=== PATIENT | male | born 2005 | race Caucasian/White ===

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

== ENCOUNTER 2025-04-24 15:28 | Outpatient (OUT) | payer BC, SELFPAY ==
--- OUTSIDE RECORDS SUMMARY | 2025-01-02 05:00 | XMS_ITS ---
Author Organization [facility] es Address [address] [place] [address] Care Team Providers Care Serger Name Role Phone Monica, Yamini Primary Care Provider YEFRI CRUZ Unavailable [phone] REASON FOR VISIT BH F/U Encounters Encounter Location Date Provider Diagnosis [facility] [address] [place] [address] 01/02/2025 Yamini Anderson Plan Of Treatment Next Appt Details Provider Name:Yamini A Rochelle n, 04/29/2025 01:15:00 PM, [address] [place], [address], Progress Notes * DEA GAGE RDOB: [birth year] (19 yo M)Acc No.[id number]:01/02/2025 Behavioral Health Patient: Adri DEA AMEZQUITA Provider: Dante Anderson CNP :2005 A ge:19 Y S ex:Male Date:01/02/2025 Address:[address] [place], [place] [id number] Subjective: * Chief Complaints: * 1 . BH F/U. * Medical History: Objective: * Vitals: Assessment: Plan: * Treatment: * Images: * Electronic signature of RYDER Medeiros on 04/24/2025 at 03:33 PM EDT Sign off status: Pending * Provider: Dante Anderson CNP Date: 0 01/02/2025 Generated for Ryan chung/Marcela/Dc on: 0 04/24/2025 03:33 PM EDT
--- OUTSIDE RECORDS SUMMARY | 2025-01-05 05:15 | XMS_ITS ---
Author Organization [facility] es Address [address] [place] [address] Care Team Providers Care Baker Operator Automatic Name Role Phone Monica, Yamini Primary Care Provider YEFRI CRUZ Unavailable [phone] REASON FOR VISIT R/S FROM 01/02; F/U Encounters Encounter Location Date Provider Diagnosis [facility] [address] [place] [address] 01/05/2025 Yamini Anderson Plan Of Treatment Next Appt Details Provider Name:Yamini Juan Rochelle n, 04/29/2025 01:15:00 PM, [address] [place], [address], Progress Notes * DEA GAGE RDOB: [birth year] (19 yo M)Acc No.[id number]:01/05/2025 Behavioral Health Patient: Adri DEA AMEZQUITA Provider: Dante Anderson CNP :2005 A ge:19 Y S ex:Male Date:01/05/2025 Address:[address] [place], [place] [address] Subjective: * Chief Complaints: * 1 . R/S FROM 01/02; F/U. * Medical History: Objective: * Vitals: Assessment: Plan: * Treatment: * Images: * Electronic signature of RYDER Medeiros on 04/24/2025 at 03:33 PM EDT Sign off status: Pending * Provider: Dante Anderson CNP Date: 0 01/05/2025 Generated for Ryan chung/Marcela/Brayanitting on: 0 04/24/2025 03:33 PM EDT
--- OUTSIDE RECORDS SUMMARY | 2025-03-27 12:30 | XMS_ITS ---
Author Organization [facility] es Address [address] [place] [address] Care Team Providers Care Registrar Assistant Name Role Phone Yamini Anderson Primary Care Provider YEFRI CRUZ REASON FOR VISIT BH F/U Medications Medication SIG (Take, Route, Frequency, Duration) Notes Start Date End Date Status busPIRone HCl 10 MG 1 tablet Orally Twic e a day; Duration: 90 days Active ARIPiprazole 10 MG TAKE 1 TABLET BY HAYDEE TH EVERY DAY FOR 90 DAYS; Duration: 30 Active Escitalopram Oxalate 10 MG 1 tablet Oral ly Once a day; Duration: 30 days 02/25/2025 Active Encounters Encounter Location Date [address] [place] [address] 03/27/2025 Yamini Anderson Plan Of Treatment Next Appt Details Provider Name:Yamini brennan, 04/29/2025 01:15:00 PM, [address] [place], [address], Progress Notes * DEA GAGE RDOB: [birth year] (19 yo M)Acc No.[id number]:03/27/2025 Behavioral Health Patient: DEA JOSE Provider: Dante Anderson CNP :2005 A ge:19 Y S ex:Male Date:03/27/2025 Address:[address] [place], [place] [id number] Subjective: * Chief Complaints: * 1 . BH F/U. * Medical History: * Medications: T aking busPIRone HCl 10 MG Tablet 1 tablet Orally Twice a day , Taking ARIPiprazole 10 MG Tablet TAKE 1 TABLET BY MOUTH EVERY DAY FOR 90 DAYS , Taking Escitalopram Oxalate 10 MG Tablet 1 tablet Orally Once a day Objective: * Vitals: Assessment: Plan: * Treatment: * Images: * Electronic signature of RYDER Medeiros on 04/24/2025 at 03:33 PM EDT Sign off status: Pending * Provider: Dante Anderson, KAYY Date: 03/27/2025 Generated for Ryan chung/Marcela/Dc on: 04/24/2025 03:33 PM EDT
--- OUTSIDE RECORDS SUMMARY | 2025-04-24 15:33 | XMS_ITS | Patient Health Record ---
Author Organization [facility] es Address [address] [place] [address] Care Team Providers Care Sweatband Cutting Machine Operator Name Role Phone Monica Yamini Primary Care Provider YEFRI CRUZ Unavailable Annie Moura Unavailable [phone] Christina Mayes Unavailable [phone] Allergies No Known Allergies Reason For Referral Reason 11/[address] [facility] er. pt. was already scheduled 11/18. referral from PCP for depression and anxiety Diagnosis 1 Encounter for screen ing examination for mental health and behavioral disorders (Z13.30) Referral Organization [facility] Referring Provider First Name YEFRI Referring Provider Last Name NANCY [facility] Referred Organization [facility] Referred Provider Annie Moura Referred Address [address], Referred Provider Specialty Medicatio ns Referral Priority Routine Medications Medication SIG (Take, Route, Frequency, Duration) Notes Start Date End Date Status ARIPiprazole 10 MG TAKE 1 TABLET BY HAYDEE TH EVERY DAY FOR 90 DAYS; Duration: 30 Active Escitalopram Oxalate 10 MG 1 tablet Oral ly Once a day; Duration: 30 days 02/25/2025 Active busPIRone HCl 10 MG TAKE 1 TABLET BY HAYDEE TH TWICE A DAY FOR 90 DAYS; Duration: 90 Active Social History Tobacco Use: Social History Observation Description Date Details (start date - stop date) Never Smoker NA - NA Depression Screening (PHQ-9): Question Answer Notes Little interest or pleasure in doing things Nearly every day Feeling down, depressed, or hopeless Nearly ever y day Trouble falling or staying a sleep, or sleeping too much Nearly every day Feeling tired or having little energy Nearly sunny ry day Poor appetite or overeating Several days Feeling bad about yourself-o r that you are a failure or have let yourself or your family down Nearly every day Trouble concentrating on thi ngs, such as reading the newspaper or watching television Nearly every day Moving or speaking so slowly that other people could have noticed. Or the opposite being so fidgety or restless that you have been moving around a lot more than usual Not at all Thoughts that you would be b urbano off , or of hurting yourself in some way Several days(Consider Suicide Assessment Risk) Total Score 20 Intepretation Severe Depression AUDIT-C (Standard) Question Answer Notes Did you have a drink containing alcohol in the p ast year? No Points 0 Interpretation Negative Tobacco Control (Standard) Question Answer Notes Tobacco use: Nonsmoker Problems Problem Type SNOMED Code ICD Code Onset Dates Problem Status W/U Status Risk Notes Problem Mixed bipolar affective disorder, severe, with psychosis (353085106) Bipolar disorder, current episode mixed, severe, with psychotic features (F31.64) Active confirmed Problem Generalized anxiety disorder (45290274) Anxiety, generalized (F41.1) Active confirmed Vital Signs Heart Rate 76 /min 02/25/2025 Temperature 97.9 degrees Fahrenheit 12/05/2024 Oximetry 99 % 02/25/2025 Blood pressure diastolic 63 mm Hg 02/25/2025 BMI Percentile 86.28 02/25/2025 Height 76 in 02/25/2025 Blood pressure systolic 133 mm Hg 02/25/2025 Weight 222.0 lbs 02/25/2025 BMI 27.02 kg/m2 02/25/2025 Encounters Encounter Location Date Provider Diagnosis [facility] [address] [place] [address] 10/29/2024 Annie Moura [facility] [address] [facility] [place] [address] 11/18/2024 Yamini Anderson Bipolar disorder, current episode mixed, severe, with psychotic features F31.64 [facility] [address] [place] [address] 12/05/2024 Yamini Anderson Bipolar disorder, current episode mixed, severe, with psychotic features F31.64 and Anxiety, generalized F41.1 [facility] [address] [place] [address] 02/25/2025 Yamini Anderson Anxiety, generalized F41.1 Assessments Encounter Date Diagnosis (ICD Code) Assessment Notes Treatment Notes Treatment Clinical Notes Section Notes 11/18/2024 Bipolar disorder, current episode mixed, severe, with psychotic features (ICD-10 - F31.64) Will start Abilify 5mg daily Continue Buspar as previously prescribed Based on DSM V, this patient meets the criteria for the diagnosis of: _ . Bipolar 1 Disorder . Recommended treatment is: _ Recommended treatment for Bipolar disorder includes FDA approved and OFF label medications: second generation antipsychotics and mood stabilizers. Second generation antipsychotic medications can cause headache, drowsiness, agitation, dizziness, nausea, or extrapyramidal symptoms such as tremors, muscle spasms, slowness of movement or jerking of muscles. . The patient verbalizes understanding with all questions answered thoroughly and is in agreement with treatment plan. . Continue current treatment Tolerating meds well, compliant Call for problems GOALS: Maintain medication regimen _Improve mood stability _Improve anxiety control _Improve social and interpersonal functioning Informed consent obtained: YES, we discussed the diagnosis/diagnoses , the treatment options, treatment(s) recommended vs. no treatment. We discussed risks and benefits of treatment options, treatment recommendations vs. no treatment. . Currently at low risk for self harm. Denies ongoing feelings of hopelessness. Denies ongoing suicidal ideation, intent or plan in session. . 12/05/2024 Bipolar disorder, current episode mixed, severe, with psychotic features (ICD-10 - F31.64) will increase Abilify to 10mg daily Patient will continue current treatment plan with changes noted above. Patient verbally acknowledges understanding instructions including medication education and has no further questions comments or concerns at this time. . Follow in 1 Month . Recommended treatment for Bipolar disorder includes FDA approved and OFF label medications: second generation antipsychotics and mood stabilizers. Second generation antipsychotic medications can cause headache, drowsiness, agitation, dizziness, nausea, or extrapyramidal symptoms such as tremors, muscle spasms, slowness of movement or jerking of muscles. . Stable . The patient verbalizes understanding with all questions answered thoroughly and is in agreement with treatment plan. . Continue current treatment. Call for problems . GOALS: . Maintain medication regimen . _Improve mood stability . _Improve anxiety control . _Improve social and interpersonal functioning . Patient/Guardian will call sooner if symptoms worsen. Patient understands to go to ER if needed if symptoms become severe. . Crisis Intervention plan was discussed and agreed upon. Patient/Guardian will call 911 in case of emergency. Emergency contact information was provided to the patient/guardian. . Pharmacological management: . Alternative medication plans were discussed with the patient/guardian. All relevant side effects and potential adverse effects were discussed with the patient/guardian. Standard cautions and potential benefits were discussed. Patient/Guardian consented to the start/continuation of the treatment. 12/05/2024 Anxiety, generalized (ICD-10 - F41.1) Mood has room for improvement, will increase *Buspar to 10mg BID. Discussed risks and side effects of medication. Patient denies SI/HI today. Follow up if mood does not improve. Patient verbalized understanding. 02/25/2025 Anxiety, generalized (ICD-10 - F41.1) Will start patient on * Escitalopram today. Discussed risks and side effects of medication including possible nausea, headache, upset stomach, diarrhea, constipation, anxiety, irritability, and sexual dysfunction. Most mild side effects improve over 4-6 weeks of use. Please monitor for worsening of symptoms, especially suicidal ideations or morbid thoughts, and call office and or go to the emergency department immediately if this occurs. Patient verbalized understanding, in agreement with plan. f/u in 1 month and PRN 12/05/2024 Other Body Mass Index : Care Instructions material was published, Body Mass Index: Care Instructions material was printed Plan Of Treatment Next Appt Details Provider Name:Yamini brennan, 04/29/2025 01:15:00 PM, [address] [place], [address], Insurance Providers Payer Name Payer Address Payer Phone Subscriber Number Group Number Insured Name Patient Relationship to Insured Coverage Start Date Coverage End Date [employer]THE[employer] Primary [address] [place] [address] [id number] DEA GAGE Self - patient is the insured Medical (General) History Medical History History ICD Code DEPRESSION ANXIETY
--- OUTSIDE RECORDS SUMMARY | 2025-04-24 15:34 | XMS_ITS | Clinical Summary ---
Author Organization [facility] Address [address] [place] [address] Care Team Providers Care Offline Cutter Name Role Phone Unavailable Primary Care Provider Unavailabl e Social History Tobacco Use Types Packs/Day Years Used Date Smoking Tobacco: Never Assessed Sex and Gender Information Value Date Recorded Sex Assigned at Not on file Legal Sex Male 6:43 PM EDT Gender Identity Not on file Sexual Orientation Not on file Last Filed Vital Signs Vital Sign Reading Time Taken Comments Blood Pressure 106/60 02/22/2018 12:00 PM EDT Pulse - - Temperature - - Respiratory Rate - - Oxygen Saturation - - Inhaled Oxygen Concentration - - Weight 73.2 kg (161 lb 6.4 oz) 02/23/20 18 12:00 PM EDT Height 175.3 cm (5' 9 ) 02/22/2018 12:0 0 PM EDT Body Mass Index 23.83 02/22/2018 12:00 PM EDT Body Mass Index Percentile 93.21% 02/22 12:00 PM EDT Growth Chart: CDC (Boys, 2-2 0 Years) Plan of Treatment Not on file
--- OUTSIDE RECORDS SUMMARY | 2025-04-24 15:34 | XMS_ITS | Clinical Summary ---
Author Organization [facility] Address [address] [place] [address] Care Team Providers Care Hospice Community Liaison Name Role Phone Robyn Sebastian MD Unavailable [phone] Allergies No known active allergies Medications No known medications Social History Tobacco Use Types Packs/Day Years Used Date Smoking Tobacco: Never Assessed Sex and Gender Information Value Date Recorded Sex Assigned at Not on file Legal Sex Male 2:08 PM EST Gender Identity Not on file Sexual Orientation Not on file Plan of Treatment Health Maintenance Due Date Last Done Comments Peds To Adult Transition Ini tial Discussion 2017 Peds To Adult Transition Aaliyah ual Assessment 2019 HPV Vaccine (1 - Male 3-dose series) 2020 Meningococcal B Vaccine (1 o f 2 - Standard) 2021 Anxiety Screening 2023 Depression Screening 2023 HIV Screening 2023 Hepatitis C Screening 2023 DTaP,Tdap,Td Vaccine (1 - Tdap) 2024 Hepatitis B Vaccine (1 of 3 - 19+ 3-dose series) 2024 Influenza Vaccine (#1) 2025 Meningococcal Conjugate Vaccine Aged Out No longer eligible based on patient's age to complete this topic Insurance [employer] Care Teams Hospice Community Liaison Relationship Specialty Start Date End Date Robyn Sebastian MD [address] [place] [address] Referring Family Medicine 10/24/21
--- OUTSIDE RECORDS SUMMARY | 2025-04-24 15:34 | XMS_ITS | Clinical Summary ---
Author Organization [facility] Address [address] [place] [address] Phone Care Team Providers Care Casing Wringer Operator Name Role Phone Robyn Sebastian MD Primary Care Provider Social History Tobacco Use Types Packs/Day Years Used Date Smoking Tobacco: Never Assessed Sex and Gender Information Value Date Recorded Sex Assigned at Not on file Legal Sex Male 9:30 PM EST Gender Identity Not on file Sexual Orientation Not on file Plan of Treatment Not on file Care Teams Casing Wringer Operator Relationship Specialty Start Date End Date Robyn Sebastian MD [address] [place], [place] [id number] PCP - General 05/25/17
--- OUTSIDE RECORDS SUMMARY | 2025-04-24 15:34 | XMS_ITS | Encounter Summary ---
Author Organization [facility] Address [address] [place] [address] Care Team Providers Care Slab Conditioner Supervisor Name Role Phone Unavailable Primary Care Provider Unavailabl e Encounter Details Date Type Department Care Team (Late st Contact Info) Description 02/07/2024 External Result Encounter [facility] External Department Unsolicited Karen Kelly NP [address] [facility] [address] [place] [address] Social History Tobacco Use Types Packs/Day Years Used Date Smoking Tobacco: Never Assessed Sex and Gender Information Value Date Recorded Sex Assigned at Not on file Legal Sex Male 6:43 PM EDT Gender Identity Not on file Sexual Orientation Not on file documented as of this encounter Plan of Treatment Not on file documented as of this encounter Procedures Procedure Name Priority Date/Time Associated Diagnosis Comments US SCROTUM 02/07/2024 2:59 PM EDT documented in this encounter Results * US scrotum (02/07/2024 2:59 PM EDT) Anatomical Region Laterality Modality Body Ultrasound 02/07/2024 2:59 PM EDT Impressions 02/07/2024 3:04 PM EDT 1. The testicles are normal in size and echogenicity. No intratesticular lesions. 2. No sonographic evidence of testicular ischemia. 3. A small amount of fluid is noted surrounding the testicles bilaterally. Impression dictated by: Corwin Damico M.D.02/07/2024 3:02 PM Dictation Location: [place] [address] Tech: Carolann Larson Transcribed By: ESSENCE 02/07/24 1502 Dictated By: Corwin Damico II, MD 02/07/24 1459 Signed By: <Electronically signed by Corwin Damico II, MD in [place]> 02/07/24 1502 Narrative 02/07/2024 3:04 PM EDT [facility] Main [address] [address] Ultrasound Report Signed Patient: Edgar Nuñez MR#: [id number] : 2005 Acct:[id number] Age/Sex: 18 / M ADM Date: 02/07/24 Loc: ER Room: Type: [facility] ER Attending Dr: Ordering Provider: Karen Kelly APRN Date of Service: 02/07/24 US/US scrotum: scrotum Copies to: Karen Kelly APRN EXAMINATION TYPE: US scrotum grayscale, color Doppler, waveform duplex analysis was performed. DATE OF EXAM ORDERED: 02/07/2024 1:26 PM HISTORY: Crushing injury to right testicle COMPARISON: NONE TECHNIQUE: Realtime imaging of the scrotum was performed. Zhou scale, color Doppler and spectral Doppler imaging of the testicles was performed. FINDINGS: Testicles: Both testicles demonstrate homogeneous echotexture without intratesticular filling defect. Right measurements: 5.2 x 2.6 x 3.1 cm Left measurements: 5.2 x 2.4 x 3.1 cm Epididymis: The bilateral epididymides demonstrate normal echogenicity without focal lesion. Right measurements: 12 x 9 x 9 mm Left measurements: 12 x 10 x 7 mm Hydrocele: A small amount of fluid is noted surrounding the testicles bilaterally. Doppler ultrasound of the testicles: Arterial and venous waveforms are seen within both testicles. No sonographic evidence of testicular ischemia. US/US scrotum Procedure Note Radiology, Radiologist, MD - 02/07/2024 [facility] Main [place] [address] [place] [id number] Ultrasound Report Signed Patient: Edgar Nuñez RMR#: [id number] : 2005Acct:[id number] Age/Sex: 18 / MADM Date: 02/07/24 Loc: ER Room:Type: REG ER Attending Dr: Ordering Provider: Karen Kelly APRN Date of Service: 02/07/24 US/US scrotum: scrotum Copies to: Karen Kelly APRN EXAMINATION TYPE: US scrotum grayscale, color Doppler, waveform duplexanalysis was performed. DATE OF EXAM ORDERED: 02/07/2024 1:26 PM HISTORY: Crushing injury to right testicle COMPARISON: NONE TECHNIQUE: Realtime imaging of the scrotum was performed. Zhou scale,color Doppler and spectral Doppler imaging of the testicles was performed. FINDINGS: Testicles: Both testicles demonstrate homogeneous echotexture withoutintratesticular filling defect. Right measurements: 5.2 x 2.6 x 3.1 cm Left measurements: 5.2 x 2.4 x 3.1 cm Epididymis: The bilateral epididymides demonstrate normal echogenicitywithout focal lesion. Right measurements: 12 x 9 x 9 mm Left measurements: 12 x 10 x 7 mm Hydrocele: A small amount of fluid is noted surrounding the testiclesbilaterally. Doppler ultrasound of the testicles: Arterial and venous waveforms are seen within both testicles. Nosonographic evidence of testicular ischemia. US/US scrotum IMPRESSION: 1. The testicles are normal in size and echogenicity. No intratesticularlesions. 2. No sonographic evidence of testicular ischemia. 3. A small amount of fluid is noted surrounding the testicles bilaterally. Impression dictated by: Corwin Damico M.D.02/07/2024 3:02 PM Dictation Location: [place] [address] Tech: Carolann Larson Transcribed By: [facility] 02/07/24 1502 Dictated By: Corwin Damico II, MD 02/07/24 3289 Signed By: <Electronically signed by Corwin Damico II, MD inOV> 02/07/24 1502 us Karen Kelly FAIRGROUND OPERATOR IMG US PROCEDURES Final R esult documented in this encounter Visit Diagnoses Not on filedocumented in this encounter
--- OUTSIDE RECORDS SUMMARY | 2025-04-24 15:34 | XMS_ITS | Clinical Summary ---
Author Organization [facility] Address [address], [address] [place] [address] Care Team Providers Care Chemical Preparer Name Role Phone Robyn Sebastian MD Primary Care Provider Unavailab le Allergies No known active allergies Medications No known medications Active Problems Problem Noted Date Diagnosed Date Constipation 06/17/2014 Nocturnal enuresis 06/16/2014 Abdominal pain, other specified site 06/16/2014 Social History Tobacco Use Types Packs/Day Years Used Date Smoking Tobacco: Never Alcohol Use Standard Drinks/Week Comments Not Asked 0 (1 standard drink = 0.6 oz pur e alcohol) Sex and Gender Information Value Date Recorded Sex Assigned at Not on file Legal Sex Male 9:00 AM EDT Gender Identity Not on file Sexual Orientation Not on file Last Filed Vital Signs Vital Sign Reading Time Taken Comments Blood Pressure - - Pulse - - Temperature - - Respiratory Rate - - Oxygen Saturation - - Inhaled Oxygen Concentration - - Weight 45.4 kg (100 lb) 06/15/2014 2:14 PM EDT Height 146 cm (4' 9.48 ) 06/15/2014 2:14 PM EDT Body Mass Index 21.28 06/15/2014 2:14 PM EDT Body Mass Index Percentile 95.26% 06/15/2014 2:1 4 PM EDT Growth Chart: CDC (Boys, 2-2 0 Years) Plan of Treatment Not on file Insurance [employer] Care Teams Chemical Preparer Relationship Specialty Start Date End Date Robyn Sebastian MD [address] [place] [address] PCP - General 05/19/14
--- OUTSIDE RECORDS SUMMARY | 2025-04-24 15:42 | XMS_ITS | CCD ---
Author Organization [facility] CliniSymd Care Team Providers Care Content Architect Name Role Phone JAYDA SEBASTIAN Primary Care Physician CHIOMA ., DR JAYDA Rueda Primary Care Unavailable MONET ., JEFFREY Admitting Unavailable MONET ., JEFFREY Attending Unavailable MONET ., JEFFREY Consulting Unavailable AYO DEISI B Admitting Unavailable ZIEBER, DR KM Obrien Consulting Unavailable APLING, DEISI B Attending Unavailable SEBASTIAN ., DR JYADA Rueda Primary Care Unavailable APLING, DEISI B Consulting Unavailable SEBASTIAN ., DR JAYDA Rueda Attending Unavailable SEBASTIAN ., DR JAYDA Rueda Consulting Unavailable SEBASTIAN ., DR JAYDA Rueda Primary Care Unavailable SEBASTIAN ., DR JAYDA Rueda Admitting Unavailable SEBASTIAN ., DR JAYDA Rueda Primary Care Unavailable MONET ., JEFFREY Admitting Unavailable MONET ., JEFFREY Attending Unavailable MONET ., JEFFREY Consulting Unavailable GRIFFIN MONTELONGO Consulting Unavailable JAYDA SEBASTIAN Primary Care Physician [phone] Natasha North Attending Unavailable Natasha North Attending Unavailable Orzech, Silvia X Attending Unavailable Orzech, Silvia X Admitting Unavailable Orzech, Silvia X Attending Unavailable Karina Carrera Unavailable REYES Carrera Primary Care Provider REYES Carrera Attending Provider [phone] REYES Kelly Emergency Provider [phone] REYES Carrera Primary Care Provider MAC Deleon Emergency Provider [phone] REYES Carrera Primary Care Provider REYES Carrera Attending Provider [phone] Karina Carrera APRN Primary Care Provider Jorge Parker MD Emergency Provider [phone] Karina Carrera Attending Unavailable Jessrbacher, Karina Admitting Unavailable Rohrbacher, Karina Primary Care Unavailable Karina Carrera Attending Unavailable Jessrbacher, Karina Admitting Unavailable Rohrbacher, Karina Primary Care Unavailable Bullimore, Rmaila E Admitting Unavailable Bullimore, Ramila E Attending Unavailable Debi, Karina Primary Care Unavailable Jorge Parker Jr Attending Unavailable Jorge Parker Jr Admitting Unavailable Jessrbacher, Karina Primary Care Unavailable Karen Kelly Admitting Unavailable Karen Kelly Attending Unavailable Harrisr, Karina Primary Care Unavailable Karina Carrera APRN Primary Care Provider Jorge Parker MD Emergency Provider Karina Carrera APRN Primary Care Provider Karina Carrera APRN Attending Provider Medications Current Medications Medication Drug Class(es) Dates Sig (Normalized) Sig (Original) diphenhydrAMINE hydrochloride 25 mg oral capsule (2 sources) Histamine-1 Receptor Antagonist Start: 02-10-2016 take 1 capsule by mouth three times daily as needed Benadryl 25 mg Cap 1 -2 caps, Oral, TID, PRN for itching, # 30 cap(s), Refills(s) 0 Start Date: 02/10/16 Status: Ordered lidocaine 0.05 mg/mg medicated patch (2 sources) Antiarrhythmic, Amide Local Anesthetic Start: 09-27-2022 Lidoderm 5% Patch 1 patch(es), Topical, Daily, 7 EA, Refill(s) 0, apply 12 hours on and 12 hours off daily, [facility]/pharmacy #[id number], 193, cm, 09/27/22 16:43:00 EST, Height/Length Dosing, 93.4, kg, 09/27/22 16:43:00 EST, Weight Dosing Start Date: 09/27/22 Status: Ordered naproxen 500 mg oral tablet (2 sources) Nonsteroidal Anti-inflammatory Drug Start: 09-27-2022 take 1 tablet by mouth twice daily Naprosyn 500 mg Tab 500 mg = 1 tab(s), Oral, BID, # 20 tab(s), Refills(s) 0, Pharmacy: [facility]/pharmacy #[id number], 193, cm, 09/27/22 16:43:00 EST, Height/Length Dosing, 93.4, kg, 09/27/22 16:43:00 EST, Weight Dosing Start Date: 09/27/22 Status: Ordered [place] (No Known Home Meds) (3 sources) Start: 04-25-2024 [place] (No Known Home Meds) Active April 25, 2024 12:00am polymyxin b 67649 unt/ml / trimethoprim 1 mg/ml ophthalmic solution (1 source) Dihydrofolate Reductase Inhibitor Antibacterial, Polymyxin-class Antibacterial Start: 10-25-2022 End: 11-04-2022 Polytrim 10 mL Soln-Opth 1 drop(s), OPTH, q3hr for 10 day(s), 10 mL, Refill(s) 0, [facility]/pharmacy #[id number], 193, cm, 10/25/22 17:24:00 EST, Height/Length Dosing, 93.4, kg, 10/25/22 17:24:00 EST, Weight Dosing Start Date: 10/25/22 Stop Date: 11/04/22 Status: Ordered QUEtiapine 25 mg oral tablet (1 source) Atypical Antipsychotic Start: 04-23-2025 take 1 tablet by mouth once daily at bedtime Quetiapine (Seroquel) 25 mg tablet Active 25 MG PO Daily at bedtime April 23, 2025 12:00am Complies with drug therapy Completed/Discontinued Medications Medication Drug Class(es) Dates Sig (Normalized) Sig (Original) acetaminophen 325 mg / HYDROcodone bitartrate 5 mg oral tablet (5 sources) Opioid Agonist Start: 08-15-2024 End: 08-25-2024 take 1 tablet by mouth every six hours as needed for pain Hydrocodone-Acetam inophen 5-325 mg tablet Discontinued 1 TAB PO Q6H as needed for pain 03 21August 15, 2024 August 25, 2024 2:54pm azithromycin 250 mg oral tablet (2 sources) Macrolide Antimicrobial Start: 12-31-2024 End: 04-23-2025 Azithromycin 250 mg tablet Discontinued 0 PO daily 6 December 31, 2024 12:00am April 23, 2025 1:01pm Take 2 on day 1 and then take 1 for the next 4 days (days 2-5) busPIRone hydrochloride 5 mg oral tablet (7 sources) Start: 10-27-2024 End: 04-23-2025 take 1 tablet by mouth twice daily Buspirone 5 mg tablet Discontinued 5 MG PO Twice daily 60 November 24, 2024 9:16am April 23, 2025 1:01pm diclofenac sodium 0.01 mg/mg topical gel (10 sources) Nonsteroidal Anti-inflammatory Drug Start: 04-17-2024 End: 04-25-2024 apply 4 g topically four times daily Diclofenac Sodium 1 % gel Discontinued 4 GM TOPICAL Four times daily April 17, 2024 12:00am April 25, 2024 9:38am apply to single knee, ankle, foot; for foot includes sole/toes/top of foot Start: 04-17-2024 End: 04-25-2024 apply 4 g topically four times daily Diclofenac Sodium Discontinued 4 GM TOPICAL Four times daily April 17, 2024 12:00am April 25, 2024 9:38am apply to single knee, ankle, foot; for foot includes sole/toes/top of foot famotidine 20 mg oral tablet (10 sources) Histamine-2 Receptor Antagonist Start: 08-15-2024 End: 10-27-2024 take 1 tablet by mouth twice daily Famotidine (Pepcid) 20 mg tablet Discontinued 20 MG PO Twice daily 60 August 25, 2024 1:00am October 27, 2024 2:38pm methylPREDNISolone 4 mg oral tablet (3 sources) Corticosteroid Start: 12-08-2024 End: 12-31-2024 take 1 tablet by mouth once Methylprednisolone (Medrol ([place])) 4 mg tablets,dose pack Discontinued 0 PO per package directions December 08, 2024 12:00am December 31, 2024 2:42pm PO PER PKG DIR ondansetron 4 mg disintegrating oral tablet (5 sources) Serotonin-3 Receptor Antagonist Start: 08-15-2024 End: 08-25-2024 take 1 tablet by mouth every eight hours as needed for nausea and vomiting Ondansetron 4 mg tablet,disintegrating Discontinued 4 MG PO Q8H as needed for nausea and vomiting August 15, 2024 1:00am August 25, 2024 2:54pm predniSONE 20 mg oral tablet (10 sources) Start: 04-17-2024 End: 04-25-2024 take 2 tablets by mouth once daily Prednisone 20 mg tablet Discontinued 40 MG PO Daily 8 April 17, 2024 12:00am April 25, 2024 9:38am Start: 04-17-2024 End: 04-25-2024 take 40 mg by mouth once daily Prednisone Discontinued 40 MG PO Daily 8 April 17, 2024 12:00am April 25, 2024 9:38am Problems Active Problems Problem Classification Problem Date Documented Da te Episodic/Chronic Abdominal pain (7 sources) Right upper quadrant pain; Translations: [Abdominal pain] Onset: 4 Episodic Anxiety disorders (14 sources) Anxiety; Translations: [Anxiety disorder, unspecified] Onset: 4 05-22-2024 Chronic E Codes: Fall (1 source) Unspecified fall, initial encounter; Translations: [UNSPECIFIED FALL INITIAL ENCOUNTER] Onset: 3 Episodic E Codes: Struck by; against (1 source) Striking against or struck by other objects, initial encounter; Translations: [STRIKING AGNST/STRUCK OTH OBJ INIT] Onset: 3 Episodic Esophageal disorders (7 sources) Gastroesophageal reflux disease; Translations: [Gastro-esophageal reflux disease without esophagitis] 08-25-2024 Chronic Esophageal disorders (5 sources) Jacqui-Castillo syndrome; 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] 08-23-2024 Episodic Inflammation; infection of eye (except that caused by tuberculosis or sexually transmitteddisease) (1 source) Conjunctivitis; Translations: [Unspecified conjunctivitis] Onset: 3 Episodic Intracranial injury (1 source) Concussion without loss of consciousness, initial encounter; Translations: [CONCUSSION WITHOUT LOC INITIAL ENC] Onset: 3 Episodic Malaise and fatigue (13 sources) Other fatigue; Translations: [Fatigue] Onset: 4 Episodic Mood disorders (12 sources) Depressive disorder; Translations: [Depression] 10-27-2024 Chronic Nausea and vomiting (11 sources) Nausea; Translations: [Vomiting, unspecified] Onset: 3 Episodic Other connective tissue disease (10 sources) Pain in right arm; Translations: [Pain in right arm] 04-17-2024 Episodic Other gastrointestinal disorders (2 sources) Diarrhea, unspecified; Translations: [Diarrhea, unspecified] Onset: 4 Episodic Other injuries and conditions due to external causes (9 sources) Injury of ulnar nerve; Translations: [Injury of ulnar nerve at forearm level, unspecified arm, initial encounter] 04-22-2024 Episodic Other injuries and conditions due to external causes (7 sources) Injury of ulnar nerve at forearm level, unspecified arm, initial encounter; Translations: [Injury to ulnar nerve] 04-22-2024 Episodic Other male genital disorders (11 sources) Lesion of genitalia; Translations: [Hydrocele, unspecified] 02-07-2024 Episodic Other male genital disorders (11 sources) Pain of right testicle; Translations: [Right testicular pain] 02-07-2024 Episodic Other nervous system disorders (1 source) Chronic pain; Translations: [Other chronic pain] Onset: 3 Chronic Other nervous system disorders (1 source) Other chronic pain; Translations: [Other chronic pain] Onset: 4 Chronic Other non-traumatic joint disorders (4 sources) Other specific joint derangements of left shoulder, not elsewhere classified; Translations: [OTH SPEC JOINT DERANG LT SHLDR NEC] Onset: 3 Chronic Other non-traumatic joint disorders (3 sources) Pain in left shoulder; Translations: [PAIN IN LEFT SHOULDER] Onset: 3 Episodic Other nutritional; endocrine; and metabolic disorders (1 source) Child weight centiles - finding; Translations: [Body mass index (BMI) pediatric, 85th percentile to less than 95th percentile for age] Onset: 3 Episodic Other upper respiratory disease (2 sources) Allergic rhinitis; Translations: [Allergic rhinitis, unspecified] 12-08-2024 Chronic Other upper respiratory disease (1 source) Allergic rhinitis, unspecified; Translations: [Allergic rhinitis, cause unspecified] 12-08-2024 Chronic Other upper respiratory infections (3 sources) Acute upper respiratory infection; Translations: [Acute upper respiratory infection, unspecified] Onset: 3 Episodic Otitis media and related conditions (4 sources) Infection of ear 02-05-2014 Episodic Comment on above: mother reported rece nt ear infection, child finished medication 02/06/2010 Residual codes; unclassified (2 sources) Disturbance in sleep behavior; Translations: [Sleep disorder, unspecified] 04-23-2025 Episodic Spondylosis; intervertebral disc disorders; other back problems (17 sources) Prolapsed lumbar intervertebral disc; Translations: [Other intervertebral disc displacement, lumbar region] Onset: 4 11-23-2023 Chronic Spondylosis; intervertebral disc disorders; other back problems (17 sources) Backache; Translations: [Dorsalgia, unspecified] Onset: 3 Episodic Sprains and strains (1 source) Strain of unspecified muscle, fascia and tendon at shoulder and upper arm level, left arm, initial encounter; Translations: [STRN UNS MSC F TND SHLDR UA LA INIT] Onset: 3 Episodic Superficial injury; contusion (16 sources) Contusion of right elbow; Translations: [Contusion of right elbow, initial encounter] 04-22-2024 Episodic Unclassified (3 sources) CONTACT W/AND (SUSP) EXPOS COVID-19; Translations: [CONTACT W/AND (SUSP) EXPOS COVID-19] Onset: 2 Unclassified (1 source) Low back pain, unspecified; Translations: [Low back pain, unspecified] Onset: 4 Past or Other Problems Problem Classification Problem Date Documented Da te Episodic/Chronic Other connective tissue disease (1 source) Pain in right arm; Translations: [Pain in right arm] Onset: 04-17-2024 Episodic Other male genital disorders (1 source) Right testicular pain; Translations: [Right testicular pain] Onset: 02-07-2024 Episodic Unclassified (1 source) CONTACT W/AND (SUSP) EXPOS COVID-19; Translations: [CONTACT W/AND (SUSP) EXPOS COVID-19] Onset: 05-10-2022 Results Test Name Value Interpretation Reference Range Facility Alanine aminotransferase [En zymatic activity/volume] in Serum or PlasmaOrdered By: Andrei Leyva on 08-15-2024 ALT [Catalytic activity/Vol] Alanine aminotransferase [Enzymatic activity/volume] in Serum or Plasma [facility] Albumin [Mass/volume] in Ser um or Plasma by Bromocresol green (BCG) dye binding methoOrdered By: Andrei Leyva on 08-15-2024 Albumin BCG dye [Mass/Vol] Albumin [Mass/volume] in Serum or Plasma by Bromocresol green (BCG) dye binding metho 3.5-5.7 [facility] Alkaline phosphatase [Enzyma tic activity/volume] in Serum or PlasmaOrdered By: Andrei Leyva on 08-15-2024 ALP [Catalytic activity/Vol] Alkaline phosphatase [Enzymatic activity/volume] in Serum or Plasma 34-104 [facility] Appearance of UrineOrdered B y: Andrei Leyva on 08-15-2024 Appearance (U) Urine appearance Clear [facility] Aspartate aminotransferase [ Enzymatic activity/volume] in Serum or PlasmaOrdered By: Andrei Leyva on 08-15-2024 AST [Catalytic activity/Vol] Aspartate aminotransferase [Enzymatic activity/volume] in Serum or Plasma 13-39 [facility] Bacteria [Presence] in Urine by AutomatedOrdered By: Andrei Leyva on 08-15-2024 Bacteria Auto Ql (U) Bacteria [Presence] in Urine by Automated None Seen [facility] Basic Metabolic Panelon 07-21 Anion gap [Moles/Vol] 9.7 mmol/L Normal 6.0-15.0 [facility] Comment on above: Performed By: #### H EPATIC, BMP, LIPASE, CBC #### [facility] [address] [place] [address] [place] Calcium [Mass/Vol] 8.9 mg/dL Normal 8.6-10.3 [facility] Comment on above: Performed By: #### H EPATIC, BMP, LIPASE, CBC #### [facility] [address] [place] [id number] [place] Chloride [Moles/Vol] 104 mmol/L Normal 98-107 [facility] Comment on above: Performed By: #### H EPATIC, BMP, LIPASE, CBC #### [facility] [address] [place] [phone] [place] CO2 [Moles/Vol] 29.9 mmol/L Normal 21.0-31.0 [facility] Comment on above: Performed By: #### H EPATIC, BMP, LIPASE, CBC #### [facility] [address] Creatinine [Mass/Vol] 1.06 mg/dL Normal 0.70-1.30 [facility] Comment on above: Performed By: #### H EPATIC, BMP, LIPASE, CBC #### [facility] [address] [place] [address] [place] Creatinine Clr Calc Pharmacy 137.62 Normal [facility] Comment on above: Performed By: #### H EPATIC, BMP, LIPASE, CBC #### [facility] [address] [place] [address] [place] GFR/1.73 sq M.predicted MDRD (S/P/Bld) [Vol rate/Area] mL/min/{1.73_m2} Normal [facility] Comment on above: Performed By: #### H EPATIC, BMP, LIPASE, CBC #### [address] Glucose [Mass/Vol] 89 mg/dL Normal 70-100 [facility] Comment on above: Result Comment: [facility] Glucose Reference Range is dependent on time and content of last meal. Glucose of more than 200 mg/dL in a nonstressed, ambulatory subject supports the diagnosis of Diabetes Mellitus. ADA recommended reference range Performed By: #### H EPATIC, BMP, LIPASE, CBC #### [place] [address] [place] Potassium [Moles/Vol] 3.6 mmol/L Normal 3.5-5.1 [facility] Comment on above: Performed By: #### H EPATIC, BMP, LIPASE, CBC #### [facility] [address] [place] [address] [place] Sodium [Moles/Vol] 140 mmol/L Normal 136-145 [facility] Comment on above: Performed By: #### H EPATIC, BMP, LIPASE, CBC #### [address] Urea nitrogen [Mass/Vol] 13 mg/dL Normal 7-25 [facility] Comment on above: Performed By: #### H EPATIC, BMP, LIPASE, CBC #### [address] Basophils Auto (Bld) [#/Vol] Ordered By: Andrei Leyva on 08-15-2024 Basophils (Bld) [#/Vol] Automated basoph il count 0.0-0.2 [facility] Basophils/100 WBC Auto (Bld) Ordered By: Andrei Leyva on 08-15-2024 Basophils/100 WBC (Bld) Automated basophil % . [facility] Bilirubin Test strip Ql (U)O rdered By: Andrei Leyva on 08-15-2024 Bilirubin Ql (U) Bilirubin.total [Presence] in Urine by Test strip Negative [facility] Bilirubin.direct [Mass/volum e] in Serum or PlasmaOrdered By: Andrei Leyva on 08-15-2024 Bilirubin.direct [Mass/Vol] Bilirubin.direct [Mass/volume] in Serum or Plasma 0.03-0.18 [facility] Bilirubin.total [Mass/volume ] in Serum or PlasmaOrdered By: Andrei Leyva on 08-15-2024 Bilirubin [Mass/Vol] Bilirubin.total [Mass/volume] in Serum or Plasma 0.3-1.[address] [facility] [address] abdomen pelvis w conon CT abdomen pelvis w con [facility] [address] CT Scan Report Signed Patient: Edgar Nuñez MR#: [id number] : 2005 Acct:[id number] Age/Sex: 19 / M ADM Date: 08/14/24 Loc: ER Room: Type: [facility] ER Attending Dr: Copies to: Jorge Parker Jr, MD Ordering Provider: Jorge Parker Jr, MD Date of Service: 08/15/24 CT/CT abdomen pelvis w con: abdom pain, vomiting, blood in stool, can't eat CT ABDOMEN AND PELVIS WITH CONTRAST COMPARISON: None CLINICAL DATA: Nausea, vomiting, diarrhea and generalized abdominal pain. Oral images were obtained through the abdomen and pelvis following 90 mL Isovue-300. This CT exam was performed using one or more following dose reduction techniques: Automated exposure control, adjustment of the mA and/or kV according to patient size, or use of iterative reconstruction technique. Limited cuts through the lung bases show no contributory findings. No calcified gallstones are identified. The liver, spleen, pancreas and adrenal glands show no acute findings. There are symmetric renal nephrograms, without hydronephrosis. There are tiny right renal cysts. The abdominal aorta is normal caliber. Small retroperitoneal and mesenteric lymph nodes are present. No ascites is seen. There are no dilated small bowel loops. There is fluid and food debris within the stomach. There is air and mild stool along the colon. Subtle levoscoliotic curvature is visualized at the spine. Images through the pelvis show nondistended small bowel loops, some containing fluid. No appendiceal inflammation is identified. There is air at the rectum. The sigmoid colon is underdistended. The urinary bladder shows no CT abnormalities for the degree of distention. No ascites is seen. CT/CT abdomen pelvis w con IMPRESSION: NO ACUTE INTRA-ABDOMINAL OR PELVIC FINDINGS. Impression dictated by: Melanie Ann M.D.08/15/2024 7:11 AM Dictation Location: [place] [address] Transcribed By: ESSENCE 08/15/24710 Dictated By: Melanie Ann MD 08/15/2407 Signed By: 08/15/24 07 Normal [facility] Calcium [Mass/volume] in Ser um or PlasmaOrdered By: Andrei Leyva on 08-15-2024 Calcium [Mass/Vol] Calcium [Mass/volume ] in Serum or Plasma 8.6-10.3 [facility] Carbon dioxide, total [Moles /volume] in Serum or PlasmaOrdered By: Andrei Leyva on 08-15-2024 CO2 [Moles/Vol] Carbon dioxide, tota l [Moles/volume] in Serum or Plasma 21.0-31.0 [facility] Chloride [Moles/volume] in S antonia or PlasmaOrdered By: Andrei Leyva on 08-15-2024 Chloride [Moles/Vol] Chloride [Moles/volume] in Serum or Plasma 98-107 [facility] Color Auto (U)Ordered By: Ferdinand Leyva on 08-15-2024 Color (U) Color of Urine by Auto Yellow Fi [facility] Complete Blood Count Auto Di ffon 08-15-2024 Basophils (Bld) [#/Vol] 0.0 10*3/uL Normal 0.0-0.2 [facility] Comment on above: Result Comment: PERF ORMED BY: [place] [id number] PATHOLOGIST [employer]ARD[employer]ERSON KIMMY CARROLL M.D. Performed By: #### H EPATIC, BMP, LIPASE, CBC #### [address] Basophils/100 WBC (Bld) 0.6 % Normal . T stacie [facility] Comment on above: Performed By: #### H EPATIC, BMP, LIPASE, CBC #### [address] Eosinophils (Bld) [#/Vol] 0.2 10*3/uL Normal 0.0-0.45 [facility] Comment on above: Performed By: #### H EPATIC, BMP, LIPASE, CBC #### [address] Eosinophils/100 WBC (Bld) 4.4 % Normal . [facility] Comment on above: Performed By: #### H EPATIC, BMP, LIPASE, CBC #### [address] Erythrocyte distribution width (RBC) [Ratio] 12.6 % Normal 12.0-14.8 [facility] Comment on above: Performed By: #### H EPATIC, BMP, LIPASE, CBC #### [address] Hematocrit (Bld) [Volume fraction] 37.5 % Low 38.8-50.0 [facility] Comment on above: Performed By: #### H EPATIC, BMP, LIPASE, CBC #### [address] Hemoglobin (Bld) [Mass/Vol] 13.1 g/dL Normal 13.0-17.0 [facility] Comment on above: Performed By: #### H EPATIC, BMP, LIPASE, CBC #### [address] Lymphocytes (Bld) [#/Vol] 1.7 10*3/uL Normal 1.00-4.8 [facility] Comment on above: Performed By: #### H EPATIC, BMP, LIPASE, CBC #### [address] Lymphocytes/100 WBC (Bld) 43.7 % Normal . [facility] Comment on above: Performed By: #### H EPATIC, BMP, LIPASE, CBC #### [address] MCH (RBC) [Entitic mass] 30.0 pg Normal 27.5-35.2 [facility] Comment on above: Performed By: #### H EPATIC, BMP, LIPASE, CBC #### [address] MCV (RBC) [Entitic vol] 86.2 fL Normal 83.5-101 [facility] Comment on above: Performed By: #### H EPATIC, BMP, LIPASE, CBC #### [address] Mean Corpuscular HGB Conc 34.8 g/dL Normal 32.5-35.6 [facility] Comment on above: Performed By: #### H EPATIC, BMP, LIPASE, CBC #### [address] Monocytes (Bld) [#/Vol] 0.7 10*3/uL Normal 0.0-0.8 [facility] Comment on above: Performed By: #### H EPATIC, BMP, LIPASE, CBC #### [address] Monocytes/100 WBC (Bld) 22.06 % High 0.00-20.00 [facility] Comment on above: Result Comment: For adults in ED, MDW > 20.0 may be associated with a higher risk of sepsis during the first 12 hrs of hospital admission Performed By: #### H EPATIC, BMP, LIPASE, CBC #### [address] Monocytes/100 WBC (Bld) 16.8 % Normal . [facility] Comment on above: Performed By: #### H EPATIC, BMP, LIPASE, CBC #### [address] Neutrophils (Bld) [#/Vol] 1.3 10*3/uL Low 1.8-7.7 [facility] Comment on above: Performed By: #### H EPATIC, BMP, LIPASE, CBC #### [address] Neutrophils/100 WBC (Bld) 34.5 % Normal . [facility] Comment on above: Performed By: #### H EPATIC, BMP, LIPASE, CBC #### [address] NRBC% 0.1 /100{WBC} Normal 0-0.5 [facility] Comment on above: Performed By: #### H EPATIC, BMP, LIPASE, CBC #### [address] Platelet mean volume (Bld) [Entitic vol] 7.3 fL Normal 6.6-10.1 [facility] Comment on above: Performed By: #### H EPATIC, BMP, LIPASE, CBC #### [address] Platelets (Bld) [#/Vol] 262 10*3/uL Normal 150-450 [facility] Comment on above: Performed By: #### H EPATIC, BMP, LIPASE, CBC #### [address] RBC (Bld) [#/Vol] 4.35 10*6/uL Normal 3.90-5.60 [facility] Comment on above: Performed By: #### H EPATIC, BMP, LIPASE, CBC #### [facility] [address] [place] [address] [place] WBC (Bld) [#/Vol] 3.9 10*3/uL Low 4.1-10.5 [facility] Comment on above: Performed By: #### H EPATIC, BMP, LIPASE, CBC #### [facility] [address] [place] [address] [place] Creatinine [Mass/volume] in Serum or PlasmaOrdered By: Andrei Leyva on 08-15-2024 Creatinine [Mass/Vol] Creatinine [Mass/volume] in Serum or Plasma 0.70-1.30 [facility] Dipstick and Microscopicon 1 10-16-2023 Appearance (U) Clear Normal Clear [facility] Comment on above: Order Comment: Name Collection Type:: Clean-Voided Midstream Performed By: #### A DDONUAPLUS #### [place] [address] [place] Bacteria,Urine None Seen Normal None Seen [facility] Comment on above: Order Comment: Name Collection Type:: Clean-Voided Midstream Performed By: #### A DDONUAPLUS #### [place] [address] [place] Bilirubin,Urine Negative Normal Negative [facility] Comment on above: Order Comment: Name Collection Type:: Clean-Voided Midstream Performed By: #### A DDONUAPLUS #### [place] [address] [place] Color (U) Yellow Normal Yellow [facility] Comment on above: Order Comment: Name Collection Type:: Clean-Voided Midstream Performed By: #### A DDONUAPLUS #### [place] [id number] [place] Glucose Ql (U) Normal Normal Normal [facility] Comment on above: Order Comment: Name Collection Type:: Clean-Voided Midstream Performed By: #### A DDONUAPLUS #### [place] [id number] [place] Hyaline Casts,Urine None Normal 0-8 [facility] Comment on above: Order Comment: Name Collection Type:: Clean-Voided Midstream Performed By: #### A DDONUAPLUS #### [address] Ketones Ql (U) Negative Normal Negative [facility] Comment on above: Order Comment: Name Collection Type:: Clean-Voided Midstream Performed By: #### A DDONUAPLUS #### [address] Leukocyte esterase Test strip Ql (U) Negative Normal Negative [facility] Comment on above: Order Comment: Name Collection Type:: Clean-Voided Midstream Performed By: #### A DDONUAPLUS #### [place] [address] [place] Mucus,Urine Rare Normal [facility] Comment on above: Order Comment: Name Collection Type:: Clean-Voided Midstream Result Comment: PERF ORMED BY: [place] [id number] PATHOLOGIST [employer] KIMMY CARROLL M.D. Performed By: #### A DDONUAPLUS #### [place] [address] [place] Nitrite,Urine Negative Normal Negative [facility] Comment on above: Order Comment: Name Collection Type:: Clean-Voided Midstream Performed By: #### A DDONUAPLUS #### [place] [address] [place] Occult Blood,Urine Negative Normal Negative [facility] Comment on above: Order Comment: Name Collection Type:: Clean-Voided Midstream Result Comment: PERF ORMED BY: [place] [id number] PATHOLOGIST [employer] KIMMY CARROLL M.D. Performed By: #### A DDONUAPLUS #### [place] [address] [place] pH (U) 6.0 [pH] Normal 5.0-9.0 [facility] Comment on above: Order Comment: Name Collection Type:: Clean-Voided Midstream Performed By: #### A DDONUAPLUS #### [address] Protein,Urine Trace High Negative [facility] Comment on above: Order Comment: Name Collection Type:: Clean-Voided Midstream Performed By: #### A DDONUAPLUS #### [address] RBC,Urine 3 [HPF] Normal 0-4 [facility] Comment on above: Order Comment: Name Collection Type:: Clean-Voided Midstream Performed By: #### A DDONUAPLUS #### [address] Specificy [place],Urine 1.028 Normal 1.001-1.030 [facility] Comment on above: Order Comment: Name Collection Type:: Clean-Voided Midstream Performed By: #### A DDONUAPLUS #### [address] Urobilinogen,Urine 2 mg/dL High Normal [facility] Comment on above: Order Comment: Name Collection Type:: Clean-Voided Midstream Performed By: #### A DDONUAPLUS #### [place] [address] [place] WBC,Urine 1 [HPF] Normal 0-4 [facility] Comment on above: Order Comment: Name Collection Type:: Clean-Voided Midstream Performed By: #### A DDONUAPLUS #### [place] [address] [place] Eosinophils Auto (Bld) [#/Vo l]Ordered By: Andrei Leyva on 08-15-2024 Eosinophils (Bld) [#/Vol] Automated eosinophil count 0.0-0.45 [facility] Eosinophils/100 WBC Auto (Bl d)Ordered By: Andrei Leyva on 08-15-2024 Eosinophils/100 WBC (Bld) Automated eosinophil % . [facility] Epithelial cells.squamous [# /area] in Urine sediment by Automated countOrdered By: Andrei Leyva on 08-15-2024 Epithelial cells.squamous Auto (Urine sed) [#/Area] Epithelial cells.squamous [#/area] in Urine sediment by Automated count [facility] Erythrocyte distribution wid th Auto (RBC) [Ratio]Ordered By: Andrei Leyva on 08-15-2024 Erythrocyte distribution width (RBC) [Ratio] Erythrocyte distribution width [Ratio] by Automated count 12.0-14.8 [facility] Erythrocytes [#/area] in Uri ne sediment by Automated countOrdered By: Andrei Leyva on 08-15-2024 RBC Auto (Urine sed) [#/Area] Erythrocytes [#/area] in Urine sediment by Automated count 0-4 [facility] Globulin Calc (S) [Mass/Vol] Ordered By: Andrei Leyva on 08-15-2024 Globulin (S) [Mass/Vol] Serum globulin measurement by calculation (mass/volume) [facility] Glucose [Mass/volume] in Ser um or PlasmaOrdered By: Andrei Leyva on 08-15-2024 Glucose [Mass/Vol] Glucose [Mass/volume ] in Serum or Plasma 70-100 [facility] Comment on above: ADA recommended refe rence rangeRandom Glucose Reference Range is dependent on time and content of last meal. Glucose of more than 200 mg/dL in a nonstressed, ambulatory subject supports the diagnosis of Diabetes Mellitus. Glucose [Mass/volume] in Uri ne by Test stripOrdered By: Andrei Leyva on 08-15-2024 Glucose Test strip (U) [Mass/Vol] Glucose [Mass/volume] in Urine by Test strip Normal [facility] Hematocrit Auto (Bld) [Volum e fraction]Ordered By: Andrei Leyva on 08-15-2024 Hematocrit (Bld) [Volume fraction] Hematocrit [Volume Fraction] of Blood by Automated count Low 38.8-50.0 [facility] Hemoglobin Test strip Ql (U) Ordered By: Andrei Leyva on 08-15-2024 Hemoglobin Ql (U) Hemoglobin [Presence ] in Urine by Test strip Negative [facility] Hemoglobin [Mass/volume] in BloodOrdered By: Andrei Leyva on 08-15-2024 Hemoglobin (Bld) [Mass/Vol] Hemoglobin [Mass/volume] in Blood 13.0-17.0 [facility] Hepatic Panelon 08-15-2024 Albumin [Mass/Vol] 4.4 g/dL Normal 3.5-5.7 [facility] Comment on above: Performed By: #### H EPATIC, BMP, LIPASE, CBC #### [address] Albumin/Globulin [Mass ratio] 1.8 {ratio} Normal [facility] Comment on above: Performed By: #### H EPATIC, BMP, LIPASE, CBC #### [address] ALP [Catalytic activity/Vol] 81 U/L Normal 34-104 [facility] Comment on above: Performed By: #### H EPATIC, BMP, LIPASE, CBC #### [address] ALT [Catalytic activity/Vol] 15 U/L Normal 7-52 [facility] Comment on above: Performed By: #### H EPATIC, BMP, LIPASE, CBC #### [address] AST [Catalytic activity/Vol] 17 U/L Normal 13-39 [facility] Comment on above: Performed By: #### H EPATIC, BMP, LIPASE, CBC #### [address] Bilirubin [Mass/Vol] 0.6 mg/dL Normal 0.3-1.0 [facility] Comment on above: Performed By: #### H EPATIC, BMP, LIPASE, CBC #### [address] Bilirubin,Indirect 0.5 mg/dL Normal [facility] Comment on above: Performed By: #### H EPATIC, BMP, LIPASE, CBC #### [address] Bilirubin.indirect [Mass/Vol] 0.10 mg/dL Normal 0.03-0.18 [facility] Comment on above: Performed By: #### H EPATIC, BMP, LIPASE, CBC #### [address] Globulin (S) [Mass/Vol] 2.4 g/dL Normal [facility] Comment on above: Performed By: #### H EPATIC, BMP, LIPASE, CBC #### [facility] [address] Protein [Mass/Vol] 6.8 g/dL Normal 6.4-8.9 [facility] Comment on above: Performed By: #### H EPATIC, BMP, LIPASE, CBC #### [facility] [address] Hyaline casts [#/area] in Ur ine sediment by Automated countOrdered By: Andrei Leyva on 08-15-2024 Hyaline casts Auto (Urine sed) [#/Area] Hyaline casts [#/area] in Urine sediment by Automated count 0-8 [facility] Ketones Test strip Ql (U)Ord ered By: Andrei Leyva on 08-15-2024 Ketones Ql (U) Ketones [Presence] i n Urine by Test strip Negative [facility] Leukocyte esterase [Presence ] in Urine by Test stripOrdered By: Andrei Leyva on 08-15-2024 Leukocyte esterase Test strip Ql (U) Leukocyte esterase [Presence] in Urine by Test strip Negative [facility] Leukocytes [#/area] in Urine sediment by Automated countOrdered By: Andrei Leyva on 08-15-2024 WBC Auto (Urine sed) [#/Area] Leukocytes [#/area] in Urine sediment by Automated count 0-4 [facility] Leukocytes [#/volume] correc harriet for nucleated erythrocytes in Blood by Automated counOrdered By: Andrei Leyva on 08-15-2024 WBC corrected for nucl RBC Auto (Bld) [#/Vol] Leukocytes [#/volume] corrected for nucleated erythrocytes in Blood by Automated coun Low 4.1-10.5 [facility] Lipaseon 08-15-2024 Lipase [Catalytic activity/Vol] 16.0 U/L Normal 11.0-82.0 [facility] Comment on above: Result Comment: PERF ORMED BY: [place] [id number] PATHOLOGIST [employer] KIMMY CARROLL M.D. Performed By: #### H EPATIC, BMP, LIPASE, CBC #### [facility] [address] Lipase [Enzymatic activity/v olume] in Serum or PlasmaOrdered By: Andrei Leyva on 08-15-2024 Lipase [Catalytic activity/Vol] Lipase [Enzymatic activity/volume] in Serum or Plasma 11.0-82.0 [facility] Lymphocytes Auto (Bld) [#/Vo l]Ordered By: Andrei Leyva on 08-15-2024 Lymphocytes (Bld) [#/Vol] Lymphocytes [#/volume] in Blood by Automated count 1.00-4.8 [facility] Lymphocytes/100 WBC Auto (Bl d)Ordered By: Andrei Leyva on 08-15-2024 Lymphocytes/100 WBC (Bld) Lymphocytes/100 leukocytes in Blood by Automated count . [facility] MCH Auto (RBC) [Entitic mass ]Ordered By: Andrei Leyva on 08-15-2024 MCH (RBC) [Entitic mass] MCH [Entitic ma ss] by Automated count 27.5-35.2 [facility] MCHC Auto (RBC) [Mass/Vol]Or dered By: Andrei Leyva on 08-15-2024 MCHC (RBC) [Mass/Vol] MCHC [Mass/volume] by Automated count 32.5-35.6 [facility] MCV Auto (RBC) [Entitic vol] Ordered By: Andrei Leyva on 08-15-2024 MCV (RBC) [Entitic vol] MCV [Entitic vol ume] by Automated count 83.5-101 [facility] Monocyte distribution width [Entitic volume] in Blood by AutomatedOrdered By: Andrei Leyva on 08-15-2024 Monocyte distribution width Auto (Bld) [Entitic vol] Monocyte distribution width [Entitic volume] in Blood by Automated High 0.00-20.00 [facility] Comment on above: For adults in ED, MD W > 20.0 may be associated with a higher risk of sepsis during the first 12 hrs of hospital admission Monocytes Auto (Bld) [#/Vol] Ordered By: Andrei Leyva on 08-15-2024 Monocytes (Bld) [#/Vol] Automated blood monocyte count 0.0-0.8 [facility] Monocytes/100 WBC Auto (Bld) Ordered By: Andrei Leyva on 08-15-2024 Monocytes/100 WBC (Bld) Automated monocyte % . [facility] Mucus [Presence] in Urine by AutomatedOrdered By: Andrei Leyva on 08-15-2024 Mucus Auto Ql (U) Mucus [Presence] in Urine by Automated [facility] Neutrophils Auto (Bld) [#/Vo l]Ordered By: Andrei Leyva on 08-15-2024 Neutrophils (Bld) [#/Vol] Neutrophils [#/volume] in Blood by Automated count Low 1.8-7.7 [facility] Neutrophils/100 WBC Auto (Bl d)Ordered By: Andrei Leyva on 08-15-2024 Neutrophils/100 WBC (Bld) Automated neutrophil % . [facility] Nitrite Test strip Ql (U)Ord ered By: Andrei Leyva on 08-15-2024 Nitrite Ql (U) Nitrite [Presence] i n Urine by Test strip Negative [facility] No Panel InformationOrdered By: Andrei Leyva on 08-15-2024 Estimated GFR (CKD-EPI) > 60.0 mL/Min [facility] Creatinine Clearance (Chem 137.62 [facility] Nucleated erythrocytes [Pres ence] in Blood by Automated countOrdered By: Andrei Leyva on 08-15-2024 Nucleated RBC Auto Ql (Bld) Nucleated erythrocytes [Presence] in Blood by Automated count 0-0.5 [facility] Platelet mean volume Auto (B ld) [Entitic vol]Ordered By: Andrei Leyva on 08-15-2024 Platelet mean volume (Bld) [Entitic vol] Platelet mean volume [Entitic volume] in Blood by Automated count 6.6-10.1 [facility] Platelets Auto (Bld) [#/Vol] Ordered By: Andrei Leyva on 08-15-2024 Platelets (Bld) [#/Vol] Platelets [#/vol ume] in Blood by Automated count 150-450 [facility] Potassium [Moles/volume] in Serum or PlasmaOrdered By: Andrei Leyva on 08-15-2024 Potassium [Moles/Vol] Potassium [Moles/volume] in Serum or Plasma 3.5-5.1 [facility] Protein Test strip (U) [Mass /Vol]Ordered By: Andrei Leyva on 08-15-2024 Protein (U) [Mass/Vol] Protein [Mass/vol ume] in Urine by Test strip High Negative [facility] Protein [Mass/volume] in Ser um or PlasmaOrdered By: Andrei Leyva on 08-15-2024 Protein [Mass/Vol] Protein [Mass/volume ] in Serum or Plasma 6.4-8.9 [facility] RBC Auto (Bld) [#/Vol]Ordere d By: Andrei Leyva on 08-15-2024 RBC (Bld) [#/Vol] Erythrocytes [#/volume] in Blood by Automated count 3.90-5.60 [facility] Serum or plasma albumin/glob ulin mass ratioOrdered By: Andrei Leyva 08-15-2024 Albumin/Globulin [Mass ratio] Serum or plasma albumin/globulin mass ratio [facility] Serum or plasma anion gap de terminationOrdered By: Andrei Leyva 08-15-2024 Anion gap [Moles/Vol] Serum or plasma an ion gap determination 6.0-15.0 [facility] Serum or plasma non-glucuron idated bilirubin measurement (mass/volume)Ordered By: Andrei Leyva 08-15-2024 Bilirubin.indirect [Mass/Vol] Serum or plasma non-glucuronidated bilirubin measurement (mass/volume) [facility] Sodium [Moles/volume] in Ser um or PlasmaOrdered By: Andrei Leyva 08-15-2024 Sodium [Moles/Vol] Sodium [Moles/volume ] in Serum or Plasma 136-145 [facility] Specific gravity Test strip (U) [Rel density]Ordered By: Andrei Leyva 08-15-2024 Specific gravity (U) [Rel density] Specific gravity of Urine by Test strip 1.001-1.030 [facility] Urea nitrogen [Mass/volume] in Serum or PlasmaOrdered By: Andrei Leyva 08-15-2024 Urea nitrogen [Mass/Vol] Urea nitrogen [Mass/volume] in Serum or Plasma 7- [facility] Urobilinogen Test strip (U) [Mass/Vol]Ordered By: Andrei Leyva on 08-15-2024 Urobilinogen (U) [Mass/Vol] Urobilinogen [Mass/volume] in Urine by Test strip High Normal [facility] WBC Auto (Bld) [#/Vol]Ordere d By: Andrei Leyva on 08-15-2024 WBC (Bld) [#/Vol] Leukocytes [#/volume ] in Blood by Automated count Low 4.1-10.5 [facility] pH Test strip (U)Ordered By: Andrei Leyva on 08-15-2024 pH (U) pH of Urine by Test strip 5.0-9.0 [facility] Alanine aminotransferase [En zymatic activity/volume] in Serum or PlasmaOrdered By: Karina Carrera on 05-26-2024 ALT [Catalytic activity/Vol] 25 U/L Normal 7-52 [facility] Comment on above: Order Comment: Reaso n for Exam Other fatigue Performed By: #### V [id number], ADRIA, FE and TIBC, CMP, B12, TSH3 wRFLX #### [facility] [address] [place] [address] [place] Albumin [Mass/volume] in Ser um or Plasma by Bromocresol green (BCG) dye binding methoOrdered By: Karina Carrera on 05-26-2024 Albumin BCG dye [Mass/Vol] 4.7 g/dL 3.5-5.7 [facility] Alkaline phosphatase [Enzyma tic activity/volume] in Serum or PlasmaOrdered By: Karina Carrera on 05-26-2024 ALP [Catalytic activity/Vol] 118 U/L High 34-104 [facility] Comment on above: Order Comment: Reaso n for Exam Other fatigue Performed By: #### V [id number], ADRIA, FE and TIBC, CMP, B12, TSH3 wRFLX #### [facility] [address] [place] [id number] [place] Aspartate aminotransferase [ Enzymatic activity/volume] in Serum or PlasmaOrdered By: Karina Carrera on 05-26-2024 AST [Catalytic activity/Vol] 26 U/L Normal 13-39 [facility] Comment on above: Order Comment: Reaso n for Exam Other fatigue Performed By: #### V [id number], ADRIA, FE and TIBC, CMP, B12, TSH3 wRFLX #### [address] Automated basophil %Ordered By: Karina Carrera on 05-26-2024 Basophils/100 WBC (Bld) 1.1 % Normal . [facility] Comment on above: Performed By: #### C BC #### [address] Automated basophil countOrde red By: Karina Carrera on 05-26-2024 Basophils (Bld) [#/Vol] 0.1 10*3/uL Normal 0.0-0.1 [facility] Comment on above: Result Comment: PERF ORMED BY: [place] [id number] PATHOLOGIST [employer] SHAYLEE MURILLO M.D. Performed By: #### C BC #### [address] Automated blood monocyte cou ntOrdered By: Karina Carrera on 05-26-2024 Monocytes (Bld) [#/Vol] 0.6 10*3/uL Normal 0.1-1.00 [facility] Comment on above: Performed By: #### C BC #### [address] Automated eosinophil %Ordere d By: Karina Carrera on 05-26-2024 Eosinophils/100 WBC (Bld) 4.9 % Normal . [facility] Comment on above: Performed By: #### C BC #### [address] Automated eosinophil countOr dered By: Karina Carrera on 05-26-2024 Eosinophils (Bld) [#/Vol] 0.3 10*3/uL Normal 0.0-0.7 [facility] Comment on above: Performed By: #### C BC #### [facility] [address] Automated monocyte %Ordered By: Karina Carrera on 05-26-2024 Monocytes/100 WBC (Bld) 11.3 % Normal . [facility] Comment on above: Performed By: #### C BC #### [facility] [address] Automated neutrophil %Ordere d By: Karina Carrera on 05-26-2024 Neutrophils/100 WBC (Bld) 51.9 % Normal . [facility] Comment on above: Performed By: #### C BC #### [address] Bilirubin.total [Mass/volume ] in Serum or PlasmaOrdered By: Karina Carrera on 05-26-2024 Bilirubin [Mass/Vol] 0.6 mg/dL Normal 0.3-1.0 [facility] Comment on above: Order Comment: Reaso n for Exam Other fatigue Performed By: #### V [id number], ADRIA, FE and TIBC, CMP, B12, TSH3 wRFLX #### [address] Calcium [Mass/volume] in Ser um or PlasmaOrdered By: Karina Carrera on 05-26-2024 Calcium [Mass/Vol] 9.6 mg/dL Normal 8.6-10.3 [facility] Comment on above: Order Comment: Reaso n for Exam Other fatigue Performed By: #### V [id number], ADRIA, FE and TIBC, CMP, B12, TSH3 wRFLX #### [place] [address] [place] Carbon dioxide, total [Moles /volume] in Serum or PlasmaOrdered By: Karina Carrera on 05-26-2024 CO2 [Moles/Vol] 30.4 mmol/L Normal 21.0-31.0 [facility] Comment on above: Order Comment: Reaso n for Exam Other fatigue Performed By: #### V [id number], ADRIA, FE and TIBC, CMP, B12, TSH3 wRFLX #### [facility] [address] Chloride [Moles/volume] in S antonia or PlasmaOrdered By: Karina Carrera on 05-26-2024 Chloride [Moles/Vol] 105 mmol/L Normal 98-107 [facility] Comment on above: Order Comment: Reaso n for Exam Other fatigue Performed By: #### V [id number], ADRIA, FE and TIBC, CMP, B12, TSH3 wRFLX #### [facility] [address] Complete Blood Count Auto Di ffon 05-26-2024 Mean Corpuscular HGB Conc 34.4 g/dL Normal 31.0-37.0 [facility] Comment on above: Performed By: #### C BC #### [address] NRBC% 0.2 /100{WBC} Normal 0-0.5 [facility] Comment on above: Performed By: #### C BC #### [address] Comprehensive Metabolic Pane ernie 05-26-2024 Albumin [Mass/Vol] 4.7 g/dL Normal 3.5-5.7 [facility] Comment on above: Order Comment: Reaso n for Exam Other fatigue Performed By: #### V [id number], ADRIA, FE and TIBC, CMP, B12, TSH3 wRFLX #### [place] [address] [place] GFR/1.73 sq M.predicted MDRD (S/P/Bld) [Vol rate/Area] mL/min/{1.73_m2} Normal [facility] Comment on above: Order Comment: Reaso n for Exam Other fatigue Performed By: #### V [id number], ADRIA, FE and TIBC, CMP, B12, TSH3 wRFLX #### [place] [address] [place] Creatinine [Mass/volume] in Serum or PlasmaOrdered By: Karina Carrera on 05-26-2024 Creatinine [Mass/Vol] 1.00 mg/dL Normal 0.70-1.30 [facility] Comment on above: Order Comment: Reaso n for Exam Other fatigue Performed By: #### V [id number], ADRIA, FE and TIBC, CMP, B12, TSH3 wRFLX #### [facility] [address] [place] [address] [place] Erythrocyte distribution wid th [Ratio] by Automated countOrdered By: Karina Carrera on 05-26-2024 Erythrocyte distribution width (RBC) [Ratio] 12.7 % Normal 12.0-14.8 [facility] Comment on above: Performed By: #### C BC #### [facility] [address] [place] [address] [place] Erythrocytes [#/volume] in B lood by Automated countOrdered By: Karina Carrera on 05-26-2024 RBC (Bld) [#/Vol] 4.55 10*6/uL Normal 4.50-5.30 [facility] Comment on above: Performed By: #### C BC #### [facility] [address] [place] [address] [place] Ferritin [Mass/volume] in Se rum or PlasmaOrdered By: Karina Carrera on 05-26-2024 Ferritin [Mass/Vol] 107.6 ng/mL Normal 23.9-336.2 [facility] Comment on above: Order Comment: Reaso n for Exam Other fatigue Performed By: #### V [id number], ADRIA, FE and TIBC, CMP, B12, TSH3 wRFLX ####[facility] [id number] [place] [id number] [place] Glucose [Mass/volume] in Ser um or PlasmaOrdered By: Karina Carrera on 05-26-2024 Glucose [Mass/Vol] 76 mg/dL Normal 70-100 [facility] Comment on above: ADA recommended refe rence rangeRandom Glucose Reference Range is dependent on time and content of last meal. Glucose of more than 200 mg/dL in a nonstressed, ambulatory subject supports the diagnosis of Diabetes Mellitus. Order Comment: Reaso n for Exam Other fatigue Result Comment: [place] Glucose Reference Range is dependent on time and content of last meal. Glucose of more than 200 mg/dL in a nonstressed, ambulatory subject supports the diagnosis of Diabetes Mellitus. ADA recommended reference range Performed By: #### V [id number], ADRIA, FE and TIBC, CMP, B12, TSH3 wRFLX #### [address] Hematocrit [Volume Fraction] of Blood by Automated countOrdered By: Karina Carrera on 05-26-2024 Hematocrit (Bld) [Volume fraction] 40.3 % Normal 37.0-49.0 [facility] Comment on above: Performed By: #### C BC #### [address] Hemoglobin [Mass/volume] in BloodOrdered By: Karina Carrera on 05-26-2024 Hemoglobin (Bld) [Mass/Vol] 13.9 g/dL Normal 13.0-16.0 [facility] Comment on above: Performed By: #### C BC #### [address] Iron [Mass/volume] in Serum or PlasmaOrdered By: Karina Carrera on 05-26-2024 Iron [Mass/Vol] 102 ug/dL Normal 50-212 [facility] Comment on above: Order Comment: Reaso n for Exam Other fatigue Performed By: #### V [id number], ADRIA, FE and TIBC, CMP, B12, TSH3 wRFLX ####[place] [id number] [facility] Iron and TIBC Profileon 100 % Iron Saturation 30.0 % Normal 20-50 [facility] Comment on above: Order Comment: Reaso n for Exam Other fatigue Performed By: #### V [id number], ADRIA, FE and TIBC, CMP, B12, TSH3 wRFLX ####[place] [id number] [facility] Total Iron Binding Capacity 340 ug/dL Normal 255-450 [facility] Comment on above: Order Comment: Reaso n for Exam Other fatigue Performed By: #### V [id number], ADRIA, FE and TIBC, CMP, B12, TSH3 wRFLX ####[facility] [id number] Iron binding capacity [Mass/ volume] in Serum or PlasmaOrdered By: Karina Carrera on 05-26-2024 Iron binding capacity [Mass/Vol] 340 ug/dL 255-450 [facility] Iron saturation [Mass Fracti on] in Serum or PlasmaOrdered By: Karina Carrera on 05-26-2024 Iron saturation [Mass fraction] 30.0 % 20-50 [facility] Leukocytes [#/volume] correc harriet for nucleated erythrocytes in Blood by Automated counOrdered By: Karina Carrera on 05-26-2024 WBC corrected for nucl RBC Auto (Bld) [#/Vol] 5.4 10*3/uL 4.5-13.5 [facility] Leukocytes [#/volume] in Blo od by Automated countOrdered By: Karina Carrera on 05-26-2024 WBC (Bld) [#/Vol] 5.4 10*3/uL Normal 4.5-13.5 [facility] Comment on above: Performed By: #### C BC #### [facility] [address] [place] [address] [place] Lymphocytes [#/volume] in Bl ood by Automated countOrdered By: Karina Carrera on 05-26-2024 Lymphocytes (Bld) [#/Vol] 1.7 10*3/uL Normal 1.20-4.8 [facility] Comment on above: Performed By: #### C BC #### [facility] [address] [place] [address] [place] Lymphocytes/100 leukocytes i n Blood by Automated countOrdered By: Karina Carrera on 05-26-2024 Lymphocytes/100 WBC (Bld) 30.8 % Normal . [facility] Comment on above: Performed By: #### C BC #### [address] MCH [Entitic mass] by Automa harriet countOrdered By: Karina Carrera on 05-26-2024 MCH (RBC) [Entitic mass] 30.5 pg Normal 25.0-35.0 [facility] Comment on above: Performed By: #### C BC #### [address] MCHC Auto (RBC) [Mass/Vol]Or dered By: Karina Carrera on 05-26-2024 MCHC (RBC) [Mass/Vol] 34.4 g/dL 31.0-37.0 [facility] MCV [Entitic volume] by Auto mated countOrdered By: Karina Carrera on 05-26-2024 MCV (RBC) [Entitic vol] 88.5 fL Normal 78-98 [facility] Comment on above: Performed By: #### C BC #### [address] Neutrophils [#/volume] in Bl ood by Automated countOrdered By: Karina Carrera on 05-26-2024 Neutrophils (Bld) [#/Vol] 2.8 10*3/uL Normal 1.2-7.7 [facility] Comment on above: Performed By: #### C BC #### [address] No Panel InformationOrdered By: Karina Carrera on 05-26-2024 Estimated GFR (CKD-EPI) > 60.0 mL/Min [facility] Creatinine Clearance (Chem N/A [facility] Nucleated erythrocytes [Pres ence] in Blood by Automated countOrdered By: Karina Carrera on 05-26-2024 Nucleated RBC Auto Ql (Bld) 0.2 /100{WBC} 0-0.5 [facility] Platelet mean volume [Entiti c volume] in Blood by Automated countOrdered By: Karina Carrera on 05-26-2024 Platelet mean volume (Bld) [Entitic vol] 8.1 fL Normal 6.6-10.1 [facility] Comment on above: Performed By: #### C BC #### [address] Platelets [#/volume] in Bloo d by Automated countOrdered By: Karina Carrera on 05-26-2024 Platelets (Bld) [#/Vol] 283 10*3/uL Normal 150-450 [facility] Comment on above: Performed By: #### C BC #### [address] Potassium [Moles/volume] in Serum or PlasmaOrdered By: Karina Carrera on 05-26-2024 Potassium [Moles/Vol] 4.1 mmol/L Normal 3.5-5.1 [facility] Comment on above: Order Comment: Reaso n for Exam Other fatigue Performed By: #### V [id number], ADRIA, FE and TIBC, CMP, B12, TSH3 wRFLX #### [address] Protein [Mass/volume] in Ser um or PlasmaOrdered By: Karina Carrera on 05-26-2024 Protein [Mass/Vol] 7.3 g/dL Normal 6.4-8.9 [facility] Comment on above: Order Comment: Reaso n for Exam Other fatigue Performed By: #### V [id number], ADRIA, FE and TIBC, CMP, B12, TSH3 wRFLX #### [address] Serum globulin measurement b y calculation (mass/volume)Ordered By: Karina Carrera on 05-26-2024 Globulin (S) [Mass/Vol] 2.6 g/dL Normal [facility] Comment on above: Order Comment: Reaso n for Exam Other fatigue Performed By: #### V [id number], ADRIA, FE and TIBC, CMP, B12, TSH3 wRFLX #### [address] Serum or plasma albumin/glob ulin mass ratioOrdered By: Karina Carrera on 05-26-2024 Albumin/Globulin [Mass ratio] 1.8 {ratio} Normal [facility] Comment on above: Order Comment: Reaso n for Exam Other fatigue Performed By: #### V [id number], ADRIA, FE and TIBC, CMP, B12, TSH3 wRFLX #### [facility] [address] Serum or plasma anion gap de terminationOrdered By: Karina Carrera on 05-26-2024 Anion gap [Moles/Vol] 9.7 mmol/L Normal 6.0-15.0 [facility] Comment on above: Order Comment: Reaso n for Exam Other fatigue Performed By: #### V [id number], ADRIA, FE and TIBC, CMP, B12, TSH3 wRFLX #### [facility] [address] Sodium [Moles/volume] in Ser um or PlasmaOrdered By: Karina Carrera on 05-26-2024 Sodium [Moles/Vol] 141 mmol/L Normal 136-145 [facility] Comment on above: Order Comment: Reaso n for Exam Other fatigue Performed By: #### V [id number], ADRIA, FE and TIBC, CMP, B12, TSH3 wRFLX #### [facility] [address] [place] [address] Thyroid Stim Hormone w/Rflxo n 05-26-2024 Thyroid Stim Hormone w/Rflx 1.91 u[iU]/mL Normal 0.45-5.33 [facility] Comment on above: Order Comment: Reaso n for Exam Other fatigue Performed By: #### V [id number], ADRIA, FE and TIBC, CMP, B12, TSH3 wRFLX ####[facility] [id number] Thyrotropin [Units/volume] i n Serum or PlasmaOrdered By: Karina Carrera on 05-26-2024 TSH Qn 1.91 m[IU]/L 0.45-5.33 [facility] Transferrin [Mass/volume] in Serum or PlasmaOrdered By: Karina Carrera on 05-26-2024 Transferrin [Mass/Vol] 243 mg/dL Normal 203-362 [facility] Comment on above: Order Comment: Reaso n for Exam Other fatigue Performed By: #### V [id number], ADRIA, FE and TIBC, CMP, B12, TSH3 wRFLX ####[facility] [id number] [place] [id number] [facility] Urea nitrogen [Mass/volume] in Serum or PlasmaOrdered By: Karina Carrera on 05-26-2024 Urea nitrogen [Mass/Vol] 14 mg/dL Normal 7-25 [facility] Comment on above: Order Comment: Reaso n for Exam Other fatigue Performed By: #### V [id number], ADRIA, FE and TIBC, CMP, B12, TSH3 wRFLX #### [facility] [address] Vitamin B12 ser/plasOrdered By: Karina Carrera on 05-26-2024 Cobalamin (Vitamin B12) [Mass/Vol] 519 pg/mL Normal 180-914 [facility] Comment on above: Order Comment: Reaso n for Exam Other fatigue Performed By: #### V [id number], ADRIA, FE and TIBC, CMP, B12, TSH3 wRFLX ####[facility] [id number] [place] [address] [facility] Vitamin D 25 Hydroxy Totalon 05-26-2024 Vitamin D 25 Hydroxy Total 28.3 ng/mL Low 30-100 [facility] Comment on above: Order Comment: Reaso n for Exam Other fatigue Result Comment: BHARGAVI MIN D STATUS 25(OH)VITAMIN D RANGE (ng/mL) Deficient <20 Insufficient 20 to <30 Sufficient 30 to 100 Reference: Matteo MF,Joe ACHARYA, Tina PEREZ, et al. Evaluation,treatment, and prevention of vitamin D deficiency; an Endocrine Society clinical practice guideline. JCEM. 2010; 96(7):1911-30. PERFORMED BY: [facility] [address] [place] [address] PATHOLOGIST WARDSPERSON SHAYLEE MURILLO M.D. Performed By: #### V [id number], ADRIA, FE and TIBC, CMP, B12, TSH3 wRFLX ####[facility] [id number] [place] [id number] [facility] Vitamin D+Metabolites [Mass/ volume] in Serum or PlasmaOrdered By: Karina Carrera on 05-26-2024 Vitamin D+Metabolites [Mass/Vol] 28.3 ng/mL Low 30-100 [facility] Comment on above: VITAMIN D STATUS 25( OH)VITAMIN D RANGE (ng/mL) Deficient <20 Insufficient 20 to <30Sufficient 30 to 100Reference: Matteo MF,Joe ACHARYA, Tina PEREZ, et al. Evaluation,treatment, and prevention of vitamin D deficiency; an Endocrine Society clinical practice guideline. JCEM. 2010; 96(7):1911-30. XR elbow RT min 3V*on 2023 XR elbow RT min 3V* [facility] [place] [address] [place] [id number] XRay Report Signed Patient: Edgar Nuñez MR#: [id number] : 2005 Acct:[id number] Age/Sex: 18 / M ADM Date: 04/17/24 Loc: ER Room: Type: [facility] ER Attending Dr: Copies to: ELAINE Stacy Ordering Provider: ELAINE Stacy Date of Service: 04/17/24 XR/XR elbow RT min 3V*: Extremity Injury, Upper XR elbow RT min 3V* 04/17/2024 6:25 PM SIGNS AND SYMPTOMS: Pain in the anterior aspect of the right elbow PROTOCOL: Frontal, lateral, and oblique radiographs of the right elbow COMPARISON: None FINDINGS: The bones are in anatomic alignment. The joint spaces are preserved. No joint effusion. No fracture. No significant soft tissue swelling. XR/XR elbow RT min 3V* IMPRESSION: No acute bony injury. Impression dictated by: Corwin Damico M.D.04/17/2024 6:57 PM Dictation Location: [facility]-13 Transcribed By: ESSENCE 04/17/241856 Dictated By: Corwin Damico II, MD 04/17/241855 Signed By: 04/17/241856 Normal [facility] US scrotumon 02-07-2024 US scrotum [facility] Main [employer] [address] [place] [address] Ultrasound Report Signed Patient: Edgar Nuñez MR#: [id number] : 2005 Acct:[id number] Age/Sex: 18 / M ADM Date: 02/07/24 Loc: ER Room: Type: [facility] ER Attending Dr: Ordering Provider: [...] sonographic evidence of testicular ischemia. US/US scrotum IMPRESSION: 1. The testicles are normal in size and echogenicity. No intratesticular lesions. 2. No sonographic evidence of testicular ischemia. 3. A small amount of fluid is noted surrounding the testicles bilaterally. Impression dictated by: Corwin Damico M.D.02/07/2024 3:02 PM Dictation Location: [facility]-13 Tech: Carolann Larson Transcribed By: ESSENCE 02/07/24 1502 Dictated By: Corwin Damico II, MD 02/07/24 1459 Signed By: 02/07/24 1502 Normal [facility] XR lumbar spine min 4V*on XR lumbar spine min 4V* [facility] [place] [address] XRay Report Signed Patient: Edgar Nuñez MR#: [id number] : 2005 Acct:[id number] Age/Sex: 18 / M ADM Date: 11/29/23 Loc: XD Room: Type: [facility] Attending Dr: Karina Carrera APRN, ADJUSTMENT EXAMINER-C Copies to: Karina Carrera APRN, CNP Ordering Provider: Karina Carrera APRN, CNP Date of Service: 11/29/23 XR/XR lumbar spine min 4V*: M51.26 - Other intervertebral disc displacement, lumbar r... LUMBAR SPINE - 6 views CLINICAL HISTORY: Low back pain for 4 years. COMPARISON: None FINDINGS: Vertebral body heights appear maintained. Facet joints appear unremarkable. Mild disc space narrowing L4-L5 and L5-S1. SI joints appear unremarkable. XR/XR lumbar spine min 4V* IMPRESSION: MILD DISC SPACE NARROWING L4-S1. Impression dictated by: Boone Wong Jr., D.O.11/29/2023 3:31 PM Dictation Location: [place] [address] Transcribed By: ESSENCE 11/29/23 1531 Dictated By: Boone Wong Jr, DO 11/29/23 1530 Signed By: 11/29/23 1531 Normal [facility] Basophils Auto (Bld) [#/Vol] on 10-03-2023 Basophils (Bld) [#/Vol] 0.1 10 3/uL 0.0-0.1 [facility] Basophils/100 WBC Auto (Bld) on 10-03-2023 Basophils/100 WBC (Bld) 1.3 % 0.2-2.0 [facility] Eosinophils/100 WBC Auto (Bl d)on 10-03-2023 Eosinophils/100 WBC (Bld) 4.1 % 0.9-7.0 [facility] Erythrocyte distribution wid th Auto (RBC) [Ratio]on 10-03-2023 Erythrocyte distribution width (RBC) [Ratio] 12.2 % 11.0-15.0 [facility] Estimated glomerular filtrat ion rate (GFR) non- Americanon 10-03-2023 GFR/1.73 sq M.predicted among non-blacks MDRD (S/P/Bld) [Vol rate/Area] mL/min/{1.73_m2} >=60 [facility] Globulin Calc (S) [Mass/Vol] on 10-03-2023 Globulin (S) [Mass/Vol] 3.5 g/dL F [facility] Hematocrit Auto (Bld) [Volum e fraction]on 10-03-2023 Hematocrit (Bld) [Volume fraction] 43.0 % 42.0-54.0 [facility] Hemoglobin [Mass/volume] in Bloodon 10-03-2023 Hemoglobin (Bld) [Mass/Vol] 14.3 g/dL 14.0-18.0 [facility] Iron binding capacity [Mass/ volume] in Serum or Plasmaon 10-03-2023 Iron binding capacity [Mass/Vol] 332.0 ug/dL 250.0-450.0 [facility] Iron saturation [Mass Fracti on] in Serum or Plasmaon 10-03-2023 Iron saturation [Mass fraction] 21.7 % [facility] Laboratory - Chemistry and C hemistry - challengeon 10-03-2023 Albumin [Mass/Vol] 3.9 g/dL 3.4-5.0 [facility] ALP [Catalytic activity/Vol] 126 U/L 46-116 [facility] ALT [Catalytic activity/Vol] 45 U/L 16-63 [facility] AST [Catalytic activity/Vol] 25 U/L 15-37 [facility] Bilirubin [Mass/Vol] 0.2 mg/dL 0.2-1.0 [facility] Calcium [Mass/Vol] 9.0 mg/dL 8.5-10.1 [facility] Chloride [Moles/Vol] 105 mmol/L 98-107 [facility] CO2 [Moles/Vol] 29.8 mmol/L 21.0-32.0 [facility] Creatinine [Mass/Vol] 0.99 mg/dL 0.70-1.30 [facility] GFR/1.73 sq M.predicted MDRD (S/P/Bld) [Vol rate/Area] mL/min/{1.73_m2} >=60 [facility] Glucose [Mass/Vol] 93 mg/dL 74-106 [facility] Iron [Mass/Vol] 72.0 ug/dL 65.0-175.0 [facility] Potassium [Moles/Vol] 4.1 mmol/L 3.5-5.1 [facility] Protein [Mass/Vol] 7.4 g/dL 6.4-8.2 [facility] Sodium [Moles/Vol] 142 mmol/L 136-145 [facility] TSH Qn 3.004 m[IU]/L 0.516-4.130 [facility] Urea nitrogen [Mass/Vol] 11.0 mg/dL 6.4-19.3 [facility] Urea nitrogen/Creatinine [Mass ratio] 11.1 mg/mg [facility] Laboratory - Hematology and Cell countson 10-03-2023 Immature granulocytes/100 WBC (Bld) 0.4 % 0.0-0.5 [facility] Leukocytes [#/volume] correc harriet for nucleated erythrocytes in Blood by Automated counon 10-03-2023 WBC corrected for nucl RBC Auto (Bld) [#/Vol] 4.7 10 3/uL 4.0-11.0 [facility] Lymphocytes Auto (Bld) [#/Vo l]on 10-03-2023 Lymphocytes (Bld) [#/Vol] 1.5 10 3/uL 1.2-3.8 [facility] Lymphocytes/100 WBC Auto (Bl d)on 10-03-2023 Lymphocytes/100 WBC (Bld) 32.4 % 20.5-60.0 [facility] MCH Auto (RBC) [Entitic mass ]on 10-03-2023 MCH (RBC) [Entitic mass] 29.7 pg 25.9-34.0 [facility] MCHC Auto (RBC) [Mass/Vol]on 10-03-2023 MCHC (RBC) [Mass/Vol] 33.3 g/dL 29.9-35.2 [facility] MCV Auto (RBC) [Entitic vol] on 10-03-2023 MCV (RBC) [Entitic vol] 89.4 fL 80.0-94.0 [facility] Monocytes Auto (Bld) [#/Vol] on 10-03-2023 Monocytes (Bld) [#/Vol] 0.5 10 3/uL 0.3-0.8 [facility] Monocytes/100 WBC Auto (Bld) on 10-03-2023 Monocytes/100 WBC (Bld) 11.6 % 1.7-12.0 [facility] Neutrophils Auto (Bld) [#/Vo l]on 10-03-2023 Neutrophils (Bld) [#/Vol] 2.3 10 3/uL 1.4-6.5 [facility] Neutrophils/100 WBC Auto (Bl d)on 10-03-2023 Neutrophils/100 WBC (Bld) 50.2 % 43.0-75.0 [facility] No Panel Informationon 10-03 25-Hydroxy Vitamin D Total 25.8 ng/mL [facility] Comment on above: <20 ng/mL Vit D defi cient20-<30 ng/mL Vit D [id number] ng/mL Vit D sufficient>100 ng/mL Potential Toxicity Eosinophils # (Auto) 0.2 10 3/uL 0.0-0.7 [facility] Immature Granulocyte # (Auto) 0.02 10 3/uL 0.00-0.03 [facility] Platelet mean volume Auto (B ld) [Entitic vol]on 10-03-2023 Platelet mean volume (Bld) [Entitic vol] 9.3 fL 9.5-13.5 [facility] Platelets Auto (Bld) [#/Vol] on 10-03-2023 Platelets (Bld) [#/Vol] 252 10 3/uL 150-450 [facility] RBC Auto (Bld) [#/Vol]on RBC (Bld) [#/Vol] 4.81 10 6/uL 4.70-6.10 [facility] Serum or plasma albumin/glob ulin mass ratioon 10-03-2023 Albumin/Globulin [Mass ratio] 1.1 {ratio} [facility] Serum or plasma anion gap de terminationon 10-03-2023 Anion gap [Moles/Vol] 11.3 mmol/L [facility] Ambulatory Visit Summaryon 0 12-26-2022 Ambulatory Visit Summary EDGAR NUÑEZ :2005 Visit Date:12/26/2022 Ambulatory Visit Instructions Your Diagnosis Sore throat BMI (body mass index), pediatric, 85% to less than 95% for age Your Care Team Attending Physician - ELAINE Staley APRN, Silvia Moscoso Primary Care Physician - JAYDA SEBASTIAN MD Discharge Vitals Temperature (Oral) 36.7 ?C Heart Rate (Peripheral) 62 Height 194 cm Height 76 in Weight 97.9 kg Weight 215.38 lb BMI 26.01 What to do next You Need to Schedule the Following Appointments Follow Up with CHIOMA SULLIVAN, JAYDA Rueda, [facility] When: Allergies No Known Allergies Problems Historical - Any problem that you are no longer receiving treatment for. ear infection [employer] Pharyngitis Pharyngitis is inflammation of the throat (pharynx). It is a very common cause of sore throat. Pharyngitis can be caused by a bacteria, but it is usually caused by a virus. Most cases of pharyngitis get better on their own without treatment. What are the causes? This condition may be caused by: ? Infection by viruses (viral). Viral pharyngitis spreads easily from person to person (is contagious) through coughing, sneezing, and sharing of personal items or utensils such as cups, forks, spoons, and toothbrushes. ? Infection by bacteria (bacterial). Bacterial pharyngitis may be spread by touching the nose or face after coming in contact with the bacteria, or through close contact, such as kissing. ? Allergies. Allergies can cause buildup of mucus in the throat (post-nasal drip), leading to inflammation and irritation. Allergies can also cause blocked nasal passages, forcing breathing through the mouth, which dries and irritates the throat. What increases the risk? You are more likely to develop this condition if: ? You are 5?24 years old. ? You are exposed to crowded environments such as daycare, school, or dormitory living. ? You live in a cold climate. ? You have a weakened disease-fighting (immune) system. What are the signs or symptoms? Symptoms of this condition vary by the cause. Common symptoms of this condition include: ? Sore throat. ? Fatigue. ? Low-grade fever. ? Stuffy nose (nasal congestion) and cough. ? Headache. Other symptoms may include: ? Glands in the neck (lymph nodes) that are swollen. ? Skin rashes. ? Plaque-like film on the throat or tonsils. This is often a symptom of bacterial pharyngitis. ? Vomiting. ? Red, itchy eyes (conjunctivitis). ? Loss of appetite. ? Joint pain and muscle aches. ? Enlarged tonsils. How is this diagnosed? This condition may be diagnosed based on your medical history and a physical exam. Your health care provider will ask you questions about your illness and your symptoms. A swab of your throat may be done to check for bacteria (rapid strep test). Other lab tests may also be done, depending on the suspected cause, but these are rare. How is this treated? Many times, treatment is not needed for this condition. Pharyngitis usually gets better in 3?4 days without treatment. Bacterial pharyngitis may be treated with antibiotic medicines. Follow these instructions at home: Medicines ? Take oeun-nqm-ffhngig and prescription medicines only as told by your health care provider. ? If you were prescribed an antibiotic medicine, take it as told by your health care provider. Do not stop taking the antibiotic even if you start to feel better. ? Use throat sprays to soothe your throat as told by your health care provider. ? Children can get pharyngitis. Do not give your child aspirin because of the association with Colton's syndrome. Managing pain To help with pain, try: ? Sipping warm liquids, such as broth, herbal tea, or warm water. ? Eating or drinking cold or frozen liquids, such as frozen ice pops. ? Gargling with a mixture of salt and water 3?4 times a day or as needed. To make salt water, completely dissolve ??1 tsp (3?6 g) of salt in 1 cup (237 mL) of warm water. ? Sucking on hard candy or throat lozenges. ? Putting a cool-mist humidifier in your bedroom at night to moisten the air. ? Sitting in the bathroom with the door closed for 5?10 minutes while you run hot water in the shower. General instructions ? Do not use any products that contain nicotine or tobacco. These products include cigarettes, chewing tobacco, and vaping devices, such as e-cigarettes. If you need help quitting, ask your health care provider. ? Rest as told by your health care provider. ? Drink enough fluid to keep your urine pale yellow. How is this prevented? To help prevent becoming infected or spreading infection: ? Wash your hands often with soap and water for at least 20 seconds. If soap and water are not available, use hand photographer apprentice. ? Do not touch your eyes, nose, or mouth with un (more content not included)... Normal [facility] Ambulatory Visit Summary EDGAR NUÑEZ :2005 Visit Date:12/26/2022 Ambulatory Visit Instructions Your Diagnosis Sore throat BMI (body mass index), pediatric, 85% to less than 95% for age Your Care Team Attending Physician - ELAINE Staley APRN, Silvia X Primary Care Physician - JAYDA SEBASTIAN MD Discharge Vitals Temperature (Oral) 36.7 ?C Heart Rate (Peripheral) 62 Height 194 cm Height 76 in Weight 97.9 kg Weight 215.38 lb BMI 26.01 What to do next You Need to Schedule the Following Appointments Follow Up with JAYDA SEBASTIAN MD, [facility], [facility] When: Allergies No Known Allergies Problems Historical - Any problem that you are no longer receiving treatment for. ear infection [employer] Pharyngitis Pharyngitis is inflammation of the throat (pharynx). It is a very common cause of sore throat. Pharyngitis can be caused by a bacteria, but it is usually caused by a virus. Most cases of pharyngitis get better on their own without treatment. What are the causes? This condition may be caused by: ? Infection by viruses (viral). Viral pharyngitis spreads easily from person to person (is contagious) through coughing, sneezing, and sharing of personal items or utensils such as cups, forks, spoons, and toothbrushes. ? Infection by bacteria (bacterial). Bacterial pharyngitis may be spread by touching the nose or face after coming in contact with the bacteria, or through close contact, such as kissing. ? Allergies. Allergies can cause buildup of mucus in the throat (post-nasal drip), leading to inflammation and irritation. Allergies can also cause blocked nasal passages, forcing breathing through the mouth, which dries and irritates the throat. What increases the risk? You are more likely to develop this condition if: ? You are 5?24 years old. ? You are exposed to crowded environments such as daycare, school, or dormitory living. ? You live in a cold climate. ? You have a weakened disease-fighting (immune) system. What are the signs or symptoms? Symptoms of this condition vary by the cause. Common symptoms of this condition include: ? Sore throat. ? Fatigue. ? Low-grade fever. ? Stuffy nose (nasal congestion) and cough. ? Headache. Other symptoms may include: ? Glands in the neck (lymph nodes) that are swollen. ? Skin rashes. ? Plaque-like film on the throat or tonsils. This is often a symptom of bacterial pharyngitis. ? Vomiting. ? Red, itchy eyes (conjunctivitis). ? Loss of appetite. ? Joint pain and muscle aches. ? Enlarged tonsils. How is this diagnosed? This condition may be diagnosed based on your medical history and a physical exam. Your health care provider will ask you questions about your illness and your symptoms. A swab of your throat may be done to check for bacteria (rapid strep test). Other lab tests may also be done, depending on the suspected cause, but these are rare. How is this treated? Many times, treatment is not needed for this condition. Pharyngitis usually gets better in 3?4 days without treatment. Bacterial pharyngitis may be treated with antibiotic medicines. Follow these instructions at home: Medicines ? Take qbmp-nws-vddodeg and prescription medicines only as told by your health care provider. ? If you were prescribed an antibiotic medicine, take it as told by your health care provider. Do not stop taking the antibiotic even if you start to feel better. ? Use throat sprays to soothe your throat as told by your health care provider. ? Children can get pharyngitis. Do not give your child aspirin because of the association with Colton's syndrome. Managing pain To help with pain, try: ? Sipping warm liquids, such as broth, herbal tea, or warm water. ? Eating or drinking cold or frozen liquids, such as frozen ice pops. ? Gargling with a mixture of salt and water 3?4 times a day or as needed. To make salt water, completely dissolve ??1 tsp (3?6 g) of salt in 1 cup (237 mL) of warm water. ? Sucking on hard candy or throat lozenges. ? Putting a cool-mist humidifier in your bedroom at night to moisten the air. ? Sitting in the bathroom with the door closed for 5?10 minutes while you run hot water in the shower. General instructions ? Do not use any products that contain nicotine or tobacco. These products include cigarettes, chewing tobacco, and vaping devices, such as e-cigarettes. If you need help quitting, ask your health care provider. ? Rest as told by your health care provider. ? Drink enough fluid to keep your urine pale yellow. How is this prevented? To help prevent becoming infected or spreading infection: ? Wash your hands often with soap and water for at least 20 seconds. If soap and water are not available, use hand photographer apprentice. ? Do not touch your eyes, nose, or mouth with un (more content not included)... Normal [facility] Family Medicine Office/Clini c Noteon 12-26-2022 Family Medicine Office/Clinic Note Chief Complaint EST sore throat HPI Staff 17 year old male presents sore throat patient present for sore throat, onset sunday, x 4 days sinus congestion- yes, and rhinorrhea swollen nodes- red/ white spots- cough- minimal, dry ear pain - pressure bilaterally fever/chills-no body aches- yes nausea/ vomiting-nausea decreased appetite, pushing fluids normal urine output allergies- medication taken- none History of Present Illness I have reviewed and verified the staff HPI to be accurate for this encounter. For this visit the chief historian for this dependent patient is mom. Review of Systems PHQ Score Initial Depression Screen Score: 0 Physical Exam Vitals & Measurements T: 36.7 ?C(Oral) HR: 62(Peripheral) SpO2: 98% HT: 76 in HT: 194 cm WT: 97.9 kg WT: 215.38 lb BMI: 26.01 General: Well nourished, appropriate teenage male in no acute distress. Ears: No deformity or lesion of external ear. Canals and TM appear normal bilaterally. TM?s intact, not inflamed, with normal light reflex. Hearing grossly normal to conversational speech Nose: mild nasal mucosa inflammation and edema , mild discomfort on palpation over the maxillary sinuses Mouth: Mucous membranes moist. Normal oropharynx, and posterior pharynx without lesions or exudates. Tongue normal. Uvula midline, tonsils 2+. Mild erythema of the posterior pharynx. Neck: Palpable anterior cervical nodes bilaterally Lungs: Normal respiratory effort and clear to auscultation Cardio: regular rate and rhythm, no murmur Mental Status: alert and oriented x3, normal mood and affect given age Assessment/Plan 1. Sore throat (J02.9: Acute pharyngitis, unspecified) Rapid strep -. Given exam will send strep cx to confirm- will call with results in 3-5 days. If any GAS growth, will rx appropriate antibiotic. Discussed otherwise consistent with viral illness, typical duration 7-14 days. Fluids/rest, PRN tylenol/ibuprofen for pain and/or fever. May use salt water gargles and otc lozenges for pain. Fu with PCP if cx negative and not improving over next 7-10 days. Seek medical attention immediately for any increased difficulty swallowing, opening mouth, or difficulty managing oral secretions. Patient and parent verbalized understanding of tx plan. Ordered: Group A Strep by PCR Rapid Strep POC 00985 2. BMI (body mass index), pediatric, 85% to less than 95% for age (Z68.53: Body mass index [BMI] pediatric, 85th percentile to less than 95th percentile for age) It is very important for a growing child to maintain a healthy BMI. Some suggested methods you can practice as a whole family to live a more healthy lifestyle include making healthy food easily accessible, watching portion sizes, limit treats and snacks, limit the juice and cut out sugary drinks, limit screen time and get active for at least 60 minutes daily. Follow-up With When Contact Information CHIOMA SULLIVAN, JAYDA Rueda, [facility], MED Additional Instructions: Patient Education Pharyngitis Upper Respiratory Infection, Adult Budget-Friendly Healthy Eating BMI for Children and Teens Problem List/Past Medical History Ongoing No qualifying data Historical ear infection Medications No active medications Allergies No Known Allergies Social History Alcohol Substance Abuse Tobacco Never (less than 100 in lifetime) Tobacco Use:. Never Smokeless Tobacco Use:., 12/26/2022 Immunizations Vaccine Date Status diphtheria/pertussis, acel/tetanus adult 03/06/2019 Recorded meningococcal conjugate vaccine 03/06/2019 Recorded varicella virus vaccine 03/07/2011 Recorded poliovirus vaccine, inactivated 03/07/2011 Recorded measles/mumps/rubella virus vaccine 03/07/2011 Recorded hepatitis A pediatric vaccine 03/07/2011 Recorded DTaP, unspecified formulation 03/07/2011 Recorded measles/mumps/rubella/ varicella vaccine 11/14/2006 Recorded hepatitis A pediatric vaccine 11/14/2006 Recorded Hib, unspecified formulation 11/14/2006 Recorded DTaP, unspecified formulation 11/14/2006 Recorded Hib, unspecified formulation 01/24/2006 Recorded diphth/hepB/pertussis, acel/polio/tetanus 01/24/2006 Recorded poliovirus vaccine, inactivated 2005 Recorded hepatitis B pediatric vaccine 2005 Recorded Hib, unspecified formulation 2005 Recorded DTaP, unspecified formulation 2005 Recorded Hib, unspecified formulation 2005 Recorded diphth/hepB/pertussis, acel/polio/tetanus 2005 Recorded Lab Results Ambulatory Point of Care Results Rapid Strep POC Result: Negative (12/26/22 11:47:00) Normal [facility] Comment on above: Result Comment: Elec tronically Signed By: ELAINE Staley APRN, Silvia Moscoso\.br\Date and Time Signed: 12/26/22 11:55 EDT Grp A Strp PCRon 12-26-2022 Group A Strep Negative Normal [facility] Comment on above: Result Comment: Test ing performed using DNA amplification. Performed By: #### 1 [id number] ####[facility] [address] [place] [address] Grp A Strp Intrl Ctrl Pass Normal [facility] her [facility] Comment on above: Performed By: #### [id number] ####[facility] [address] [place] [address] Patient Educationon 12-27-19 Patient Education Infectious Disease Pharyngitis Pharyngitis is inflammation of the throat (pharynx). It is a very common cause of sore throat. Pharyngitis can be caused by a bacteria, but it is usually caused by a virus. Most cases of pharyngitis get better on their own without treatment. What are the causes? This condition may be caused by: ? Infection by viruses (viral). Viral pharyngitis spreads easily from person to person (is contagious) through coughing, sneezing, and sharing of personal items or utensils such as cups, forks, spoons, and toothbrushes. ? Infection by bacteria (bacterial). Bacterial pharyngitis may be spread by touching the nose or face after coming in contact with the bacteria, or through close contact, such as kissing. ? Allergies. Allergies can cause buildup of mucus in the throat (post-nasal drip), leading to inflammation and irritation. Allergies can also cause blocked nasal passages, forcing breathing through the mouth, which dries and irritates the throat. What increases the risk? You are more likely to develop this condition if: ? You are 5?24 years old. ? You are exposed to crowded environments such as daycare, school, or dormitory living. ? You live in a cold climate. ? You have a weakened disease-fighting (immune) system. What are the signs or symptoms? Symptoms of this condition vary by the cause. Common symptoms of this condition include: ? Sore throat. ? Fatigue. ? Low-grade fever. ? Stuffy nose (nasal congestion) and cough. ? Headache. Other symptoms may include: ? Glands in the neck (lymph nodes) that are swollen. ? Skin rashes. ? Plaque-like film on the throat or tonsils. This is often a symptom of bacterial pharyngitis. ? Vomiting. ? Red, itchy eyes (conjunctivitis). ? Loss of appetite. ? Joint pain and muscle aches. ? Enlarged tonsils. How is this diagnosed? This condition may be diagnosed based on your medical history and a physical exam. Your health care provider will ask you questions about your illness and your symptoms. A swab of your throat may be done to check for bacteria (rapid strep test). Other lab tests may also be done, depending on the suspected cause, but these are rare. How is this treated? Many times, treatment is not needed for this condition. Pharyngitis usually gets better in 3?4 days without treatment. Bacterial pharyngitis may be treated with antibiotic medicines. Follow these instructions at home: Medicines ? Take wvuz-ked-hkjesjk and prescription medicines only as told by your health care provider. ? If you were prescribed an antibiotic medicine, take it as told by your health care provider. Do not stop taking the antibiotic even if you start to feel better. ? Use throat sprays to soothe your throat as told by your health care provider. ? Children can get pharyngitis. Do not give your child aspirin because of the association with Colton's syndrome. Managing pain To help with pain, try: ? Sipping warm liquids, such as broth, herbal tea, or warm water. ? Eating or drinking cold or frozen liquids, such as frozen ice pops. ? Gargling with a mixture of salt and water 3?4 times a day or as needed. To make salt water, completely dissolve ??1 tsp (3?6 g) of salt in 1 cup (237 mL) of warm water. ? Sucking on hard candy or throat lozenges. ? Putting a cool-mist humidifier in your bedroom at night to moisten the air. ? Sitting in the bathroom with the door closed for 5?10 minutes while you run hot water in the shower. General instructions ? Do not use any products that contain nicotine or tobacco. These products include cigarettes, chewing tobacco, and vaping devices, such as e-cigarettes. If you need help quitting, ask your health care provider. ? Rest as told by your health care provider. ? Drink enough fluid to keep your urine pale yellow. How is this prevented? To help prevent becoming infected or spreading infection: ? Wash your hands often with soap and water for at least 20 seconds. If soap and water are not available, use hand photographer apprentice. ? Do not touch your eyes, nose, or mouth with unwashed hands, and wash hands after touching these areas. ? Do not share cups or eating utensils. ? Avoid close contact with people who are sick. Contact a health care provider if: ? You have large, tender lumps in your neck. ? You have a rash. ? You cough up green, yellow-brown, or bloody mucus. Get help right away if: ? Your neck becomes stiff. ? You drool or are unable to swallow liquids. ? You cannot drink or take medicines without vomiting. ? You have severe pain that does not go away, even after you take medicine. ? You have trouble breathing, and it is not caused by a stuffy nose. ? You have new pain and swelling in your joints such as the knees, ankles, wrists, or elbows. These symptoms may represent a serious problem that is a (more content not included)... Normal [facility] Patient Letter FTon 2022 [place] [facility] [place] EDGAR NUÑEZ [address] [place] [id number] Please excuse EDGAR NUÑEZ from school . Date and/or Time of Absence: From: 12/25/22 To: 12/27/22 Restrictions: None Comments: Please excuse due to an acute illness. Provider Signature: Silvia Staley APRN, STEREO COMPILER-C Nurse Practitioner [address] [place] [address] [place] [address] Normal [facility] MRI SHOULDER LT WO CONon MRI SHOULDER LT WO CON EXAMINATION: MRI SHOULDER LT WO CON HISTORY: Derangement of left shoulder joint ; left shoulder pain, bruising, and swelling since dislocation several weeks ago COMPARISON: XR shoulder left 11/14/2022 TECHNIQUE: A variety of imaging planes and parameters were utilized for visualization of suspected pathology. Imaging was performed without contrast. FINDINGS: ROTATOR CUFF REGION CUFF TENDONS: No visible tendinitis or tear. CUFF MUSCLES: Normal appearing muscles. DELTOID: No significant atrophy or tear. LONG BICEPS TENDON: No abnormal signal, attrition, or tear. LABRUM/BICEPS ANCHOR SUPERIOR: No visible labral tear or biceps anchor pathology. ANTERIOR/INFERIOR: No visible tear or attrition. POSTERIOR: No posterior labrum abnormality. CAPSULE No visible capsular laxity or thickening. AC JOINT REGION AC JOINT: Normal acromioclavicular joint. AC LIGAMENTS: Normal acromioclavicular ligament. CC LIGAMENTS: Normal coracoclavicular ligaments. ACROMION: Normal horizontal (Type I) configuration. SUBACROMIAL BURSA: Normal. No significant effusion. HYALINE CARTILAGE: Normal. No visible cartilage narrowing or focal defect. BONES: Increased T2 signal consistent with edema within anterior superior bone marrow of the humeral head. OTHER OBSERVATIONS: Negative. No other significant findings or glenohumeral effusion. IMPRESSION: 1. Mild-moderate bone bruising of anterior superior aspect of humeral head likely secondary to recent dislocation. No appreciable fracture line or cortical disruption. 2. No appreciable fracture or bone bruising of the glenoid. Electronically authenticated by: KM العراقي Date: 2022-12-04 06:36 Normal [facility] XR SHOULDER LT 2V or >on XR SHOULDER LT 2V or > EXAM: XR SHOULDER LT 2V or > HISTORY: Shoulder joint pain COMPARISON: None. TECHNIQUE: 3 views of the left shoulder FINDINGS/ IMPRESSION: 1. Mineralization within normal limits. 2. No acute fractures or dislocations. No Hill-Sachs deformity or osseous Bankart identified. 3. Normal glenohumeral and acromioclavicular joint spacing. 4. Unremarkable soft tissues. Electronically authenticated by: GRIFFIN MONTELONGO Date: 2022-11-14 20:42 Normal [facility] Coding Summary.on 10-27-2022 Coding Summary. [id number] Gh 0bWw+PGhlYWQ+AP0LEMUqI 30mjNJebC9yD2EECQnOCcg lTHEBOGaCZxJhjcLdMN2py XNjZXJu IC8+FA8gJIJvCmwgtSYkc5 J1tHB9K31ypk7xHIsonAG6 VVLkBvMgpktet0ggxIp8LR cuNmluOyBt FVNheA77IKA1rS00Kh65aP NwkPAby9iysAj3VkOyUDWn YGA2kVweSKnko5EnPFCbH1 0kgCMfg7E7 LZJkgHfrgMMvDnNfbAW8pF 9xKLzthnrza6sxkuqnXft3 jm13mXRcr4I3zVZ4N6Wxcc D6DUUkiXBz SnxudVCDfC4nmtoud5prjm kgGpStYJKnJTt4ZEm8DOPw gVbcNxLjPR27FUP0UGCigo PyS8JgNSJa xQsaEzP3d9E6Gg9PO7TNHn jfQ7ABHDYGCUgacFY+PC90 mm73B7FzZgxdCgp9QRYsZS X9lYO0qR6s GDClNBmht5N9xTV4P7Jmfr Mnrn4mg6mxCSUuDEuhB78h cFXqf9R9IBUhrZZ7OZChgU qdCnHdiB04 Oyc+SVMvhOvzx8WbMqkaf8 qlz1inuYn8SqnhKZSnztRq lMpnMHZ2u4DyKb0nIBFfaZ E3cFM8gR8w IbNuEkW9UVdnG877WlOsgW KcKwdhC12qY5YwcHI+PHRy Swp7ARHlgZiwZA6oY8PiCD RpbmctbGVm oBqzMY4xSGKzzqmtZAVrvF 8xLIWrG0e2UgXgRdS0JUks U2CtHECketmmCs12kV3eGa CzWmP4CAxx M8QrqoE4JRActGSiQDwaAN W9N50bp5B9PEIuKCYuFVH9 bJR2rS4qcDkdcpxhxEYgnO sgdmVydGlj IAuoYYzeL253OWXuyIdkCx NvZGluZyBEYXRlOiAgMDMv MTAvMjAyMzwvdGQ+PHRkIH L4lHagNZJn rGBkNUnwSx9ffVruaKdpTF 0zYPEcscwwTTSwtI2xKHPq kGUhjHrmND5vBTOakhwoi4 33UuHlTYM7 QLIggKBuL2GxkB1xSkTyXS BeXNGiX5ZwvNGaZOjmA193 FKzuHpE8UZBvfcQyD1MnFJ FsaWduOiB0 u1X6De7Rh0PndmkwM9FuuG RpWxZmJpsfWJi9E0RvHvfi dHI+WM09TPNuTW80AVn6XS C4jCzrGGad GTBtR6SsqC7vTbVqVAPjWD RkOyc+PHRhYmxlIHdpZHRo GFgyYFKzPwRlySdvEH3wXv 9yZGVyLWNv mRuzfAYsCjLov0muQPSlZE ofQI4vwTejJ9ApcGE3BVAk l3o1Vv24F91jB5FsqDY+PG XguQF6yXZ1 yE5uUsIpBdI2IOydR552Zm QmiLOdNshyf3sxm0dadRb9 OkB1UTJpxmGabVbmHOK5x9 SnKy88N63i IHdpZHRoPSIxNSUiIHZhbG gpxc6mdS4uSk6+PGNvbCB3 pPJ3hH1fTmUfQjK9YYrdI7 49InRvcCIv Qjbhn6kvd8tppNz5ZhHuRR NjgcPwfAlmTDW0p4GgOd32 Y0WndOwjc8SbVon6bi05tV Iso0D6nEW5 R3EpPQXuawezkYYjcHurDS 6vMTFnhmlqSSWhiY5aWAAg C1p3HqDdOtY1UXyjA1Fiic C0MYFrxEDb WSYqiUFObS7rcobne1ttvs smFyOoPMXcCBa4EEk1NUNc sFpdNaVaUSY8GfM7XZG6yY HdeH2glEzu etxloM6tSti+HLC6rCPonY QPRH0oNzbfnYN+PHRkIHN0 zLzlPKhnXGEmiW0dVRZvT0 d6SlItEjV9 FJtoS4RamfE4IWSpbCGbEL MujCKWbC1sklvrs5gtffih MmPtQEVzSAf3EQe9SXMipF duOiBsZWZ0 LjX8EEW8gEFmpB6hjTjdii tniX5pNru+QmlydGggRGF0 LUs6I3ZxWvd7YBWkhAdiOM 0ncGFkZGlu Vg7sgGglaUpgNO0gEOOnuv eej123WtXob6kdCGIesJUl UMvnSZA2Q61fx1Y1YLPqWP HtSUI3bIZ5 yE6qaIfyiaayeEGqxJkwmf UadGocVOwvWTnzA319OVJc nNywXxQqOMi3E2TnGop8KG FvtZikXT7p jHOiTFidZr5iwWvdpAhvCD 3dSHSguufwu776MsQxj8wd JBBbsDXjKOquIQB8O40ah8 V4QPMzHPFf AWZ1eCA7rR8dlHqxfxjpbX VmdDsgdmVydGljYWwtYWxp U991FINzhSbgPsNicLb5N8 PhKfe8EMJb xUbwXK1biFZhCTmtVe2mwV xjxOubPG2eOIRtxqntw072 GmQml2bxFNQaoTWxXXnuYS A9N95gg2A3 SXIoLTKmOIM3hYM9oA2kdW lnbjogbGVmdDsgdmVydGlj VRubSRsgB261FRDgxKpyGn BhdGllbnQg LXnaEPt7Z6AyBkmptHS+PC 11YHFkUU58qHNebCElc3ue gWi9PuAwGBNaJGB0xYmlQO wck3GeSPXx N37woQVuu3Q8LXMatLdscS BfWfHahGB8dK0oBLyvyiyf k9rkkfngLmeii8frcd06iN 11Z37xAMcx ZHRoPSIzMCUiIHZhbGlnbj 0tpL2eEm2+SPMtfAY9mCS3 zE0zGSEoBeK1EDnsE756Kq RvcCIvPjxj i2xmi9wfwBs3ZrZ7LCZqfp RgoOezIBA3c7ExFe03Y31v IHdpZHRoPSIyMCUiIHZhbG ggby9kyE6k Ii8+DRVbpGM5wSM1lN2fFn CkAnW7RJwzM183WsQbgTUb GyjqN23qS3MhnET+PHRyPj q5SPTloQkj RZ6beCZkONcdQm2pJZG1Wq PoJcXxQBruZ6HpEQVkskjt thyjlXS5LXDiFZJcyF82Pd 9udDogMTBw wYYCkH8ojxysw6giubspTs OnKVGcUXw2SMt3EOPgsFvj SyMrERP7WpB4VDE4wFQjsQ 1hbGlnbjog wO7aU2JrXZJxfuniRp16iK 7uEgIcDvI4HElyKcq+Q0hB FY1ZOhrcAFHBOVGAYR48AD 09eVGvu5L1 jIN4G8SnIFZucvjfpqkksH F9ZNRiQVXncE69iDMwEApg Do7xl0M9z683BBJbSYRwbE 40Vm9kuXmb XLDkcXXTfY0oljvkv5uhgg brYiRyKPAgXOd2OHr2SLCp jYdxPwQeMQK8HxB9EXK8eW NdbD9vvLbq gjotlW9yDcn+MTEvMTAvMj AwNTwvdGQ+LJPkNGI0iMik YLymMDKfkT7cJHLqH2h5Wz AmWaJ2QFdq N7FkJOToffylMr90mO9gPj PgFnU7WGktM7ZkhjK4CXQv pJSvMPiyJZX4J12mi9S1WE MwMDAwMDA7 iZX3xV8yvQcmmaxgoVXzoZ jqzcDsqRtdPMwyUOpwO963 TWXzvXzgVqH2QGegGSZyQO 44TD47kXOy m5R7lES1G0HkIIQqvgjyth eqlUW3QNTfWINwzG70uMBo KRodXq9xt2V6t794NQIiLM UrmM56Ll3z dRnwVXExhJOOaV4tjicvh1 oaadkgNjJiKKSlVTz3PFa2 DGAvcCiwVvJyWNQ0DrS6OI Q3sWHwlK3r dYqgymhdwV5nYht+TWFsZT wvdGQ+WTZtNOZ7eZlgMDpj DEUdbL6jBSXbW0a6EpVdDy M6OAfzJ3Js RAIwizvpCh96eZ6jLlJkOe T9FSrnI0XqueI8XJTrxARb LImsXSD4F79pu2V7PNThDP EcHXM7oRO7 qR6agDinokrqrKPbnQpemt DssQfwYSjoVHiuN724NWMo hLbxXpUzYAHrWQ2paPzkcC Q+HN50ye15 K9NhUcvtBei3GYOpYDL7xF M6mX9oGRVmPRynv1Z9kMV8 F1MxfwQpdg5lo5tgDIAjAX suU17zbMFl n4G9LAXahXT2ZPWrwRxkEs YopZ56Cdu+ZSVevShhs8Xy Glzzz9tvt3eziDy8UrXoJI IgdmFsaWdu DUC4q7JeVq12J77hGCieBF YqRLZaMTFgDIGifHkkyd7c bH6eJi5+ZIQrrIM9pDJ0dY 6yBeFeUxO8 PHfuW836MzBuhVCdMdkcs3 tja1btvZz6NyUtPZWjigKs aXoiMXF8d5XrWs38U7WajE agm3PaAnb2 ev72iQOlk1Q6uXK3B8OaKE DfoqaxrFHndZesDJ1dQHBy ahwiNIVqxP5sMSHkK1h7Bt PcZjW6KTjy W8IvasM5QNUkqIErCTLvcV PYtZ7ucpeuz2usctvpPzPg PZJeTCx1CBe6RNQanXjmWv SaMHS2BtE4 YFB3sVMutL1rpBlnixlofK 9wOyc+UAe2x7annBUcOE6n pWZ2SX18MM37wRKul4R6bH D7X8IbGVBa gitinaotoRF2OSWxBCSlvG 12Fo8hkTybLd2qVARaIFI9 MHEeaQOgT8FalO3kAfBjMN RlVNKtG3Yg zWOuNHcjN602XMjxGfZ1UL YchhBkH3YuQGGvkZooDoP5 c6B6Ep1QMZ18EF89TS33uB Hrd4A5mCX0 L9MuGVHiavjsdkdvhHW3VR LbLTArjM84Wf6skDphSn3a TVUmWXD8KOPswWSdN6OfnN 9yOiAjMDAw GIRsM5VeaUFaHZphZ085AJ obCdK7SECagbUbQ8ViFOZo vVhbOvA1b9P8Le8XXe77LL 39OT79lRJl h2H6cKY8Z0HtLLLgptwlfu qawYW6GTToYAOpgF48Tw6v bLjgTh6uHSKwDTB6LUQptV JyC0AfgK1q MmVkSNYmQXZxH5ZzxWIfOM poL611ZCrfIvT5PJRaypYn S5QrYDAtaNlcPeT5v6J6Tn 3RUIljbyz6 C8JuBesidIS+YS91KDDePR 45tXQocGRzb9sqwJa5WhDx MVDuENL5fJpoEGlvp5XzMU IzC25owCXs c2U6 (more content not included)... Normal [facility] ED Note-Physicianon 10-27-19 ED Note-Physician Basic Information Time Seen: William Sahu PA-C 10/25/2022 17:25 Chief Complaint Pt has had sinus pressure/reddened eyes x 3 days. States congestion as well. Did try some steriod eye drops, but stings eyes. History of Present Illness 17-year-old male reports to the emergency department with his mother with a chief complaint of sinus congestion, as well as redness around his eyes. Reports has been going on for 3 days. Reports little bit of a sore throat as well. States that he did try some steroid eyedrops, but his eyes are still staying. Denies any contact use. Denies any ear pain, or coughing. Reports that it feels like he has a head cold. Denies any fevers or chills. Denies any chest pain or shortness of breath. States that his eyes are just itchy, they have been matted when he wakes up in the morning. Review of Systems A 10 point review of systems is negative except as noted above. Medical and Surgical History: Reviewed and noted Social history: Lives at home Family History: Reviewed. Tobacco: Denies Physical Exam Vitals & Measurements T: 36.8 ?C(Oral) HR: 67(Peripheral) RR: 16 BP: 131/76 SpO2: 100% HT: 193 cm WT: 93.4 kg BMI: 25.07 General: The patient appears well and in no apparent distress. Patient is resting comfortably on bed. Afebrile Skin: Warm, dry, no pallor noted. Head: Normocephalic, atraumatic Neck: No JVD Eye: PERRLA, EOMI. Bilateral conjunctive a is erythematous, with purulent discharge noted. ENT: Moist mucus membranes. Pharynx pink moist no erythema or exudates. Bilateral TMs intact with no erythema or bulging Cardiovascular: Regular rate normal peripheral perfusion. Radial pulses +2 bilaterally Respiratory: No respiratory distress no accessory muscle use no obvious audible wheezing. Lung sounds clear to auscultation Chest Wall: no deformity Musculoskeletal: normal ROM, no deformity, no swelling GI: No obvious distention Neurological: A&O moves all extremities equal strength and symmetry Psychiatric: Cooperative and appropriate Medical Decision Making MEDICAL DECISION MAKING Number and Complexity of Problems Differential Diagnosis: [] [facility] Data External documents reviewed: [] My EKG interpretation: [] My CT interpretation: [] My X-ray interpretation: [] My Ultrasound interpretation: [] Decision rules/scores evaluated: [] Discussed with: [] Treatment and Disposition ED Course: 17-year-old male reports to the emergency department with a chief complaint of red eyes, as well as upper respiratory type symptoms. Reports has been gone for 3 days. Reports that he has been using drops in his eyes, that are not helping. States he is now a contact user. On physical exam of the patient, he is afebrile with no acute distress. He does have purulent discharge from bilateral eyes as well as a erythematous conjunctive a. Due to this, likely a bacterial conjunctivitis. He also has other upper respiratory type symptoms, but my exam of the patient is otherwise benign. I discussed that this is likely viral, but because of his eyes possibly being bacterial, we will treat with Polytrim. I discussed other medications to help with his upper respiratory type symptoms. Discussed return precautions follow-up with your primary care provider in 3 to 5 days. If symptoms worsen, do not improve, or new symptoms arise please report back to emergency department for further evaluation. The patient was understanding and agreeable to plan moving forward. Shared decision making: [] Code status: [] Assessment/Plan Conjunctivitis (H10.9: Unspecified conjunctivitis) URI (upper respiratory infection) (J06.9: Acute upper respiratory infection, unspecified) Orders: polymyxin B-trimethoprim ophthalmic, 1 drop(s), OPTH, q3hr for 10 day(s), 10 mL, Refill(s) 0, [id number], 193, cm, 10/25/22 17:24:00 EST, Height/Length Dosing, 93.4, kg, 10/25/22 17:24:00 EST, Weight Dosing Disposition Plan Patient Discharge Condition Stable Discharge Disposition To home Discharge Prescription List Prescriptions Polytrim 10 mL Soln-Opth, 1 drop(s), OPTH, q3hr Follow-up With When Contact Information JAYDA SEBASTIAN In 3 days 10/28/2022 EST [address] [place] [address] Business (1) Additional Instructions: Follow-up with your primary care provider in 3 to 5 days. If symptoms worsen, do not improve, or new symptoms arise please report back to emergency department for further evaluation. Patient Education Upper Respiratory Infection, Adult, Didq-hv-Ltpb Viral Conjunctivitis, Adult Bacterial Conjunctivitis, Adult, Ezha-ad-Rkpy Attestation Patient seen and evaluated by the physician pediatric physical therapy assistant. Attending physician was present in the emergency department and supervised care. This visit was performed by both the physician and an APC. I performed all aspects of the MDM as documented. This report was transcribed using voice recognition software. Danika (more content not included)... [facility] Comment on above: Result Comment: Elec tronically Signed By: William Sahu PA-C\.br\Date and Time Signed: 10/25/22 21:41 EST\.br\Electronically Co-Signed By: Natasha North M.D.\.br\Date and Time Co-Signed: 10/26/22 07:05 EST Consent for Treatmenton Consent for Treatment [id number]#1.0 0CD:127 [facility] Discharge Instructionson Discharge Instructions [id number]#1. 00CD:127 [facility] ED Clinical Summaryon 2022 ED Clinical Summary [place] [id number] ED Clinical Summary Person Information Name: EDGAR NUÑEZ/[facility] Age: 17 Years : 2005 Sex: Male Language: French PCP: JAYDA SEBASTIAN MD Marital Status: Single Visit Id: Visit Reason: Sinus Pain/Congestion; SINUS PAIN/PRESSURE - EYE IRRATATION Speciality: Acuity: 4 Enc Type: Emergency Med Service: Emergency Arrival: 10/25/2022 17:01:28 Discharge: 10/25/2022 17:54:17 LOS: 000 00:53 Checkin: 10/25/2022 17:01:28 Checkout: 10/25/2022 17:54:17 Dispo Type: Home (Routine DC) EVENTS: Event Name Event Status Request Date/Time Start Date/Time Complete Date/Time Arrive Complete 10/25/2022 17:01:28 10/25/2022 17:01:28 10/25/2022 17:01:28 Document Home Meds Request 10/25/2022 17:01:28 Triage Complete 10/25/2022 17:01:28 10/25/2022 17:24:29 10/25/2022 17:24:29 Bed Assign Complete 10/25/2022 17:24:39 10/25/2022 17:24:39 10/25/2022 17:24:39 Dr Exam Complete 10/25/2022 17:24:39 10/25/2022 17:25:12 10/25/2022 17:25:12 RN Exam Request 10/25/2022 17:24:39 Registration Complete 10/25/2022 17:25:12 10/25/2022 17:42:41 10/25/2022 17:42:41 Discharge Complete 10/25/2022 17:35:27 10/25/2022 17:54:21 10/25/2022 17:54:21 Reg Complete Request 10/25/2022 17:42:41 Dr Exam Complete 10/25/2022 17:50:48 10/25/2022 17:50:48 10/25/2022 17:50:48 Registration Request 10/25/2022 17:50:48 Transfer Complete 10/25/2022 17:54:21 10/25/2022 17:54:21 10/25/2022 17:54:21 ADDRESS: [address] [place] [phone] PHYS DOC NOTES: MEDICAL INFORMATION: Prescriptions Given: New Medications [id number], [address] [place], [place] [phone], [phone] polymyxin B-trimethoprim ophthalmic (Polytrim 10 mL Soln-Opth) 1 Drops Ophthalmic every 3 hours for 10 Days. Refills: 0. Medications to Continue with No Changes Other Medications diphenhydrAMINE (Benadryl 25 mg Cap) 1 -2 caps By Mouth 3 times a day as needed for itching. Refills: 0. lidocaine topical (Lidoderm 5% Patch) 1 Patches Topical every day. apply 12 hours on and 12 hours off daily. Refills: 0. naproxen (Naprosyn 500 mg Tab) 1 Tablets By Mouth 2 times a day. Refills: 0. PATIENT EDUCATION INFORMATION: Instructions: Upper Respiratory Infection, Adult, Usbs-bd-Zsmg; Viral Conjunctivitis, Adult; Bacterial Conjunctivitis, Adult, Syfw-dt-Wqqb Follow up: With: Address: When: JAYDA SEBASTIAN [address] [place] [phone] [facility] ([employer] In 3 days 10/28/2022 Comments: Follow-up with your primary care provider in 3 to 5 days. If symptoms worsen, do not improve, or new symptoms arise please report back to emergency department for further evaluation. DIAGNOSIS: Conjunctivitis; URI (upper respiratory infection) [facility] ED Patient Education Noteon 10-25-2022 ED Patient Education Note Infectious Disease Upper Respiratory Infection, Adult An upper respiratory infection (URI) affects the nose, throat, and upper air passages. URIs are caused by germs (viruses). The most common type of URI is often called the common cold. Medicines cannot cure URIs, but you can do things at home to relieve your symptoms. URIs usually get better within 7?10 days. Follow these instructions at home: Activity ? Rest as needed. ? If you have a fever, stay home from work or school until your fever is gone, or until your doctor says you may return to work or school. ? You should stay home until you cannot spread the infection anymore (you are not contagious). ? Your doctor may have you wear a face mask so you have less risk of spreading the infection. Relieving symptoms ? Gargle with a salt-water mixture 3?4 times a day or as needed. To make a salt-water mixture, completely dissolve ??1 tsp of salt in 1 cup of warm water. ? Use a cool-mist humidifier to add moisture to the air. This can help you breathe more easily. Eating and drinking ? Drink enough fluid to keep your pee (urine) pale yellow. ? Eat soups and other clear broths. General instructions ? Take ltbq-ihq-aaerrbm and prescription medicines only as told by your doctor. These include cold medicines, fever reducers, and cough suppressants. ? Do not use any products that contain nicotine or tobacco. These include cigarettes and e-cigarettes. If you need help quitting, ask your doctor. ? Avoid being where people are smoking (avoid secondhand smoke). ? Make sure you get regular shots and get the flu shot every year. ? Keep all follow-up visits as told by your doctor. This is important. How to avoid spreading infection to others ? Wash your hands often with soap and water. If you do not have soap and water, use hand photographer apprentice. ? Avoid touching your mouth, face, eyes, or nose. ? Cough or sneeze into a tissue or your sleeve or elbow. Do not cough or sneeze into your hand or into the air. Contact a doctor if: ? You are getting worse, not better. ? You have any of these: ? A fever. ? Chills. ? Brown or red mucus in your nose. ? Yellow or brown fluid (discharge)coming from your nose. ? Pain in your face, especially when you bend forward. ? Swollen neck glands. ? Pain with swallowing. ? White areas in the back of your throat. Get help right away if: ? You have shortness of breath that gets worse. ? You have very bad or constant: ? Headache. ? Ear pain. ? Pain in your forehead, behind your eyes, and over your cheekbones (sinus pain). ? Chest pain. ? You have long-lasting (chronic) lung disease along with any of these: ? Wheezing. ? Long-lasting cough. ? Coughing up blood. ? A change in your usual mucus. ? You have a stiff neck. ? You have changes in your: ? Vision. ? Hearing. ? Thinking. ? Mood. Summary ? An upper respiratory infection (URI) is caused by a germ called a virus. The most common type of URI is often called the common cold. ? URIs usually get better within 7?10 days. ? Take indw-cyd-uyzrguf and prescription medicines only as told by your doctor. This information is not intended to replace advice given to you by your health care provider. Make sure you discuss any questions you have with your health care provider. Document Released: 01/22/2009 Document Revised: 08/14/2019 Document Reviewed: 03/29/2018 [employer] Patient Education ? 2019 [employer] Bacterial Conjunctivitis, Adult Bacterial conjunctivitis is an infection of your conjunctiva. This is the clear membrane that covers the white part of your eye and the inner part of your eyelid. This infection can make your eye: ? Red or pink. ? Itchy. This condition spreads easily from person to person (is contagious) and from one eye to the other eye. What are the causes? ? This condition is caused by germs (bacteria). You may get the infection if you come into close contact with: ? A person who has the infection. ? Items that have germs on them (are contaminated), such as face towels, contact lens solution, or eye makeup. What increases the risk? You are more likely to get this condition if you: ? Have contact with people who have the infection. ? Wear contact lenses. ? Have a sinus infection. ? Have had a recent eye injury or surgery. ? Have a weak body defense system (immune system). ? Have dry eyes. What are the signs or symptoms? ? Thick, yellowish discharge from the eye. ? Tearing or watery eyes. ? Itchy eyes. ? Burning feeling in your eyes. ? Eye redness. ? Swollen eyelids. ? Blurred vision. How is this treated? ? Antibiotic eye drops or ointment. ? Antibiotic medicine taken by mouth. This is used for infections that do not get better with d (more content not included)... [facility] ED Patient Summaryon 023 ED Patient Summary [place] [id number] Patient Discharge Instructions Person Information Name: EDGAR NUÑEZ Age: 17 Years Arrival Date: 10/25/2022 17:01:28 Discharge Diagnosis: Conjunctivitis; URI (upper respiratory infection) Primary Care Physician: CHIOMA SULLIVAN, JAYDA Rueda Provider Information Primary Provider: Natasha North M.D. [address] Justice:None The exam and treatment you received in the Emergency Department were for an urgent problem and are not intended as complete care. It is important that you follow up with a doctor, nurse practitioner, or physician?s pediatric physical therapy assistant for ongoing care. If your symptoms become worse or you do not improve as expected and you are unable to reach your usual health care provider, you should return to the Emergency Department. We are available 24 hours a day. EDGAR NUÑEZ has been given the following list of patient education materials, prescriptions and follow-up instructions: Follow-up Instructions: With: Address: When: JAYDA SEBASTIAN [address] [place] [phone] [facility] (1) In 3 days 10/28/2022 Comments: Follow-up with your primary care provider in 3 to 5 days. If symptoms worsen, do not improve, or new symptoms arise please report back to emergency department for further evaluation. In the event that this physician does not participate in your insurance network, please consult with your insurance company to find a nearby participating provider. Patient Education Materials: Upper Respiratory Infection, Adult, Ybke-kw-Fqdy; Viral Conjunctivitis, Adult; Bacterial Conjunctivitis, Adult, Oyqk-vm-Hmyn A MESSAGE TO ALL PATIENTS REGARDING OPIOIDS PRESCRIPTION OPIOIDS: WHAT YOU NEED TO KNOW Prescription opioids can be used to help relieve uugygwfp-af-ceybys pain and are often prescribed following a surgery or injury, or for certain health conditions. These medications can be an important part of the treatment but also come with serious risks. It is important to work with your healthcare provider to make sure you are getting the safest, most effective care. WHAT ARE THE RISKS AND SIDE EFFECTS OF OPIOID USE? Prescription opioids carry serious risks of addiction and overdose, especially with prolonged use. An opioid overdose, often marked by slowed breathing, can cause sudden . The use of prescription opioids can have a number of side effects as well, even when taken as directed: ? Tolerance?meaning you might need to take more of the medication for the same pain relief ? Physical dependence?meaning you have symptoms of withdrawal when a medication is stopped ? Increased sensitivity to pain ? Constipation ? Nausea, vomiting, and dry mouth ? Sleepiness and dizziness ? Confusion ? Depression ? Low levels of testosterone that can result in lower sex drive, energy, and strength ? Itching and sweating RISKS ARE GREATER WITH: ? History of drug misuse, substance use disorder, or overdose ? Mental health conditions (such as depression or anxiety) ? Sleep apnea ? Older age (65 years and older) ? Avoid alcohol while taking prescription opioids. Also, unless specifically advised by your health care provider, medications to avoid include: ? Benzodiazepines (such as Xanax or Valium) ? Muscle relaxants (such as Soma or Flexeril) ? Hypnotics (such as Ambien or Lunesta) ? Other prescription opioids KNOW YOUR OPTIONS Talk to your health care provider about ways to manage your pain that don?t involve prescription opioids. Some of these options may actually work better and have fewer risks and side effects. Options may include: ? Pain relievers such as acetaminophen, ibuprofen, and naproxen ? Some medication that are also used for depression or seizures ? Physical therapy and exercise ? Cognitive behavioral therapy, a psychological, goal-directed approach, in which patients learn how to modify physical, behavioral, and emotional triggers of pain and stress. IF YOU ARE PRESCRIBED OPIOIDS FOR PAIN: ? Never take opioids in greater amounts or more often than prescribed. ? Follow up with your primary health care provider. o Work together to create a plan on how to manage your pain. o Talk about ways to help manage your pain that don?t involve prescription opioids. o Talk about any and all concerns and side effects. ? Help prevent misuse and abuse o Never sell or share prescription opioids. o Never use another person?s prescription opioids. ? Store prescription opioids in a secure place and out of reach of others (this may include visitors, children, friends, and family). ? Safely dispose of unused prescription opioids: Find your community drug take-back program or your pharmacy mail-back program, or flush them down the toilet, following guidance from the Food and Drug Administration (more content not included)... [facility] Prescriptions/Work Noteson 0 10-25-2022 Prescriptions/Work Notes [id number]#1. 00CD:127 [facility] Coding Summary.on 10-02-2022 Coding Summary. [id number] Gh 0bWw+PGhlYWQ+ZW2BUKIiN 31waOJmvW9BM0qAKQ0JAAE FXTGIHC5RWO7afZS8GAgbV 2VybiAv QhkwhMCmIV72QQg3EPT3zQ oiPSeetJ4psFOyE2a7YiAh XE00wA37FSouRSCdOpL7Qk ZpbjsgbWFy E3apRyVacQGaFim+PHRhYm xlIHdpZHRoPScxMDAlJyBz qBjmYP5pFl5zCGDjUEJlwC xhcHNlOiBj n3xkPVUiFHktIP9vpLokN0 FguOT2IPLhj7m7Bx66xCG+ HAEfWUO3eTmuUQvdx801Bc Ifh5aaWEI0 rXNtUSuuYQT7W64jo9M1OS LcVFVzIDQ4cMZ6wY7kvSzl nrviV4DemQTiFwF3EEC4oZ JisI9kaBok mnyxlX5oWfv+Q76ZVK2SQM FFQE1OWyf6F2NrTjjtaGB+ GK29VEKjCP98fBAutKGoj0 typZc0QnJl GBVgHON2nLdyOUbiu9RnUB IqY82ieOVcq1Q7WFKunGas wKReFnQtlBO7bR6xCNqbug jxm4mpvoyg Vmkyx3oyuf84cA09B56ySN deHZNsSZD6ZFJwQZJvjGrq cw0ejN5hVw5+MQtpi8cww4 yshMy5RsNk ZRNydaQadNxsHEM4z1IjEa 04V0YnjBsrg3VkYvf1im36 dPZbs7F6pLP1IKsuIIZalA 3qTEiaYoR8 DUUlInLvrF12sDJkGNqxHb 2cxWezdJiwUJ4cJCSdqyel IKEztS3vSLNwyXZgqUapUM 4wNTBpbjtm d066SqLjPHD3IZRszFCuB9 DtaZ0jQxCmLBOsBOIpK8Tu cCIzAQdbD169LJudDgP4KR BpnbIrP5Aj FDVnqNnxFoL5g1Z5Wh6Cb9 QhjsaeEJA3UDqnPNZyKlPd BbDfHbZ5X9YdBsu7JCTozC feQR7kE6Lq DLRavdhjpykitJF3COMaNN LiuC91jGBwKHdfCu6km8O1 j566ZTVtZGGfxO83Um0oyM ogMTBwdCBU bO9kcgxec1iqimnaHeEcFI ZjZGp6HUj7NYBcmYxvPvAe NCI0IfK8QIJ2xVFusM8oxQ opziwosM6e Oyc+P00vgH8kMVO2NCT4qu rqZNGulgRzSB08BS75G1Ft PjwvdGFibGU+PGRpdiBzdH hmBP4pTrCr a6idt3CzDHlyD0DkLOGbSZ lpTmu1NRDiOKE1tTN6rD7l VIRqVXupu4B2oIE5K5Flrt Vyxn3nq0ex PYSlOOywN78nbVCek7P0IR QtqWH7UNKhsAecBqBgkO59 Oyc+UNOjoSpkq2VhRtuap2 alk3lnsCx3 FmMqAVDnvkIkrGbcIXT5v4 AaBe07V69hNOgbSTMbNLDe YNWmEKLkfAuozf5anN6vTm 8+PGNvbCB3 nEO0qZ2vLCJxQtU9SSjqM9 82HzFrpGXoNscnp0jca8ro qNb7EzHeASGwgqSpdGrlUP A6w8MoBv74 N36iCUwfCQZcFLLfIYSlCZ AltLelxm2bxC2eGb7+PC9j x1dvsr87eK12cZZ+PHRkIH Z4rYvoFVss KPGvrG0bVJaxKpW2ZMZsYd DlsG49wOGxMSleTb9yuOba bEriME8kJZDavijcf892Cc Sqq1viEJBl zFCcMIbiHVR1E62gm8S1WQ QbFCLsBMO0zEP7jA6chCbg bjogbGVmdDsgdmVydGljYW qiJYduR648 IHRvcDsnPlBhdGllbnQgTm ZhYXe4D9BnHiw9MDTlsMbu UL4zkRWfRBhuPt9ueNeovB axRQ8mPVKh mdjpe651GcXou1suOHToeW CkWGlxUGT5B72go5Z5AINv SVLsGQN7kAX6bC9ejJksad ogbGVmdDsg gqWmoIfbLGhaKNrxL658AT RvcDsnPkJpcnRoIERhdGU6 YS34AQ67uUDkt3R8yBT4K3 BhZGRpbmct jnyaeMU7MNIbWKKnmM89Bs 4jtLudKt2nVBKuEQD8LPWx mVHuO0TqyI4oIfJkPXTgGG CiM7ZpgSCi IGenE949RKqfJvY3LBSyfa LkU4IkWVQyrAdiJhQ9q3K2 Gm5IP0D8CV95GQ52dDZqf0 Z1qUI3C4Eb PFIzqbfqxptvaZI0WVKqUJ SxbH74Ub2lsIksAu8aKQFt YSW2GURppHWgQ6AomW6tXt AjMDAwMDAw G1JiwNZpZGjkM777HMwmMj Y1LNQzsmAeT5XvUIJyiJny VoD9m4R2Ua2UICt4RT80MR 51yVHbe1M5 dTQ8U5XiIGRfyawnvqnedO I2BYEaTDBmkC21Kv8suAyk Eb9zTGOdEPB9EGSuzLZlP8 VmsH5sUxEt NWXxKJGhU0LkcQItYEzoD3 27RHtdNjH6BHLwixEvR3Gs BGEpuXaqGsV7j7E1Qz1JMH JePN62SIH0 jBQ0VW48AE97N2HmThdexI FibGU+PHRhYmxlIHdpZHRo KCxoXMKeFzDqiOwfPK0kIp 9yZGVyLWNv rNzcdFUhAlWxb1diXPQuLG sxMB4jkLliV0ZauCO6ZJNk t4z2Ia93N40iM2FmhKI+PG DvsKF2wTC0 sB4lMpWtAhF5PQnqT536Lx IuyKAvIzpsa2zly7uddIu9 WhO6JDMniyJmxOefMVX6e8 NdDv27D01z IHdpZHRoPSIxNSUiIHZhbG idfq8vkO4cWi4+PGNvbCB3 fSI8mG9uWbIgKgA0NQkuA4 49InRvcCIv Xxexn8xzd5vmpVp2UpLfAE VbuyBhzCpoAYR6f9KsDq17 T4ExvTuct1UwVas9ux63eP Dyf9Q7wAU8 Y3UlSHQadqidmHJroDjhXD 5mRWTyyzhjJLVpbU5yUDLw E2f9FxVhQjZ2WMqtP8Atgp Z6DDXfbDKw GYreKWX6X05kp9T8QURaUB ZsNCR1tKG5uO7csOcqughs bGVmdDsgdmVydGljYWwtYW bcO477MTDq zTlqJVQnaW6wGMVihWGanF uoQL2mKUWhkjrjScPGKXRS HB5zIBXNHBbXMvgejBI+PH BbETU5rPar PUwiXSKdaR8zQGDuB1i5Wi RjLnO0OKyyC4KqIBZbccnj Gj78uH4uTaLrKoX5OIykJ7 QslqN1JHDq eBUwMFimDXN3G46up7N9TX KcENVsMLW7pNH5yC4saHyv bjogbGVmdDsgdmVydGljYW mvNCjeI323 IHRvcDsnPjExLzEwLzIwMD V8E6QlPhr0OFEhrYjpRI3m hEPtHVzjEl7xfAkvlNmwSZ 4wNTBpbjtw WIUgpS6jDLMqyAKxbDtnVY 9vLXAlenyll196OtQpFAX7 POUacSFfB3AnoK2sQhBjYO GbXIPmY3Py aYKbYWgfN231LXyoHtP6TD RihcZkE6XpDDIxvVyfDgF5 q7X5Na2dJpHWTNJsdaalhA Q+PHRkIHN0 jPkuEEdyNWZcjZ1tEIRxV2 w7OoOrLlV8BFyyC0ZkIDJj qvfdEw76dY0oBgBsApO4OA xrX0PblhV9 ZWRedUXaCWioGFA4N07ya9 L2ZAFlXZMaJAD9xDB6hT8o bGlnbjogbGVmdDsgdmVydG ljYWwtYWxp B301AWJylXgvPe1fdHT4C7 ZpOxy4TQOdqNklRI3xxSBo RYsuBr6yzJyfjTqkUN7oCN BpbjtwYWRk kJ0iZMJanTMqbXoiBI3hCG Ycfqnih568GtGrSVW7MHDf xJXpI8DvjZ6yEvDyHZRiWM UxW1WgyUSf ZJqoL814FUlsGsB0UIXnal WhN6JrBSUzgQerOzA3r2E1 Dm6AxGGbV1YyQ2c7P2WxVa wvdHI+PC90 FFGiEK21oUYlvAQku4ykbP g8MdWnGWDaTHC4fYpiTIoz k1VxTCUyR80jrAGtm8J0RF NvbGxhcHNl UhMixAI2kY0vEIhotknhc9 qbxaleWodqw2jcco31wJ03 W08kSXwmOEYgQBFhAGRlRG ZsrWxgfa3o uQ6nHb7+WTXhlTS6hXE4jK 3tLwQvJzX7WMgfV005LxSe jMYiWnmex4snh2jamCi5Df IwJSIgdmFs hFsePYJ9j9NvPj67L66eLC dpZHRoPSIyMCUiIHZhbGln yk6wuE0oMg3+BJ2pc3cykt 01wK23rMI+ ZSObXGA3tWkyTOdnMHTmoX 0jEMivUbA3VRTeEdGbhR65 vFHgMHtzJb6moBejfXhaGW 4wNTBpbjtm y387NkEuo9guBQIjkOVkAQ zmACX9P47uz9K1MMTeEILv SMX8eSM3xV9szRhhjfqpdB VmdDsgdmVy jCyaRLmbAKghM110EWOtnJ dpOgSskVHqC3tdvlFEZF8t OjwvdGQ+SSMoENP0lIyeUE goMTKfdY4o MHHkR6i4AbGsZkR2YFoaY6 SuoiQ8NHYjuVAcVJKjmPTJ sO9csiiuq8owcxelVtNuRK GzYFn5ZQf3 IRAzbImlTkQsHXS3CbY9ZD T1lZDcsK1myZqylurazG1b Oyc+RklOOjwvdGQ+PHRkIH X9oGlxASgb ZMRnoS6aXWUwZ4p1YtKwVp K5GOfzC0BbgbU2WFYwqQVp DGNdbFWOkB5tyydor7mlui ogIzAwMDAw HQi8TXk7YJRabYypWwWxYF N3TqT3KQN3mNIecF1anZfq lycsaM2mMpn+TVJOOjwvdG Q+PHRkIHN0 xYyfADxcAVQamL1lBZGcJ4 h9PsBwDpE8BUzzY4FlcrH7 FDNzzEIdXNMbhNDGeU1kub ltr9kurqvo OvXqXUXtZNc1TCs0QGXgyY egPtTxVML8CfQ1LRR9aDNw pO8epYipcixppA2kTvi+UG P4RCX2SQ41 RE03P2JzEtsmvXDmoQJ+PH RhYmxlIHdpZHRoPScxMDAl LhHtmIowUU5lQy1lEILeWD NvbGxhcHNl OiBj (more content not included)... [facility] ED Note-Physicianon 09-29-19 ED Note-Physician Basic Information Time Seen: Johnny Saez PA-C 09/27/2022 16:43 Chief Complaint pt. states hx of herniated discs since last year. c/o mid back pain that radiates to lower back. denies recent fall/injury. denies bowel/bladder issues. increasing pain x 2 weeks. History of Present Illness Edgar Nuñez is a 17 year old male with a history of herniated discs presenting with low back pain that has progressively gotten worse over the last 2 weeks. Two episodes of urinary incontinence over the past two nights. Patient endorses pain with prolonged standing and activity. Also with intermittent radicular pain down bilateral legs. He noted that both legs go numb after sitting for long periods of time and that he uses his hands to move his legs until sensation returns. Denied recent injury. Patient tried physical therapy last year with no improvement. No chronic medical conditions. No recent illness. Review of Systems Constitutional: no fever, no chills, no sweats, no weakness Skin: no Jaundice, no rash, no lesions, nopetechiae ENMT: no sore throat, no congestion, no hoarseness Respiratory: no shortness of breath, no cough, no orthopnea, no wheezing Cardiovascular: no chest pain, no palpitations, no edema Gastrointestinal: no nausea, no vomiting, no diarrhea, no GI bleeding Genitourinary: no dysuria, no hematuria, no discharge, no pain Musculoskeletal: moderate back pain with intermittent radicular symptoms, no trauma Neurologic: intermittent numbness in bilateral lower extremities after prolonged sitting, no headache, no dizziness, no weakness Psychiatric: no sleeping problems, no irritability, no mood swings/depression. Additional ROS info: Except as noted in the above Review of Systems and in the History of Present Illness all other systems have been reviewed and are negative or noncontributory. Physical Exam Vitals & Measurements T: 36.8 ?C(Oral) HR: 82(Peripheral) RR: 16 BP: 132/66 SpO2: 99% HT: 193 cm WT: 93.4 kg BMI: 25.07 General: alert, no acute distress Skin: warm, dry Head: no trauma, normocephalic Neck: Trachea midline, no adenopathy, no tenderness Eye: normal conjunctiva, sclera clear ENMT: oral mucosa moist Cardiovascular: regular rate and rhythm, normal peripheral perfusion Respiratory: Lungs CTA, respirations non labored Chest wall: no deformity. Gastrointestinal: soft, non distended, no tenderness, no guarding. Rectal exam: Refused by patient, refusal Back: Moderate tenderness to bilateral paraspinal musculature - worse on the right, pain exacerbated with extension, no trauma Extremities: Lower extremity strength 5/5 and sensation intact bilaterally Neurological: oriented x 4, LOC appropriate for age, CN II-XII intact, motor strength equal & normal bilaterally, sensation equal & normal bilaterally, negative straight leg raise test bilaterally, speech normal Psychiatric: cooperative, affect appropriate for age, normal judgement, normal psychiatric thoughts. Medical Decision Making MEDICAL DECISION MAKING Number and Complexity of Problems Differential Diagnosis: Lumbosacral strain, herniated disc, cauda equina MDM Data External documents reviewed: [] My EKG interpretation: [] My CT interpretation: [] My X-ray interpretation: [] My Ultrasound interpretation: [] Decision rules/scores evaluated: [] Discussed with: [] Treatment and Disposition ED Course: Patient presents to ED for evaluation of exacerbation of chronic low back pain. Due to the fact the patient endorsed a history of urinary incontinence over the last 2 nights, MRI was ordered to rule out cauda equina or spinal stenosis. MRI was negative. Patient given Lidoderm patch and NSAID in the ED. Patient also given follow-up with physical therapy. Return precautions discussed with patient. Patient discharged home. Shared decision making: [] Code status: [] Assessment/Plan Chronic back pain (M54.9: Dorsalgia, unspecified) Other chronic pain (G89.29: Other chronic pain) Orders: ketorolac, 30 mg = 1 mL, Injection, IntraMuscular, Once, Stop date 09/27/22 19:22:00 EST, STAT, Start date 09/27/22 19:22:00 EST, 09/27/22 19:22:00 EST lidocaine topical, 1 patch(es), Patch, TransDermal, Once, Stop date 09/27/22 19:22:00 EST, STAT, Start date 09/27/22 19:22:00 EST lidocaine topical, 1 patch(es), Topical, Daily, 7 EA, Refill(s) 0, apply 12 hours on and 12 hours off daily, [facility]/pharmacy #[id number], 193, cm, 09/27/22 16:43:00 EST, Height/Length Dosing, 93.4, kg, 09/27/22 16:43:00 EST, Weight Dosing naproxen, 500 mg = 1 tab(s), Oral, BID, # 20 tab(s), Refills(s) 0, [facility] [id number], 193, cm, 09/27/22 16:43:00 EST, Height/Length Dosing, 93.4, kg, 09/27/22 16:43:00 EST, Weight Dosing MRI Spine Lumbar w/o Contrast Disposition Plan Patient Discharge Condition Stable Discharge Disposition To home Discharge Prescription List Prescriptions No active prescription medications Follow-up No (more content not included)... [facility] Comment on above: Result Comment: Elec tronically Signed By: Deisi Poon\.br\Date and Time Signed: 09/27/22 17:25 EST\.br\Electronically Co-Signed By: Johnny Saez PA-C\.br\Date and Time Co-Signed: 09/27/22 19:45 EST\.br\Electronically Co-Signed By: Natasha North M.D.\.br\Date and Time Co-Signed: 09/29/22 09:52 EST Consent for Treatmenton Consent for Treatment [id number] 0CD:127 [facility] Discharge Instructionson Discharge Instructions [id number]. 00CD:127 [facility] ED Clinical Summaryon 2022 ED Clinical Summary [address] [address] ED Clinical Summary Person Information Name: EDGAR NUÑEZ/[place] Age: 17 Years : 2005 Sex: Male Language: French PCP: JAYDA SEBASTIAN MD Marital Status: Single Visit Id: Visit Reason: Back pain; LOWER BACK PAIN Speciality: Acuity: 4 Enc Type: Emergency Med Service: Emergency Arrival: 09/27/2022 16:27:46 Discharge: 09/27/2022 19:41:17 LOS: 000 03:14 Checkin: 09/27/2022 16:27:46 Checkout: 09/27/2022 19:41:17 Dispo Type: Home (Routine DC) EVENTS: Event Name Event Status Request Date/Time Start Date/Time Complete Date/Time Arrive Complete 09/27/2022 16:27:46 09/27/2022 16:27:46 09/27/2022 16:27:46 Document Home Meds Request 09/27/2022 16:27:46 Triage Complete 09/27/2022 16:27:46 09/27/2022 16:43:06 09/27/2022 16:43:06 Bed Assign Complete 09/27/2022 16:43:17 09/27/2022 16:43:17 09/27/2022 16:43:17 Dr Exam Complete 09/27/2022 16:43:17 09/27/2022 16:43:47 09/27/2022 16:43:47 RN Exam Complete 09/27/2022 16:43:17 09/27/2022 16:45:40 09/27/2022 16:45:40 Registration Complete 09/27/2022 16:43:47 09/27/2022 17:06:53 09/27/2022 17:06:53 Dr Exam Complete 09/27/2022 16:48:06 09/27/2022 16:48:06 09/27/2022 16:48:06 Dr Exam Complete 09/27/2022 16:58:28 09/27/2022 16:58:28 09/27/2022 16:58:28 Reg Complete Request 09/27/2022 17:06:53 MRI Complete 09/27/2022 17:30:39 09/27/2022 18:01:15 09/27/2022 18:35:07 Meds Admin Complete 09/27/2022 19:22:46 09/27/2022 19:32:29 Discharge Complete 09/27/2022 19:24:22 09/27/2022 19:41:28 09/27/2022 19:41:28 Transfer Complete 09/27/2022 19:41:28 09/27/2022 19:41:28 09/27/2022 19:41:28 ADDRESS: [address] [place] [phone] PHYS DOC NOTES: MEDICAL INFORMATION: Prescriptions Given: New Medications [id number], [address] [place], [place] [id number], [phone] lidocaine topical (Lidoderm 5% Patch) 1 Patches Topical every day. apply 12 hours on and 12 hours off daily. Refills: 0. naproxen (Naprosyn 500 mg Tab) 1 Tablets By Mouth 2 times a day. Refills: 0. Medications to Continue with No Changes Other Medications diphenhydrAMINE (Benadryl 25 mg Cap) 1 -2 caps By Mouth 3 times a day as needed for itching. Refills: 0. PATIENT EDUCATION INFORMATION: Instructions: Chronic Back Pain Follow up: With: Address: When: [facility] Physical Therapy Department In 3 days 09/30/2022 With: Address: When: JAYDA SEBASTIAN [address] [place], [place] [phone] Business (1) In 3 days DIAGNOSIS: Chronic back pain; Other chronic pain [facility] ED Patient Education Noteon 09-27-2022 ED Patient Education Note Orthopedics Chronic Back Pain When back pain lasts longer than 3 months, it is called chronic back pain.?The cause of your back pain may not be known. Some common causes include: ? Wear and tear (degenerative disease) of the bones, ligaments, or disks in your back. ? Inflammation and stiffness in your back (arthritis). People who have chronic back pain often go through certain periods in which the pain is more intense (flare-ups). Many people can learn to manage the pain with home care. Follow these instructions at home: Pay attention to any changes in your symptoms. Take these actions to help with your pain: Activity ? Avoid bending and other activities that make the problem worse. ? Maintain a proper position when standing or sitting: ? When standing, keep your upper back and neck straight, with your shoulders pulled back. Avoid slouching. ? When sitting, keep your back straight and relax your shoulders. Do not round your shoulders or pull them backward. ? Do not sit or muffler installer one place for long periods of time. ? Take brief periods of rest throughout the day. This will reduce your pain. Resting in a lying or standing position is usually better than sitting to rest. ? When you are resting for longer periods, mix in some mild activity or stretching between periods of rest. This will help to prevent stiffness and pain. ? Get regular exercise. Ask your health care provider what activities are safe for you. ? Do not lift anything that is heavier than 10 lb (4.5 kg). Always use proper lifting technique, which includes: ? Bending your knees. ? Keeping the load close to your body. ? Avoiding twisting. ? Sleep on a firm mattress in a comfortable position. Try lying on your side with your knees slightly bent. If you lie on your back, put a pillow under your knees. Managing pain ? If directed, apply ice to the painful area. Your health care provider may recommend applying ice during the first 24?48 hours after a flare-up begins. ? Put ice in a plastic bag. ? Place a towel between your skin and the bag. ? Leave the ice on for 20 minutes, 2?3 times per day. ? If directed, apply heat to the affected area as often as told by your health care provider. Use the heat source that your health care provider recommends, such as a moist heat pack or a heating pad. ? Place a towel between your skin and the heat source. ? Leave the heat on for 20?30 minutes. ? Remove the heat if your skin turns bright red. This is especially important if you are unable to feel pain, heat, or cold. You may have a greater risk of getting burned. ? Try soaking in a warm tub. ? Take ducl-prm-jhqtkdd and prescription medicines only as told by your health care provider. ? Keep all follow-up visits as told by your health care provider. This is important. Contact a health care provider if: ? You have pain that is not relieved with rest or medicine. Get help right away if: ? You have weakness or numbness in one or both of your legs or feet. ? You have trouble controlling your bladder or your bowels. ? You have nausea or vomiting. ? You have pain in your abdomen. ? You have shortness of breath or you faint. This information is not intended to replace advice given to you by your health care provider. Make sure you discuss any questions you have with your health care provider. Document Released: 2005 Document Revised: 11/27/2019 Document Reviewed: 02/13/2018 Elsevier Patient Education ? 2019 01[employer] [facility] ED Patient Summaryon 023 ED Patient Summary [address] [address] Patient Discharge Instructions Person Information Name: EDGAR NUÑEZ Age: 17 Years Arrival Date: 09/27/2022 16:27:46 Discharge Diagnosis: Chronic back pain; Other chronic pain Primary Care Physician: JAYDA SEBASTIAN MD Provider Information Primary Provider: Natasha North M.D. [address] Justice:Johnny Saez PA-C The exam and treatment you received in the Emergency Department were for an urgent problem and are not intended as complete care. It is important that you follow up with a doctor, nurse practitioner, or physician?s pediatric physical therapy assistant for ongoing care. If your symptoms become worse or you do not improve as expected and you are unable to reach your usual health care provider, you should return to the Emergency Department. We are available 24 hours a day. NUÑEZ, TAMEKABETHEL has been given the following list of patient education materials, prescriptions and follow-up instructions: Follow-up Instructions: With: Address: When: [facility] Physical Therapy Department In 3 days 09/30/2022 With: Address: When: JAYDA SEBASTIAN [address] [place] [phone] [facility] (1) In 3 days In the event that this physician does not participate in your insurance network, please consult with your insurance company to find a nearby participating provider. Patient Education Materials: Chronic Back Pain A MESSAGE TO ALL PATIENTS REGARDING OPIOIDS PRESCRIPTION OPIOIDS: WHAT YOU NEED TO KNOW Prescription opioids can be used to help relieve eygzybbh-gv-fnqeha pain and are often prescribed following a surgery or injury, or for certain health conditions. These medications can be an important part of the treatment but also come with serious risks. It is important to work with your healthcare provider to make sure you are getting the safest, most effective care. WHAT ARE THE RISKS AND SIDE EFFECTS OF OPIOID USE? Prescription opioids carry serious risks of addiction and overdose, especially with prolonged use. An opioid overdose, often marked by slowed breathing, can cause sudden . The use of prescription opioids can have a number of side effects as well, even when taken as directed: ? Tolerance?meaning you might need to take more of the medication for the same pain relief ? Physical dependence?meaning you have symptoms of withdrawal when a medication is stopped ? Increased sensitivity to pain ? Constipation ? Nausea, vomiting, and dry mouth ? Sleepiness and dizziness ? Confusion ? Depression ? Low levels of testosterone that can result in lower sex drive, energy, and strength ? Itching and sweating RISKS ARE GREATER WITH: ? History of drug misuse, substance use disorder, or overdose ? Mental health conditions (such as depression or anxiety) ? Sleep apnea ? Older age (65 years and older) ? Avoid alcohol while taking prescription opioids. Also, unless specifically advised by your health care provider, medications to avoid include: ? Benzodiazepines (such as Xanax or Valium) ? Muscle relaxants (such as Soma or Flexeril) ? Hypnotics (such as Ambien or Lunesta) ? Other prescription opioids KNOW YOUR OPTIONS Talk to your health care provider about ways to manage your pain that don?t involve prescription opioids. Some of these options may actually work better and have fewer risks and side effects. Options may include: ? Pain relievers such as acetaminophen, ibuprofen, and naproxen ? Some medication that are also used for depression or seizures ? Physical therapy and exercise ? Cognitive behavioral therapy, a psychological, goal-directed approach, in which patients learn how to modify physical, behavioral, and emotional triggers of pain and stress. IF YOU ARE PRESCRIBED OPIOIDS FOR PAIN: ? Never take opioids in greater amounts or more often than prescribed. ? Follow up with your primary health care provider. o Work together to create a plan on how to manage your pain. o Talk about ways to help manage your pain that don?t involve prescription opioids. o Talk about any and all concerns and side effects. ? Help prevent misuse and abuse o Never sell or share prescription opioids. o Never use another person?s prescription opioids. ? Store prescription opioids in a secure place and out of reach of others (this may include visitors, children, friends, and family). ? Safely dispose of unused prescription opioids: Find your community drug take-back program or your pharmacy mail-back program, or flush them down the toilet, following guidance from the Food and Drug Administration (www.fda.gov/Drugs/Res ourcesForYou). ? Visit www.cdc.gov/drugoverdo se to learn about the risks of opioids abuse and overdose. ? If you believe you may be struggling with addiction, tell your health caregiver assisted living and (more content not included)... Normal [facility] MRI Spine Lumbar w/o Contras ton 09-27-2022 MRI Spine Lumbar w/o Contrast Exam Date/Time: 09/27/2022 18:35 EST Reason for Exam: Cord compression Report IMPRESSION: DISC DISEASE AT L4-L5 AND L5-S1 DETAILED. EXAM: MRI of the lumbar spine without contrast History: Mid back pain radiating to the low back increasing for 2 weeks. Cord compression. Technique: Multiplanar multisequence MRI of the lumbar spine was obtained without intravenous contrast. Comparison: None available Findings: The conus medullaris ends normally. The alignment of the lumbar spine is anatomic. The vertebral body heights are well maintained. There is no aggressive bone marrow signal abnormality. 7 mm hyperintense T1/T2 structure within S3 is most compatible with an intraosseous hemangioma. This desiccation at L4-L5 and L5-S1. Minimal intervertebral disc height loss at L4-L5 and L5-S1. L1-L2: No significant disc bulge, spinal canal or neuroforaminal stenosis. L2-L3: No significant disc bulge, spinal canal or neuroforaminal stenosis. L3-L4: No significant disc bulge, spinal canal or neuroforaminal stenosis. L4-L5: Minimal disc bulge with tiny central annular fissure. No neuroforaminal or spinal canal stenosis. L5-S1: Small disc bulge with superimposed left foraminal disc protrusion resulting in moderate left neuroforaminal stenosis. No spinal canal stenosis. Visualized paravertebral soft tissues appear within normal limits as visualized. A 5 mm hyperintense T2 structure of the right kidney is most likely a cyst. At least 4 additional smaller hyperintense T2 structures of the right kidney also most likely Report represent cysts. FINAL REPORT Dictated: 09/27/2022 6:45 pm Jose Oliva DO Signed (Electronic Signature): 09/27/2022 6:45 pm Signed by: Jose Oliva DO Transcribed by: GURPREET Technologist: STEVEN Technical Comments None [facility] RAD - MRI Screening Formon 0 09-27-2022 RAD - MRI Screening Form [id number] CD:127 [facility] SARS-CoV-2 (COVID-19) RNA ENEDELIA+probe Ql (Unsp spec) Not detected Normal NOT DETECTED [facility] Comment on above: Result Comment: This test is not yet approved or cleared by the [place] FDA. When there are no FDA-approved or cleared tests available, and other criteria are met, FDA can make tests available under an emergency access mechanism called an Emergency Use Authorization (EUA). The EUA for this test is supported by the [place] Blind Worker of Health and Human Service's (HHS's) declaration that circumstances exist to justify the emergency use of in vitro diagnostics for the detection and/or diagnosis of the virus that causes COVID-19. This EUA will remain in effect (meaning this test can be used) for the duration of the COVID-19 declaration justifying emergency of IVDs, unless it is terminated or revoked by FDA (after which the test may no longer be used). When diagnostic testing is negative, the possibility of a false negative should be considered in the context of a patient's recent exposures and the presence of clinical signs and symptoms consistent with SARS-CoV-2. Performed By: #### [facility] #### [facility] [address] [address] [address] James Perkins Progress Noteon 11-14-2021 Binding Machine Operator Authentication Interface Message Text NEUROSURGERY CLINIC - NEW PATIENT: DATE OF SERVICE: 11/14/2021 PRIMARY CARE PROVIDER: Jayda Sebastian MD ATTENDING PROVIDER: Ryann Colvin PA-C CHIEF COMPLAINT: Back pain, abnormal MRI Chief Complaint Patient presents with New Patient Visit Pt states that he has severe back pain. Patient here with patient mom. Patient referred by PCP. Patient reports growing up with back pain. Patient reports that pain has worsened in the past 1-2 years. Patient reports LB pain, neck pain, balance/coordination concerns, with gait abnormalities. Patient reports bilateral tingling of legs and feet. Patient reports tingling happened when sitting down. Mom reports using chiropractor and advil for pain management. Bowel changes reported. HISTORY OF PRESENT ILLNESS: Edgar Nuñez is 16 y.o. male with a REVIEW OF SYSTEMS: ROS MEDICAL/SURGICAL HISTORY Patient Active Problem List Diagnosis Chronic back pain Past Medical History: Diagnosis Date Chronic back pain 11/16/2021 Past Surgical History: Procedure Laterality Date NO PAST SURGICAL HISTORY HISTORY: History Delivery Method: , Unspecified Term ; emergency due to nuchal cord, distress; home with mother DRUG/FOOD ALLERGIES: No Known Allergies MEDICATIONS: Current Outpatient Medications: GLUCOSAMINE-CHONDROITI N PO, Take by mouth Took for awhile, not helping, Disp: , Rfl: SOCIAL/FAMILY HISTORY: Social History Socioeconomic History Marital status: Single Spouse name: Not on file Number of children: Not on file Years of education: Not on file Highest education level: Not on file Occupational History Not on file Tobacco Use Smoking status: Not on file Smokeless tobacco: Not on file Substance and Sexual Activity Alcohol use: Not on file Drug use: Not on file Sexual activity: Not on file Other Topics Concern Not on file Social History Narrative Not on file Social Determinants of Health Housing Stability: Not on file No family history on file. VITAL SIGNS: Vitals: 11/14/21 1135 BP: 123/63 Pulse: 96 Temp: 36.7 C (98.1 F) TempSrc: Temporal Weight: (!) 94.8 kg Height: (!) 190.4 cm PHYSICAL EXAM: Gen: Awake, alert; no acute distress, sitting up on exam table Head: Normocephalic, atraumatic EENT: Conjunctiva clear, right lower lid mild redness; TM clear bilaterally, pearly white; no erythema; canal without exudate or erythema; 4+ tonsillar hypertrophy without exudate, unable to visualize posterior pharynx; right posterior cervical lymphadenopathy slightly firm, roughly 1.5cm in size, mildly tender to palpation; no other prominent cervical, submental, submandibular, submental, posterior auricular, occipital, supraclavicular, axillary lymphadenopathy Resp: Regular rate and pattern of breathing, symmetric chest rise Msk: L>R trap pain, paraspinal pain; midline mid thoracic pain; mild left lumbar paraspinal pain to palpation; no midline lumbar pain; mild right SI joint pain; no palpable stepoff or curvature of C/T/L spine Neuro: II: pupils reacted appropriately to direct and consensual light stimulus III, IV, : all extraocular movements were intact and no nystagmus noted V: facial sensation was normal and symmetrical and normal bite/chewing VII: eye closure was normal bliaterally and facial contours and movement were symmetrical VIII: patient reported slightly decreased hearing on right side compared to left; patient turned to sound bilaterally IX, X: unable to visualize palate due to tonsillar hypertrophy XI: neck with full ROM, shoulder shrug strength appeared normal bilaterally and neck rotation against resistance showed normal sternocleidomastoid strength bilaterally XII: tongue protrusion was midline, no fasciculations noted Grasp strength 5/5 bilaterally Shoulder abduction 5/5 bilaterally Shoulder adduction 5/5 bilaterally Shoulder internal rotation 5/5 bilaterally Shoulder external rotation 5/5 bilaterally Forearm Flexion 5/5 bilaterally Forearm Extension 5/5 bilaterally Forearm Pronation 5/5 bilaterally Forearm Supination 5/5 bilaterally Digit (and thumb) Adduction 5/5 bilaterally Digits (and thumb) Abduction 5/5 bilaterally Wrist Flexion 5/5 bilaterally Wrist Extension 5/5 bilaterally Knee flexion 5/5 bilaterally Knee extension 5/5 bilaterally Plantarflexion 5/5 bilaterally Dosiflexion 5/5 bilaterally Ankle pronation 5/5 bilaterally Ankle supination 5/5 bilaterally Hip Flexion 5/5 bilaterally EHL 5/5 bilaterally Hip Adduction 5/5 bilaterally Hip Abduction 5/5 bilaterally Bi, Br, Ach, Pat 2+ bilaterally and symmetric Toes downgoing on the left, down to flat on right Proprioception of UE and LE normal bilaterally Sensation to LT and PP intact in UE bilaterally to deltoid Sensation of upper lateral calf bilaterally with atleast 50% errors bilaterally; however above and below this area on both leg (more content not included)... Normal [facility] Brit 11-02-2021 KAYYN Telephone (SPNSMN) TOOTAMEKABETHEL ([id number]) 5 M UPA Date Time Provider Department 11/02/21 RADHA REYNOLDS SPNSMN During your visit today, we recorded the following information about you: Evita Sahu RN 11/02/2021 3:44 PM Signed Neuro SPINE CARE COORDINATION QUICK NOTE Pt was referred to Dr Reynolds for evaluation of spine issues. Spoke to pt's mother and she declined an appt. She will pursue care with Peds Neurosurgery in [place]. Allergies As of Date: 11/02/2021 (No Known Allergies) Date Reviewed: 11/01/2021 Reviewed by: Misty Allen MA - Fully Assessed Reason for Visit: Appointment [[id number]] Problem List As Of Date: 11/02/2021 (None) Encounter Status:Closed by EVITA SAHU on 11/02/[address] [facility] CNCOon 11-01-2021 CNCO Letter Text Normal [facility] CNOVon 11-01-2021 CNOV Office Visit (ORTPMN ) EDGAR NUÑEZ ([id number]) 5 M UPA Date Time Provider Department 11/01/21 11:45 AM REN JOAQUIN ORHANY During your visit today, we recorded the following information about you: Ren Joaquin MD 11/01/2021 12:21 PM Signed ORTHOPAEDIC SURGERY Referring Physician: Jayda Sebastian [address] [facility] [address] CC: Back pain and leg pain HPI: Edgar Nuñez is a pleasant 16 year old male who is here with the chief complaint of back pain and leg pain. He is 6 foot 4 and loves playing football he is a freshman. He has had back pain for as long as he can remember. 2 weeks ago he had an MRI which is showing disc herniation mainly L5-S1 but a small 1 at L4-5. He states anytime he sits both legs can go numb. He has not had bowel or bladder change. He states that the back pain is about 70% leg pain 30% in its bilateral. He has been told that he cannot do football activities and here today to see what he can do and where to go with this. He has been avoiding deadlifts. He states that squats creates pain. Here today for further assessment. No past medical history on file. No past surgical history on file. No family history on file. Social History Tobacco Use - Smoking status: Not on file - Smokeless tobacco: Not on file Substance Use Topics - Alcohol use: Not on file - Drug use: Not on file ALLERGIES No Known Allergies No current outpatient medications on file prior to visit. No current facility-administered medications on file prior to visit. Review of systems: General: no fever, chills, night sweats Skin: no rashes Head: no headaches Eyes: no vision problems Ears: no recent ear infections Nose: no recent rhinorrhea Mouth/throat: No throat pain Respiratory: no cough Cardiovascular: no cyanosis Gastrointestinal: denies N/V Genitourinary: no blood in urine Endocrine: no heat intolerance Musculoskeletal: SEE HPI Skin/lymphatics: no easy bruising Neuropsychiatric: no tearfulness All other systems negative other than those listed above Physical Exam: On examination today he is a nice 16-year-old male who is quite tall and fit. He is able to toe walk heel walk duck walk and jump with good strength. Tender to palpation throughout the lower back paraspinal musculature. Straight leg raise creates back pain and some mild leg pain. Good overall strength identified today. He is in no acute distress. No erythema or fluctuance identified. No skin irritation or breakdown. Some mild acne identified. Imaging: Radiographs are reviewed showing no evidence spondylolysis nor spondylolisthesis and MRI shows a moderate disc herniation L5-S1 and less so at 4- L5. Assessment/Plan: Diagnosis: Back pain with radiculopathy with disc herniation. Plan: We have reviewed in detail overall findings and expectations. We have reviewed the disc herniation. We reviewed concerns associated with this. We have discussed operative and nonoperative management for this. We have discussed the benefits of core stretching and strengthening. I would also like to get him involved with my colleagues Dr. Sebastian or Dr. Motley for their thoughts associated with surgical excision of the herniated disc. Ren Joaquin MD Referring Provider: JAYDA SEBASTIAN [[id number]] Allergies As of Date: 11/01/2021 (No Known Allergies) Date Reviewed: 11/01/2021 Reviewed by: Misty Allen MA - Fully Assessed Reason for Visit: New [[id number]] Primary Visit Diagnosis:Herniated lumbar intervertebral disc [M51.26] Problem List As Of Date: 11/01/2021 (None) Encounter Status:Closed by REN JOAQUIN on 11/01/21 [facility] 10-27-2021 CNPN Telephone (NEUSPM) EDGAR NUÑEZ ([id number]) 05 [facility] Date Time Provider Department 10/27/21 [facility] WIL[facility] During your visit today, we recorded the following information about you: Davina Hicks 10/27/2021 11:07 AM Signed Patient on waitlist. Physician referral Received a REFER A PATIENT FAX from Jayda Sebastian MD's office referring the patient to be seen in Spine surgery for herniated discs. Referral and/or order can be found in Scan Document dated 10/21/21 Please notify Asia at Dr. Jayda Sebastian MD's ; Cliff Gutierrez RN 10/31/2021 10:10 AM Signed Called and spoke with mom. Provided phone number to schedule with Dr. Hess. Mom understands and is agreeable, no further questions/concerns at this time. Cliff Gutierrez RN Allergies As of Date: 10/27/2021 (Not on File) Date Reviewed: Never Reviewed Reason for Visit: Future Appointment [256] Cmt: patient on waitlist. Problem List As Of Date: 10/27/2021 (None) Encounter Status:Closed by CLIFF GUTIERREZ on 10/31/[address] [facility] Vital Signs Date Time Vital Sign Value Performing Clinician Facility 04-23-2025 12:58-0400 Body height 193.04 cm Karina Carrera APRN Work Phone: [facility] 04-23-2025 12:58-0400 Body mass index (BMI) [Percentile] Per age and sex 87.6 % Karina Carrera APRN Work Phone: [facility] 04-23-2025 12:58-0400 Body mass index (BMI) [Ratio] 27.5 kg/m2 Karina Carrera APRN Work Phone: [facility] 04-23-2025 12:58-0400 Body temperature 96.5 [degF] Karina Carrera APRN Work Phone: [facility] 04-23-2025 12:58-0400 Body weight 102.51 kg Karina Carrera APRN Work Phone: [facility] 04-23-2025 12:58-0400 Diastolic blood pressure 74 mm[Hg] Karina Carrera APRN Work Phone: [facility] 04-23-2025 12:58-0400 Heart rate 72 /min Karina Carrera APRN Work Phone: [facility] 04-23-2025 12:58-0400 SaO2% (BldA) [Mass fraction] 98 % Karina Carrera APRN Work Phone: [facility] 04-23-2025 12:58-0400 Systolic blood pressure 118 mm[Hg] Karina Carrera APRN Work Phone: [facility] 12-31-2024 14:38-0400 Body height 193.04 cm [facility] 12-31-2024 14:38-0400 Body mass index (BMI) [Percentile] Per age and sex 87.7 % [facility] 12-31-2024 14:38-0400 Body mass index (BMI) [Ratio] 27.3 kg/m2 [facility] 12-31-2024 14:38-0400 Body temperature 99.8 [degF] [facility] 12-31-2024 14:38-0400 Body weight 102.05 kg [facility] 12-31-2024 14:38-0400 Diastolic blood pressure 58 mm[Hg] [facility] 12-31-2024 14:38-0400 Heart rate 80 /min [facility] 12-31-2024 14:38-0400 SaO2% (BldA) [Mass fraction] 98 % [facility] 12-31-2024 14:38-0400 Systolic blood pressure 116 mm[Hg] [facility] 12-08-2024 13:28-0400 Body height 193.04 cm [facility] 12-08-2024 13:28-0400 Body mass index (BMI) [Percentile] Per age and sex 87.5 % [facility] 12-08-2024 13:28-0400 Body mass index (BMI) [Ratio] 27.2 kg/m2 [facility] 12-08-2024 13:28-0400 Body temperature 98.9 [degF] [facility] 12-08-2024 13:28-0400 Body weight 101.6 kg [facility] 12-08-2024 13:28-0400 Diastolic blood pressure 60 mm[Hg] [facility] 12-08-2024 13:28-0400 Heart rate 85 /min [facility] 12-08-2024 13:28-0400 SaO2% (BldA) [Mass fraction] 98 % [facility] 12-08-2024 13:28-0400 Systolic blood pressure 106 mm[Hg] [facility] 10-27-2024 14:37-0400 Body height 193.04 cm Karina Carrera ADJUDICATION SPECIALIST Work Phone: [facility] 10-27-2024 14:37-0400 Body mass index (BMI) [Percentile] Per age and sex 78 % Karina Carrera ADJUDICATION SPECIALIST Work Phone: [facility] 10-27-2024 14:37-0400 Body mass index (BMI) [Ratio] 25.4 kg/m2 Karina Carrera ADJUDICATION SPECIALIST Work Phone: [facility] 10-27-2024 14:37-0400 Body temperature 97.5 [degF] Karina Carrera ADJUDICATION SPECIALIST Work Phone: [facility] 10-27-2024 14:37-0400 Body weight 94.8 kg Karina Carrera ADJUDICATION SPECIALIST Work Phone: [facility] 10-27-2024 14:37-0400 Diastolic blood pressure 78 mm[Hg] Karina Carrera APRN Work Phone: [facility] 10-27-2024 14:37-0400 Heart rate 74 /min Karina Carrera APRN Work Phone: [facility] 10-27-2024 14:37-0400 SaO2% (BldA) [Mass fraction] 98 % Karina Carrera ADJUDICATION SPECIALIST Work Phone: [facility] 10-27-2024 14:37-0400 Systolic blood pressure 126 mm[Hg] Karina Carrera APRN Work Phone: [facility] 08-25-2024 13:51-0500 Body height 193.04 cm Karina Carrera APRN Work Phone: [facility] 08-25-2024 13:51-0500 Body mass index (BMI) [Percentile] Per age and sex 78.2 % Karina Carrera APRN Work Phone: [facility] 08-25-2024 13:51-0500 Body mass index (BMI) [Ratio] 25.3 kg/m2 Karina Mercadoharithasabinojace ADJUDICATION SPECIALIST Work Phone: [facility] 08-25-2024 13:51-0500 Body temperature 97.8 [degF] Karina Mercadostephanie ADJUDICATION SPECIALIST Work Phone: [facility] 08-25-2024 13:51-0500 Body weight 94.51 kg Karina Mercadoharithasabinojace ADJUDICATION SPECIALIST Work Phone: [facility] 08-25-2024 13:51-0500 Diastolic blood pressure 64 mm[Hg] Karina Debi ADJUDICATION SPECIALIST Work Phone: [facility] 08-25-2024 13:51-0500 Heart rate 87 /min Karina Mercadostephanie ADJUDICATION SPECIALIST Work Phone: [facility] 08-25-2024 13:51-0500 SaO2% (BldA) [Mass fraction] 97 % Karina Mercadostephanie ADJUDICATION SPECIALIST Work Phone: [facility] 08-25-2024 13:51-0500 Systolic blood pressure 114 mm[Hg] Karina Mercadostephanie ADJUDICATION SPECIALIST Work Phone: [facility] 08-15-2024 03:48-0500 Diastolic blood pressure 51 mm[Hg] Karinaeyad Carrera ADJUDICATION SPECIALIST Work Phone: [facility] 08-15-2024 03:48-0500 Heart rate 46 /min Karina Debi ADJUDICATION SPECIALIST Work Phone: [facility] 08-15-2024 03:48-0500 Respiratory rate 16 /min Karina Debi ADJUDICATION SPECIALIST Work Phone: [facility] 08-15-2024 03:48-0500 SaO2% (BldA) [Mass fraction] 98 % Karinaeyad Carrera ADJUDICATION SPECIALIST Work Phone: [facility] 08-15-2024 03:48-0500 Systolic blood pressure 107 mm[Hg] Karina Carrera ADJUDICATION SPECIALIST Work Phone: [facility] 08-14-2024 23:55-0500 Body height 193.04 cm Karina Karunaacher ADJUDICATION SPECIALIST Work Phone: [facility] 08-14-2024 23:55-0500 Body temperature 97.9 [degF] Karinaeyad Beckmanacher ADJUDICATION SPECIALIST Work Phone: [facility] 08-14-2024 23:55-0500 Body weight 94.1 kg Karina Harrisr ADJUDICATION SPECIALIST Work Phone: [facility] 05-22-2024 11:29-0400 Body height 193.04 cm ADJUDICATION SPECIALIST Karinaeyad Mercadorbacher Work Phone: [facility] 05-22-2024 11:29-0400 Body mass index (BMI) [Percentile] Per age and sex 84.7 % ADJUDICATION SPECIALIST Karina Jessrbacher Work Phone: [facility] 05-22-2024 11:29-0400 Body mass index (BMI) [Ratio] 26.2 kg/m2 ADJUDICATION SPECIALIST Karina Jessrbacher Work Phone: [facility] 05-22-2024 11:29-0400 Body temperature 97.5 [degF] ADJUDICATION SPECIALISTGladis Beckmanacher Work Phone: [facility] 05-22-2024 11:29-0400 Body weight 97.6 kg ADJUDICATION SPECIALISTGladis Mercadorbacher Work Phone: [facility] 05-22-2024 11:29-0400 Diastolic blood pressure 68 mm[Hg] REYES Mercadorbacher Work Phone: [facility] 05-22-2024 11:29-0400 Heart rate 63 /min ADJUDICATION SPECIALISTGladis Beckmanacher Work Phone: [facility] 05-22-2024 11:29-0400 SaO2% (BldA) [Mass fraction] 98 % ADJUDICATION SPECIALISTGladis Beckmanacher Work Phone: [facility] 05-22-2024 11:29-0400 Systolic blood pressure 110 mm[Hg] REYES Beckmanacher Work Phone: [facility] 04-25-2024 09:36-0400 Body height 193.04 cm ADJUDICATION SPECIALISTGladis Beckmanacher Work Phone: [facility] 04-25-2024 09:36-0400 Body mass index (BMI) [Percentile] Per age and sex 86.9 % REYES Beckmanacher Work Phone: [facility] 04-25-2024 09:36-0400 Body mass index (BMI) [Ratio] 26.6 kg/m2 REYES Carrera Work Phone: [facility] 04-25-2024 09:36-0400 Body weight 99.1 kg ADJUDICATION SPECIALISTGladis Beckmanacher Work Phone: [facility] 04-25-2024 09:36-0400 Diastolic blood pressure 60 mm[Hg] REYES Beckmanacher Work Phone: [facility] 04-25-2024 09:36-0400 Heart rate 66 /min ADJUDICATION SPECIALISTGladis Beckmanacher Work Phone: [facility] 04-25-2024 09:36-0400 Respiratory rate 18 /min REYES Beckmanacher Work Phone: [facility] 04-25-2024 09:36-0400 SaO2% (BldA) [Mass fraction] 98 % REYES Beckmanachejace Work Phone: [facility] 04-25-2024 09:36-0400 Systolic blood pressure 120 mm[Hg] REYES Iglesiasr Work Phone: [facility] 04-17-2024 17:52-0400 Body height 193.04 cm ADJUDICATION SPECIALISTGladis Collins Jessrbacher Work Phone: [facility] 04-17-2024 17:52-0400 Body temperature 98.3 [degF] ADJUDICATION SPECIALIST Karina Jessrbacher Work Phone: [facility] 04-17-2024 17:52-0400 Body weight 95.7 kg ADJUDICATION SPECIALIST Karina Jessrbacher Work Phone: [facility] 04-17-2024 17:52-0400 Diastolic blood pressure 57 mm[Hg] ADJUDICATION SPECIALIST Karina Jessrbacher Work Phone: [facility] 04-17-2024 17:52-0400 Heart rate 73 /min ADJUDICATION SPECIALIST Karina Jessrbacher Work Phone: [facility] 04-17-2024 17:52-0400 Respiratory rate 16 /min ADJUDICATION SPECIALIST Karina Jessrbacher Work Phone: [facility] 04-17-2024 17:52-0400 SaO2% (BldA) [Mass fraction] 100 % ADJUDICATION SPECIALIST Karina Jessrbacher Work Phone: [facility] 04-17-2024 17:52-0400 Systolic blood pressure 122 mm[Hg] ADJUDICATION SPECIALIST Karina Jessrbacher Work Phone: [facility] 02-07-2024 12:36-0400 Body height 193.04 cm ADJUDICATION SPECIALIST Karina Jessrbacher Work Phone: [facility] 02-07-2024 12:36-0400 Body temperature 97.7 [degF] ADJUDICATION SPECIALIST Karina Jessrbacher Work Phone: [facility] 02-07-2024 12:36-0400 Body weight 102.2 kg ADJUDICATION SPECIALISTGladis MckinleyKarina Jessrbacher Work Phone: [facility] 02-07-2024 12:36-0400 Diastolic blood pressure 67 mm[Hg] REYES Carrera Work Phone: [facility] 02-07-2024 12:36-0400 Heart rate 60 /min ADJUDICATION SPECIALIST Karina Karunaachejace Work Phone: [facility] 02-07-2024 12:36-0400 Respiratory rate 20 /min ADJUDICATION SPECIALISTGladis MckinleyKarina Debi Work Phone: [facility] 02-07-2024 12:36-0400 SaO2% (BldA) [Mass fraction] 100 % REYES Gilesnifer Debi Work Phone: [facility] 02-07-2024 12:36-0400 Systolic blood pressure 165 mm[Hg] REYES Gilesniadria Carrera Work Phone: [facility] 11-23-2023 10:14-0400 Body height 189.87 cm [facility] 11-23-2023 10:14-0400 Body mass index (BMI) [Percentile] Per age and sex 91.5 % [facility] 11-23-2023 10:14-0400 Body mass index (BMI) [Ratio] 27.6 kg/m2 [facility] 11-23-2023 10:14-0400 Body weight 99.79 kg [facility] 11-23-2023 10:14-0400 Diastolic blood pressure 64 mm[Hg] [facility] 11-23-2023 10:14-0400 Heart rate 87 /min [facility] 11-23-2023 10:14-0400 SaO2% (BldA) [Mass fraction] 98 % [facility] 11-23-2023 10:14-0400 Systolic blood pressure 110 mm[Hg] [facility] 10-01-2023 11:30-0500 Body height 189.87 cm Karina Carrera Other [employer] Other 10-01-2023 11:30-0500 Body mass index (BMI) [Ratio] 28.18 kg/m2 Karina Mercadostephanie Other [employer] Other 10-01-2023 11:30-0500 Body weight 101.61 kg Karina Iglesiasjace Other [employer] Other 10-01-2023 11:30-0500 Diastolic blood pressure 66 mm[Hg] Karina Mercadostephanie Other [employer] Other 10-01-2023 11:30-0500 SaO2% (BldA) [Mass fraction] 98 % Karina Mercadostephanie Other [employer] Other 10-01-2023 11:30-0500 Systolic blood pressure 118 mm[Hg] Karina Iglesiasjace Other [employer] Other 12-26-2022 11:28-0400 Body temperature 98.06 [degF] [employer] [facility] 12-26-2022 11:28-0400 bodymassindex 1.20 [employer] [facility] Comment on above: Result Comment: ^~:!ZScore Source -[facility] 12-26-2022 11:28-0400 Heart rate 62 /min Silvia OrzeValopaa [facility] 12-26-2022 11:28-0400 Height/Length Percentile 99.54 Silvia OrzeValopaa [facility] Comment on above: Result Comment: ^~:!Percentile Source -[facility] 12-26-2022 11:28-0400 Height/Length Z-Score 2.60 Silvia OrzeValopaa [facility] Comment on above: [facility]: [facility] 12-26-2022 11:28-0400 SaO2% (BldA) [Mass fraction] 98 % Silvia EverettJiff [facility] 12-26-2022 11:28-0400 weight 1.99 Silvia EverettJiff [facility] Comment on above: Result Comment: ^[facility] 12-26-2022 11:28-0400 Weight Percentile 97.65 % [facility] Comment on above: Result Comment: ^~:!Percentile Source -[facility] 10-25-2022 17:22-0500 Body temperature 98.24 [degF] [facility] 10-25-2022 17:22-0500 bodymassindex 1.02 [facility] Comment on above: Result Comment: ^[facility] 10-25-2022 17:22-0500 Diastolic blood pressure 76 mm[Hg] [facility] 10-25-2022 17:22-0500 Heart rate 67 /min [facility] 10-25-2022 17:22-0500 Height/Length Percentile 99.34 [facility] Comment on above: Result Comment: ^~:!Percentile Source -[facility] [place] 10-25-2022 17:22-0500 Height/Length Z-Score 2.48 [facility] Comment on above: Result Comment: ^[facility] 10-25-2022 17:22-0500 Respiratory rate 16 /min [facility] 10-25-2022 17:22-0500 SaO2% (BldA) [Mass fraction] 100 % [facility] 10-25-2022 17:22-0500 Systolic blood pressure 131 mm[Hg] [facility] 10-25-2022 17:22-0500 weight 1.82 [facility] Comment on above: Result Comment: ^~:![facility] 10-25-2022 17:22-0500 Weight Percentile 96.55 % [facility] Comment on above: Result Comment: ^~:!Debra Jordan [facility] 09-27-2022 16:37-0500 Body temperature 98.24 [degF] [facility] 09-27-2022 16:37-0500 bodymassindex 1.04 [facility] Comment on above: Result Comment: ^~:![facility] 09-27-2022 16:37-0500 Diastolic blood pressure 66 mm[Hg] [facility] 09-27-2022 16:37-0500 Heart rate 82 /min [facility] 09-27-2022 16:37-0500 Height/Length Percentile 99.37 [facility] Comment on above: Result Comment: ^~:!Debra Jordan [facility] 09-27-2022 16:37-0500 Height/Length Z-Score 2.49 [facility] Comment on above: Result Comment: ^~:![facility] 09-27-2022 16:37-0500 Respiratory rate 16 /min [facility] 09-27-2022 16:37-0500 SaO2% (BldA) [Mass fraction] 99 % [facility] 09-27-2022 16:37-0500 Systolic blood pressure 132 mm[Hg] [facility] 09-27-2022 16:37-0500 weight 1.83 [facility] Comment on above: Result Comment: ^~:![facility] 09-27-2022 16:37-0500 Weight Percentile 96.66 % Natasha [facility] Comment on above: Result Comment: ^~:!Percentile Source -[facility] [place] Encounters Encounter Date Encounter Type Care Provider Facility Start: 04-23-2025 End: 04-23-2025 ambulatory Karina Carrera APRN Work Phone: [facility] Work Phone: Start: 04-23-2025 End: 04-23-2025 Patient encounter procedure Karina Carrera APRN [facility] Work Phone: Start: 12-31-2024 End: 12-31-2024 ambulatory [facility] Work Phone: Start: 12-31-2024 End: 12-31-2024 Patient encounter procedure [facility] Work Phone: Start: 12-08-2024 End: 12-08-2024 ambulatory [facility] Work Phone: Start: 12-08-2024 End: 12-08-2024 Patient encounter procedure [facility] Phys[facility] Work Phone: Start: 10-27-2024 End: 10-27-2024 ambulatory Karina Carrera APRN Work Phone: [facility] Work Phone: Start: 10-27-2024 End: 10-27-2024 Patient encounter procedure Karina Carrera APRN Work Phone: [facility] Physician [facility] Work Phone: Start: 08-25-2024 End: 08-25-2024 ambulatory Karina Carrera APRN Work Phone: [facility] Work Phone: Start: 08-25-2024 End: 08-25-2024 Patient encounter procedure Karina Carrera [facility]N [facility] Work Phone: Start: 08-14-2024 End: 08-15-2024 Emergency department patient visit Karina Debi RODRIGUEZN Work Phone: [facility] Work Phone: Start: 05-26-2024 End: 05-26-2024 Patient encounter procedure ADJUDICATION SPECIALIST Karina Debi Work Phone: [facility] Work Phone: Start: 05-26-2024 End: 05-26-2024 ambulatory ADJUDICATION SPECIALIST Karina Debi Work Phone: [facility] Work Phone: Start: 05-22-2024 End: 05-22-2024 ambulatory ADJUDICATION SPECIALIST Karina Debi Work Phone: [facility] Work Phone: Start: 05-22-2024 End: 05-22-2024 Patient encounter procedure ADJUDICATION SPECIALIST Karina Debi [facility] Work Phone: Start: 04-25-2024 End: 04-25-2024 ambulatory ADJUDICATION SPECIALIST Karina Harrisr Work Phone: [facility] Work Phone: Start: 04-25-2024 End: 04-25-2024 Patient encounter procedure ADJUDICATION SPECIALIST Karina Harrisr [facility] Phone[facility] Work Phone: Start: 04-22-2024 End: 04-22-2024 ambulatory ADJUDICATION SPECIALIST Karina Karunaacher Work Phone: [facility] Work Phone: Start: 04-22-2024 End: 04-22-2024 Patient encounter procedure ADJUDICATION SPECIALIST Karina Karunaacher Work Phone: [facility] Work Phone: Start: 04-17-2024 End: 04-17-2024 Emergency department patient visit ADJUDICATION SPECIALISTGladis Carrera Work Phone: [facility] Work Phone: Start: 02-07-2024 End: 02-07-2024 Emergency department patient visit ADJUDICATION SPECIALIST Karina Carrera Work Phone: [facility] Work Phone: Start: 11-29-2023 End: 11-29-2023 Patient encounter procedure ADJUDICATION SPECIALISTGladis Carrera Work Phone: [facility] Work Phone: Start: 11-29-2023 End: 11-29-2023 ambulatory ADJUDICATION SPECIALISTGladis Carrera Work Phone: [facility] Work Phone: Start: 11-23-2023 End: 11-23-2023 ambulatory [facility] Work Phone: Start: 11-23-2023 End: 11-23-2023 Patient encounter procedure [facility] Phys[facility] Work Phone: Start: 10-03-2023 Non-patient / Non-visit [facility] Work Phone: Start: 10-01-2023 End: 10-01-2023 ambulatory Karina Carrera Other [facility] [employer] Other Start: 10-01-2023 Office outpatient ne w 20 minutes Karina Carrera [facility] Start: 12-26-2022 End: 12-27-2022 ambulatory Silvia X Orzech [place] Start: 12-26-2022 End: 12-26-2022 Lab Drop off Silvia X Orzech [facility] Start: 12-26-2022 End: 12-26-2022 Patient encounter procedure Silvia Staley [facility] Start: 12-01-2022 End: 12-02-2022 ambulatory DEISI ROLLINS Facility: Start: 11-14-2022 End: 11-14-[address] JAYDA SEBASTIAN . Facility: Start: 10-25-2022 End: 10-25-2022 [facility] Start: 10-25-2022 End: 10-25-2022 Emergency department patient visit [facility] Start: 10-19-2022 End: 10-19-[address] JAYDA SEBASTIAN . Facility: Start: 09-27-2022 End: 09-27-2022 Emergency department patient visit [facility] [place] Start: 09-27-2022 End: 09-27-2022 Emergency department patient visit [facility] Start: 05-10-2022 End: 05-10-[address] JAYDA SEBASTIAN . Facility: Procedures Date Procedure Procedure Detail Performing Clinician Start: 08-15-2024 Computed tomography of abdomen and pelvis with contrast Karina Carrera APRN Work Phone: Start: 04-17-2024 Plain X-ray of right elbow REYES Carrera Work Phone: Start: 02-07-2024 US, scrotum REYSE Carrera Work Phone: Start: 11-29-2023 X-ray of lumbar spin e, four or more views REYES Carrera Work Phone: Plan of Treatment Date Care Activity Detail Author Start: 10-27-2024 Patient referral [facility] Work Phone: Comprehensive metabo lic 2000 panel - Serum or Plasma [facility] Patient Education [facility] Work Phone: Patient referral [facility] Work Phone: XR Lumbar spine GE 4 Views [facility] Immunizations Immunization Date Immunization Notes Care Provider Fa cility 03-06-2019 meningococcal ACWY vaccine, unspecified formulation Silvia Orzech [facility] 03-06-2019 tetanus toxoid, redu abner diphtheria toxoid, and acellular pertussis vaccine, adsorbed Silvia Orzech [facility] 03-07-2011 DTaP, unspecified formulation Silvia Orzech [facility] 03-07-2011 hepatitis A vaccine, unspecified formulation Silvia Orzech [facility] 03-07-2011 measles, mumps and rubella virus vaccine Silvia Orzech [facility] 03-07-2011 poliovirus vaccine, unspecified formulation Silvia Orzech [facility] 03-07-2011 varicella virus vaccine Auro ra Orzech [facility] [facility] 11-14-2006 DTaP, unspecified formulation Silvia Orzech [facility] 11-14-2006 hepatitis A vaccine, unspecified formulation Silvia Orzech [facility] 11-14-2006 Hib, unspecified formulation Silvia Orzech [facility] 11-14-2006 measles, mumps, rubella, and varicella virus vaccine Silvia Orzech [facility] 01-24-2006 DTaP-hepatitis B and poliovirus vaccine Silvia Orzech [facility] 01-24-2006 Hib, unspecified formulation Silvia Orzech [facility] 2005 DTaP, unspecified formulation Silvia Orzech [facility] 2005 hepatitis B vaccine, pediatric or pediatric/adolescent dosage Silvia Orzech [facility] 2005 Hib, unspecified formulation Silvia Orzech [facility] 2005 poliovirus vaccine, unspecified formulation Silvia Orzech [facility] 2005 DTaP-hepatitis B and poliovirus vaccine Silvia Orzech [facility] 2005 Hib, unspecified formulation Silvia Orzech [facility] Care Payers Date Payer Category Payer Unknown [id number] 2023 Self-pay [id number] 1978 Unknown [id number] [id number] 1978 Unknown [id number] 2.16.840.1.139892.3.579.2.5 1978 Unknown [id number] 2.16.840.1.546299.3.579.2.5 1978 Unknown [id number] 2.16.840.1.446329.3.579.2.5 1978 Unknown [id number] 2.16.840.1.760091.3.579.2.7 27 1978 Unknown [id number] 2.16.840.1.181382.3.579.2.7 27 1978 Unknown [id number] 2.16.840.1.233537.3.579.2.7 27 1978 Unknown [id number] 2.16.840.1.481599.3.579.2.7 27 1959 Unknown [id number] 1959 Unknown [id number] Unknown [employer] [id number] Unknown [id number] 2.16.840.1.511852.3.579.2.5 31 Unknown [id number] 2.16.840.1.324980.3.579.2.5 31 Unknown [id number] 2.16.840.1.215217.3.579.2.5 31 Unknown [id number] 2.16.840.1.460220.3.579.2.5 31 Unknown [id number] 2.16.840.1.170259.3.579.2.5 31 Unknown [employer] [id number] Worker's Compensation [employer] [id number] Social History Date Type Detail Facility Tobacco [facility] Comment on above: denies. Tobacco smoking status No Smokin g Status Entered [facility] Sex Assigned At Male [facility] Start: 12-26-2022 End: 08-15-2024 Tobacco smoking status Never smoked tobacco (finding) [facility] Tobacco smoking status Never [facility] Start: 2005 Sex Assigned At Male [facility] Start: 08-25-2024 End: 12-31-2024 Sex Male (finding) [facility] Functional Status Date Assessment Result Facility 12-26-2022 Functional Status N/A [facility] 10-25-2022 Functional Status N/A [facility] 09-27-2022 Functional Status N/A [facility] Clinical Notes 11-01-2021 to 04-23-2025 Note Date & Type Note Facility 04-23-2025 Evaluation note Diagnosis Onset Date Resolution Anxiety acute April 23, 2025 12:53pm Bipolar 1 disorder acute 2024 12:53pm Depression acute April 23, 2025 12:53pm Fatigue acute April 23, 2025 12:53pm Sleep disturbance acute 2024 12:53pm [facility] Work Phone: 1(922) 950-637403-10-2025 Evaluation note* Diagnosis Onset Date Resolution Status Admit Date Anxiety acute October 27 2:28pm Depression acute October 27 2:28pm [facility] Work Phone: 1(689) 812-768103-10-2025 Evaluation note* Diagnosis Onset Date Resolution Status Admit Date Anxiety acute October 27 2:28pm Depression acute October 27 2:28pm Allergic rhinitis acute November 192024 1:23pm [facility] Work Phone: 1(271) 986-766003-10-2025 Hospital Discharge instructionsAmbulatory Orders* Referral to Psychiatry Time Frame: 10/27/24, Location: None Selected [facility] Work Phone: 1(994) 917-567701-06-2025 Evaluation note* Diagnosis Onset Date Resolution Status Admit Date GERD (gastroesophageal reflu x disease) acute August 25 1:43pm Anxiety acute October 27 2:28pm Depression acute October 27 2:28pm [facility] Work Phone: 1(947) 810-547002-12-2024 Evaluation note* Encounter Date Diagnosis Assessment Notes Treatment Notes Treatment Clinical Notes Sep, Other fatigue (ICD-10 - R53.83) Explained to pt and mother that conditions such asthyroid, anemia or vitamin deficiencies can cause fatigue. Strongly encouraged patient to get adequate sleep at night. May use Tylenol/ibuprofen as directed for any general discomfort or fevers. Pt verbalized understanding and agreement with tx plan. Sep, Right upper quadrant pain (ICD-10 - R10.11) Discussed symptoms and would recommend gallbladder ultrasound to rule out cause for vomting and diarrhea as well the intermittent upper right quadrant pain. Will call with results and further recommendations. Pt and his mother verbalizes understanding. Sep, Recurrent vomiting (ICD-10 - R11.10) Sep, Diarrhea, unspecified type (ICD-10 - R19.7) [employer] Other 05-09-2023 Hospital Discharge instructions Patient Education 12/26/2022 11:54:01 Pharyngitis Pharyngitis Pharyngitis is inflammation of the throat (pharynx). It is a very common cause of sore throat. Pharyngitis can be caused by a bacteria, but it is usually caused by a virus. Most cases of pharyngitis get better on their own without treatment. What are the causes? This condition may be caused by: Infection by viruses (viral). Viral pharyngitis spreads easily from person to person (is contagious) through coughing, sneezing, and sharing of personal items or utensils such as cups, forks, spoons,and toothbrushes. Infection by bacteria (bacterial). Bacterial pharyngitis may be spread by touching the nose or faceafter coming in contact with the bacteria, or through close contact, such as kissing. Allergies. Allergies can cause buildup of mucus in the throat (post-nasal drip), leading to inflammation and irritation. Allergies can also cause blocked nasal passages, forcing breathing through themouth, which dries and irritates the throat. What increases the risk? You are more likely to develop this condition if: You are 5 24 years old. You are exposed to crowded environments such as daycare, school, or dormitory living. You live in a cold climate. You have a weakened disease-fighting (immune) system. What are the signs or symptoms? Symptoms of this condition vary by the cause. Common symptoms of this condition include: Sore throat. Fatigue. Low-grade fever. Stuffy nose (nasal congestion) and cough. Headache. Other symptoms may include: Glands in the neck (lymph nodes) that are swollen. Skin rashes. Plaque-like film on the throat or tonsils. This is often a symptom of bacterial pharyngitis. Vomiting. Red, itchy eyes (conjunctivitis). Loss of appetite. Joint pain and muscle aches. Enlarged tonsils. How is this diagnosed? This condition may be diagnosed based on your medical history and a physical exam. Your health careprovider will ask you questions about your illness and your symptoms. A swab of your throat may be done to check for bacteria (rapid strep test). Other lab tests may also be done, depending on the suspected cause, but these are rare. How is this treated? Many times, treatment is not needed for this condition. Pharyngitis usually gets better in 3 4 dayswithout treatment. Bacterial pharyngitis may be treated with antibiotic medicines. Follow these instructions at home: Medicines Take uqfx-xmq-zrxuqzw and prescription medicines only as told by your health care provider. If you were prescribed an antibiotic medicine, take it as told by your health care provider. Do notstop taking the antibiotic even if you start to feel better. Use throat sprays to soothe your throat as told by your health care provider. Children can get pharyngitis. Do not give your child aspirin because of the association with Colton'ssyndrome. Managing pain To help with pain, try: Sipping warm liquids, such as broth, herbal tea, or warm water. Eating or drinking cold or frozen liquids, such as frozen ice pops. Gargling with a mixture of salt and water 3 4 times a day or as needed. To make salt water, completely dissolve 1 tsp (3 6 g) of salt in 1 cup (237 mL) of warm water. Sucking on hard candy or throat lozenges. Putting a cool-mist humidifier in your bedroom at night to moisten the air. Sitting in the bathroom with the door closed for 5 10 minutes while you run hot water in the shower. General instructions Do not use any products that contain nicotine or tobacco. These products include cigarettes, chewing tobacco, and vaping devices, such as e-cigarettes. If you need help quitting, ask your health careprovider. Rest as told by your health care provider. Drink enough fluid to keep your urine pale yellow. How is this prevented? To help prevent becoming infected or spreading infection: Wash your hands often with soap and water for at least 20 seconds. If soap and water are not available, use hand photographer apprentice. Do not touch your eyes, nose, or mouth with unwashed hands, and wash hands after touching these areas. Do not share cups or eating utensils. Avoid close contact with people who are sick. Contact a health care provider if: You have large, tender lumps in your neck. You have a rash. You cough up green, yellow-brown, or bloody mucus. Get help right away if: Your neck becomes stiff. You drool or are unable to swallow liquids. You cannot drink or take medicines without vomiting. You have severe pain that does not go away, even after you take medicine. You have trouble breathing, and it is not caused by a stuffy nose. You have new pain and swelling in your joints such as the knees, ankles, wrists, or elbows. These symptoms may represent a serious problem that is an emergency. Do not wait to see if the symptoms will go away. Get medical help right away. Call your local emergency services (911 in the [place] Do not drive yourself to the hospital. Summary Pharyngitis is redness, pain, and swelling (inflammation) of the throat (pharynx). While pharyngitis can be caused by a bacteria, the most common causes are viral. Most cases of pharyngitis get better on their own without treatment. Bacterial pharyngitis is treated with antibiotic medicines. This information is not intended to replace advice given to you by your health care provider. Make sure you discuss any questions you have with your health care provider. Document Revised: 11/02/2021 Document Reviewed: 11/02/2021 [employer] Patient Education 2022 [employer]. 12/26/2022 11:53:55 Upper Respiratory Infection, Adult Upper Respiratory Infection, Adult An upper respiratory infection (URI) is a common viral infection of the nose, throat, and upper airpassages that lead to the lungs. The most common type of URI is the common cold. URIs usually get better on their own, without medical treatment. What are the causes? A URI is caused by a virus. You may catch a virus by: Breathing in droplets from an infected person's cough or sneeze. Touching something that has been exposed to the virus (is contaminated) and then touching your mouth, nose, or eyes. What increases the risk? You are more likely to get a URI if: You are very young or very old. You have close contact with others, such as at work, school, or a health care facility. You smoke. You have long-term (chronic) heart or lung disease. You have a weakened disease-fighting system (immune system). You have nasal allergies or asthma. You are experiencing a lot of stress. You have poor nutrition. What are the signs or symptoms? A URI usually involves some of the following symptoms: Runny or stuffy (congested) nose. Cough. Sneezing. Sore throat. Headache. Fatigue. Fever. Loss of appetite. Pain in your forehead, behind your eyes, and over your cheekbones (sinus pain). Muscle aches. Redness or irritation of the eyes. Pressure in the ears or face. How is this diagnosed? This condition may be diagnosed based on your medical history and symptoms, and a physical exam. Your health care provider may use a swab to take a mucus sample from your nose (nasal swab). This sample can be tested to determine what virus is causing the illness. How is this treated? URIs usually get better on their own within 7 10 days. Medicines cannot cure URIs, but your health care provider may recommend certain medicines to help relieve symptoms, such as: Sqbn-yie-wmuwfxg cold medicines. Cough suppressants. Coughing is a type of defense against infection that helps to clear the respiratory system, so take these medicines only as recommended by your health care provider. Fever-reducing medicines. Follow these instructions at home: Activity Rest as needed. If you have a fever, stay home from work or school until your fever is gone or until your health care provider says your URI cannot spread to other people (is no longer contagious). Your health care provider may have you wear a face mask to prevent your infection from spreading. Relieving symptoms Gargle with a mixture of salt and water 3 4 times a day or as needed. To make salt water, completely dissolve 1 tsp (3 6 g) of salt in 1 cup (237 mL) of warm water. Use a cool-mist humidifier to add moisture to the air. This can help you breathe more easily. Eating and drinking Drink enough fluid to keep your urine pale yellow. Eat soups and other clear broths. General instructions Take inpv-bzp-qvahaqh and prescription medicines only as told by your health care provider. These include cold medicines, fever reducers, and cough suppressants. Do not use any products that contain nicotine or tobacco. These products include cigarettes, chewing tobacco, and vaping devices, such as e-cigarettes. If you need help quitting, ask your health careprovider. Stay away from secondhand smoke. Stay up to date on all immunizations, including the yearly (annual) flu vaccine. Keep all follow-up visits. This is important. How to prevent the spread of infection to others URIs can be contagious. To prevent the infection from spreading: Wash your hands with soap and water for at least 20 seconds. If soap and water are not available, use hand photographer apprentice. Avoid touching your mouth, face, eyes, or nose. Cough or sneeze into a tissue or your sleeve or elbow instead of into your hand or into the air. Contact a health care provider if: You are getting worse instead of better. You have a fever or chills. Your mucus is brown or red. You have yellow or brown discharge coming from your nose. You have pain in your face, especially when you bend forward. You have swollen neck glands. You have pain while swallowing. You have white areas in the back of your throat. Get help right away if: You have shortness of breath that gets worse. You have severe or persistent: ?Headache. ?Ear pain. ?Sinus pain. ?Chest pain. You have chronic lung disease along with any of the following: ?Making high-pitched whistling sounds when you breathe, most often when you breathe out (wheezing). ?Prolonged cough (more than 14 days). ?Coughing up blood. ?A change in your usual mucus. You have a stiff neck. You have changes in your: ?Vision. ?Hearing. ?Thinking. ?Mood. These symptoms may be an emergency. Get help right away. Call 911. Do not wait to see if the symptoms will go away. Do not drive yourself to the hospital. Summary An upper respiratory infection (URI) is a common infection of the nose, throat, and upper air passages that lead to the lungs. A URI is caused by a virus. URIs usually get better on their own within 7 10 days. Medicines cannot cure URIs, but your health care provider may recommend certain medicines to help relieve symptoms. This information is not intended to replace advice given to you by your health care provider. Make sure you discuss any questions you have with your health care provider. Document Revised: 03/08/2022 Document Reviewed: 03/08/2022 01[employer] Patient Education 2022 [employer]. 12/26/2022 11:44:21 Budget-Friendly Healthy Eating Budget-Friendly Healthy Eating There are many ways to save money at the grocery store and continue to eat healthy. You can be successful if you: Plan meals according to your budget. Make a grocery list and only purchase food according to your grocery list. Prepare food yourself at home. What are tips for following this plan? Reading food labels Compare food labels between brand name foods and the store brand. Often the nutritional value is the same, but the store brand is lower cost. Look for products that do not have added sugar, fat, or salt (sodium). These often cost the same but are healthier for you. Products may be labeled as: ?Sugar-free. ?Nonfat. ?Low-fat. ?Sodium-free. ?Low-sodium. Look for lean ground beef labeled as at least 92% lean and 8% fat. Shopping Buy only the items on your grocery list and go only to the areas of the store that have the items on your list. Use coupons only for foods and brands you normally buy. Avoid buying items you wouldn't normally buy simply because they are on sale. Check online and in newspapers for weekly deals. Buy healthy items from the bulk bins when available, such as herbs, spices, flour, pasta, nuts, anddried fruit. Buy fruits and vegetables that are in season. Prices are usually lower on in- season produce. Look at the unit tran on the tran tag. Use it to compare different brands and sizes to find out which item is the best deal. Choose healthy items that are often low-cost, such as carrots, potatoes, apples, bananas, and oranges. Dried or canned beans are a low-cost protein source. Buy in bulk and freeze extra food. Items you can buy in bulk include meats, fish, poultry, frozen fruits, and frozen vegetables. Avoid buying nlhpt-bl-sdf foods, such as pre-cut fruits and vegetables and pre-made salads. If possible, shop around to discover where you can find the best prices. Consider other retailers such as dollar stores, larger wholesale stores, local fruit and vegetable stands, and farmers markets. Do not shop when you are hungry. If you shop while hungry, it may be hard to stick to your list andbudget. Resist impulse buying. Use your grocery list as your official plan for the week. Buy a variety of vegetables and fruits by purchasing fresh, frozen, and canned items. Look at the top and bottom shelves for deals. Foods at eye level (eye level of an adult or child) are usually more expensive. Be efficient with your time when shopping. The more time you spend at the store, the more money youare likely to spend. To save money when choosing more expensive foods like meats and dairy: ?Choose cheaper cuts of meat, such as bone-in chicken thighs and drumsticks instead of skinless andboneless chicken. When you are ready to prepare the chicken, you can remove the skin yourself to make it healthier. ?Choose lean meats like chicken or turkey instead of beef. ?Choose canned seafood, such as tuna, salmon, or sardines. ?Buy eggs as a low-cost source of protein. ?Buy dried beans and peas, such as lentils, split peas, or kidney beans instead of meats. Dried beans and peas are a good alternative source of protein. ?Buy the larger tubs of yogurt instead of individual-sized containers. Choose water instead of sodas and other sweetened beverages. Avoid buying chips, cookies, and other junk food. These items are usually expensive and not healthy. Cooking Make extra food and freeze the extras in meal-sized containers or in individual portions for fast meals and snacks. Pre-cook on days when you have extra time to prepare meals in advance. You can keep these meals in the fridge or freezer and reheat for a quick meal. When you come home from the grocery store, wash, peel, and cut fruits and vegetables so they are ready to use and eat. This will help reduce food waste. Meal planning Do not eat out or get fast food. Prepare food at home. Make a grocery list and make sure to bring it with you to the store. If you have a smart phone, youcould use your phone to create your shopping list. Plan meals and snacks according to a grocery list and budget you create. Use leftovers in your meal plan for the week. Look for recipes where you can cook once and make enough food for two meals. Prepare budget-friendly types of meals like stews, casseroles, and stir-vazquez dishes. Try some meatless meals or try no cook meals like salads. Make sure that half your plate is filled with fruits or vegetables. Choose from fresh, frozen, or canned fruits and vegetables. If eating canned, remember to rinse them before eating. This will remove any excess salt added for packaging. Summary Eating healthy on a budget is possible if you plan your meals according to your budget, purchase according to your budget and grocery list, and prepare food yourself. Tips for buying more food on a limited budget include buying generic brands, using coupons only forfoods you normally buy, and buying healthy items from the bulk bins when available. Tips for buying cheaper food to replace expensive food include choosing cheaper, lean cuts of meat,and buying dried beans and peas. This information is not intended to replace advice given to you by your health care provider. Make sure you discuss any questions you have with your health care provider. Document Revised: 05/19/2021 Document Reviewed: 05/19/2021 01[employer] Patient Education 2022 [employer] 12/26/2022 11:44:20 BMI for Children and Teens BMI for Children and Teens What is BMI? Body mass index (BMI) is a number that is calculated from a person's weight and height. BMI can help estimate how much of a child's or teen's weight is composed of fat. BMI does not measure body fat directly. Rather, it is an alternative to procedures that directly measure body fat, which can be difficult and expensive. BMI for children and teens is calculated the same way as for adults. However, the results are interpreted differently because body fat will change in children and teens as they grow. What are BMI measurements used for? BMI is one of many screening tools used to identify possible weight problems. In children and teens, BMI is used to check for obesity, being overweight, being a healthy weight, or being underweight. BMI can help: Identify a possible weight problem that may be related to a medical condition or may increase the risk for medical problems. In children, a high amount of body fat can lead to weight-related diseasesand other health problems. However, being underweight can also signal health issues. Promote changes, such as changes in diet and exercise, to help reach a healthy weight. BMI screening can be repeated to see if these changes are working. Making changes at a young age can increase the chances for a healthy future. How is BMI calculated? BMI involves measuring a child's or teen's weight in relation to height. Both height and weight aremeasured, and the BMI is calculated from those numbers. This can be done either in [place] ([place] or metric measurements. Note that charts and online BMI calculators are available to help find a person's BMI quickly and easily without having to do these calculations yourself. To calculate BMI with French measurements: 1.Measure weight in pounds (lb). 2.Multiply the number of pounds by 703. 3.Measure height in inches. Then multiply that number by itself to get a measurement called inchessquared. For example, for a child who is 60 inches tall, the inches squared measurement would be equal to 60 inches x 60 inches, which is equal to 3,600 inches squared. 4.Divide the total from step 2 (number of lb x 703) by the total from step 3 (inches squared). Thisis the BMI. To calculate BMI with metric measurements: 1.Measure weight in kilograms (kg). 2.Measure height in meters (m). Then multiply that number by itself to get a measurement called meters squared. For example, for a child who is 1.5 m tall, the meters squared measurement would be equal to 1.5 m x 1.5 m, which is equal to 2.25 meters squared. 3.Divide the number of kilograms by the meters squared number. This is the BMI. What do the results mean? To interpret the meaning of the results, the BMI is plotted on a chart that compares the child's BMI to the BMI of other children (growth chart). These charts are used for children and teens because: Body fat changes in children and teens as they grow. Girls and boys differ in their body fat as they mature. As a result, BMI for children and teens, also called BMI-for-age, is gender specific and age specific. BMI-for-age is plotted on gender-specific growth charts. These charts are used for people from 220 years of age. Health administrator health care facility use the charts to identify a percentile that a child's BMI falls within. They can then identify underweight and overweight children based on the following guidelines: Underweight: BMI-for-age that is below the 5th percentile. Healthy weight: BMI-for-age that is at the 5th percentile or higher, but less than the 85th percentile. Overweight: BMI-for-age that is at the 85th percentile or higher. Obese: BMI-for-age in the overweight range that is at the 95th percentile or higher. The percentile number represents the percent of children that have a lower BMI. For example, being at the 60th percentile means that a child has a higher BMI than 60% of children who are the same gender and age. Where to find more information For more information about BMI, including tools to quickly calculate BMI, go to these websites: Centers for Disease Control and Prevention: www.cdc.gov [employer] [employer]: www.heart.org [employer] [employer]: www.healthychildren.org Summary BMI is a number that is calculated from a person's weight and height. It is one of many screening tools used to check for weight problems. In children, a high amount of body fat can lead to weight-related diseases and other health problems. Being underweight can also signal health issues. BMI can be used to promote changes, such as changes in diet and exercise, to help a child or teen reach a healthy weight. To interpret the meaning of the results, the BMI is plotted on a chart that compares the child's BMI to the BMI of other children who are the same gender and age. This information is not intended to replace advice given to you by your health care provider. Make sure you discuss any questions you have with your health care provider. Document Revised: 04/28/2020 Document Reviewed: 03/08/2020 [employer] Patient Education 2022 [employer]. Follow Up Care 12/26/2022 11:14:49 With:CHIOMA SULLIVAN, REE RODRIGUEZ, [facility] Address:Unknown When: Unknown [facility] 03-08-2023 Hospital Discharge instructions Patient Education 10/25/2022 17:54:21 Upper Respiratory Infection, Adult, Hkhs-cc-Esoo Upper Respiratory Infection, Adult An upper respiratory infection (URI) affects the nose, throat, and upper air passages. URIs are caused by germs (viruses). The most common type of URI is often called the common cold. Medicines cannot cure URIs, but you can do things at home to relieve your symptoms. URIs usually get better within 7 10 days. Follow these instructions at home: Activity Rest as needed. If you have a fever, stay home from work or school until your fever is gone, or until your doctor says you may return to work or school. ?You should stay home until you cannot spread the infection anymore (you are not contagious). ?Your doctor may have you wear a face mask so you have less risk of spreading the infection. Relieving symptoms Gargle with a salt-water mixture 3 4 times a day or as needed. To make a salt- water mixture, completely dissolve 1 tsp of salt in 1 cup of warm water. Use a cool-mist humidifier to add moisture to the air. This can help you breathe more easily. Eating and drinking Drink enough fluid to keep your pee (urine) pale yellow. Eat soups and other clear broths. General instructions Take qlog-ubi-htweiih and prescription medicines only as told by your doctor. These include cold medicines, fever reducers, and cough suppressants. Do not use any products that contain nicotine or tobacco. These include cigarettes and e-cigarettes. If you need help quitting, ask your doctor. Avoid being where people are smoking (avoid secondhand smoke). Make sure you get regular shots and get the flu shot every year. Keep all follow-up visits as told by your doctor. This is important. How to avoid spreading infection to others Wash your hands often with soap and water. If you do not have soap and water, use hand photographer apprentice. Avoid touching your mouth, face, eyes, or nose. Cough or sneeze into a tissue or your sleeve or elbow. Do not cough or sneeze into your hand or into the air. Contact a doctor if: You are getting worse, not better. You have any of these: ?A fever. ?Chills. ?Brown or red mucus in your nose. ?Yellow or brown fluid (discharge)coming from your nose. ?Pain in your face, especially when you bend forward. ?Swollen neck glands. ?Pain with swallowing. ?White areas in the back of your throat. Get help right away if: You have shortness of breath that gets worse. You have very bad or constant: ?Headache. ?Ear pain. ?Pain in your forehead, behind your eyes, and over your cheekbones (sinus pain). ?Chest pain. You have long-lasting (chronic) lung disease along with any of these: ?Wheezing. ?Long-lasting cough. ?Coughing up blood. ?A change in your usual mucus. You have a stiff neck. You have changes in your: ?Vision. ?Hearing. ?Thinking. ?Mood. Summary An upper respiratory infection (URI) is caused by a germ called a virus. The most common type of URI is often called the common cold. URIs usually get better within 7 10 days. Take naze-iqg-txmxpwh and prescription medicines only as told by your doctor. This information is not intended to replace advice given to you by your health care provider. Make sure you discuss any questions you have with your health care provider. Document Released: 01/22/2009 Document Revised: 08/14/2019 Document Reviewed: 03/29/2018 [employer] Patient Education 2020 [employer]. 10/25/2022 17:54:21 Viral Conjunctivitis, Adult Viral Conjunctivitis, Adult Viral conjunctivitis is an inflammation of the clear membrane that covers the white part of your eye and the inner surface of your eyelid (conjunctiva). The inflammation is caused by a viral infection. The blood vessels in the conjunctiva become inflamed, causing the eye to become red or pink, and often itchy. Viral conjunctivitis can be easily passed from one person to another (is contagious). This condition is often called pink eye. What are the causes? This condition is caused by a virus. A virus is a type of contagious germ. It can be spread by touching objects that have been contaminated with the virus, such as doorknobs or towels. It can also bepassed through droplets, such as from coughing or sneezing. What are the signs or symptoms? Symptoms of this condition include: Eye redness. Tearing or watery eyes. Itchy and irritated eyes. Burning feeling in the eyes. Clear drainage from the eye. Swollen eyelids. A gritty feeling in the eye. Light sensitivity. This condition often occurs with other symptoms, such as a fever, nausea, or a rash. How is this diagnosed? This condition is diagnosed with a medical history and physical exam. If you have discharge from your eye, the discharge may be tested to rule out other causes of conjunctivitis. How is this treated? Viral conjunctivitis does not respond to medicines that kill bacteria (antibiotics). Treatment for viral conjunctivitis is directed at stopping a bacterial infection from developing in addition to the viral infection. Treatment also aims to relieve your symptoms, such as itching. This may be done with antihistamine drops or other eye medicines. Rarely, steroid eye drops or antiviral medicines maybe prescribed. Follow these instructions at home: Medicines Take or apply wqiv-dqn-yjfkxhj and prescription medicines only as told by your health care provider. Be very careful to avoid touching the edge of the eyelid with the eye drop bottle or ointment tube when applying medicines to the affected eye. Being careful this way will stop you from spreading theinfection to the other eye or to other people. Eye care Avoid touching or rubbing your eyes. Apply a warm, wet, clean washcloth to your eye for 10 20 minutes, 3 4 times per day or as told by your health care provider. If you wear contact lenses, do not wear them until the inflammation is gone and your health care provider says it is safe to wear them again. Ask your health care provider how to sterilize or replaceyour contact lenses before using them again. Wear glasses until you can resume wearing contacts. Avoid wearing eye makeup until the inflammation is gone. Throw away any old eye cosmetics that may be contaminated. Gently wipe away any drainage from your eye with a warm, wet washcloth or a cotton ball. General instructions Change or wash your pillowcase every day or as told by your health care provider. Do not share towels, pillowcases, washcloths, eye makeup, makeup brushes, contact lenses, or glasses. This may spread the infection. Wash your hands often with soap and water. Use paper towels to dry your hands. If soap and water are not available, use hand photographer apprentice. Try to avoid contact with other people for one week or as told by your health care provider. Contact a health care provider if: Your symptoms do not improve with treatment or they get worse. You have increased pain. Your vision becomes blurry. You have a fever. You have facial pain, redness, or swelling. You have yellow or green drainage coming from your eye. You have new symptoms. This information is not intended to replace advice given to you by your health care provider. Make sure you discuss any questions you have with your health care provider. Document Released: 10/27/2003 Document Revised: 11/25/2019 Document Reviewed: 02/20/2017 [employer] Patient Education 2020 [employer]. 10/25/2022 17:54:21 Bacterial Conjunctivitis, Adult, Tqxh-of-Sbkn Bacterial Conjunctivitis, Adult Bacterial conjunctivitis is an infection of your conjunctiva. This is the clear membrane that covers the white part of your eye and the inner part of your eyelid. This infection can make your eye: Red or pink. Itchy. This condition spreads easily from person to person (is contagious) and from one eye to the other eye. What are the causes? This condition is caused by germs (bacteria). You may get the infection if you come into close contact with: ?A person who has the infection. ?Items that have germs on them (are contaminated), such as face towels, contact lens solution, or eye makeup. What increases the risk? You are more likely to get this condition if you: Have contact with people who have the infection. Wear contact lenses. Have a sinus infection. Have had a recent eye injury or surgery. Have a weak body defense system (immune system). Have dry eyes. What are the signs or symptoms? Thick, yellowish discharge from the eye. Tearing or watery eyes. Itchy eyes. Burning feeling in your eyes. Eye redness. Swollen eyelids. Blurred vision. How is this treated? Antibiotic eye drops or ointment. Antibiotic medicine taken by mouth. This is used for infections that do not get better with drops or ointment or that last more than 10 days. Cool, wet cloths placed on the eyes. Artificial tears used 2 6 times a day. Follow these instructions at home: Medicines Take or apply your antibiotic medicine as told by your doctor. Do not stop taking or applying the antibiotic even if you start to feel better. Take or apply vsra-nsx-kpbnclw and prescription medicines only as told by your doctor. Do not touch your eyelid with the eye-drop bottle or the ointment tube. Managing discomfort Wipe any fluid from your eye with a warm, wet washcloth or a cotton ball. Place a clean, cool, wet cloth on your eye. Do this for 10 20 minutes, 3 4 times per day. General instructions Do not wear contacts until the infection is gone. Wear glasses until your doctor says it is okay towear contacts again. Do not wear eye makeup until the infection is gone. Throw away old eye makeup. Change or wash your pillowcase every day. Do not share towels or washcloths. Wash your hands often with soap and water. Use paper towels to dry your hands. Do not touch or rub your eyes. Do not drive or use heavy machinery if your vision is blurred. Contact a doctor if: You have a fever. You do not get better after 10 days. Get help right away if: You have a fever and your symptoms get worse all of a sudden. You have very bad pain when you move your eye. Your face: ?Hurts. ?Is red. ?Is swollen. You have sudden loss of vision. Summary Bacterial conjunctivitis is an infection of your conjunctiva. This infection spreads easily from person to person. Wash your hands often with soap and water. Use paper towels to dry your hands. Take or apply your antibiotic medicine as told by your doctor. Contact a doctor if you have a fever or you do not get better after 10 days. This information is not intended to replace advice given to you by your health care provider. Make sure you discuss any questions you have with your health care provider. Document Released: 05/15/2009 Document Revised: 11/25/2019 Document Reviewed: 03/12/2019 [employer] Patient Education 2020 01[employer] Follow Up Care 10/25/2022 17:03:24 With:JAYDA SEBASTIAN Address: [address] [place] [id number] Business (1) When:10/28/2022 17:35:20 Comments:Follow-up with your primary care provider in 3 to 5 days. If symptoms worsen, do not improve, or new symptoms arise please report back to emergency department for further evaluation. [facility]02-08-2023 Hospital Discharge instructions Patient Education 09/27/2022 19:24:26 Chronic Back Pain Chronic Back Pain When back pain lasts longer than 3 months, it is called chronic back pain. The cause of your back pain may not be known. Some common causes include: Wear and tear (degenerative disease) of the bones, ligaments, or disks in your back. Inflammation and stiffness in your back (arthritis). People who have chronic back pain often go through certain periods in which the pain is more intense (flare-ups). Many people can learn to manage the pain with home care. Follow these instructions at home: Pay attention to any changes in your symptoms. Take these actions to help with your pain: Activity Avoid bending and other activities that make the problem worse. Maintain a proper position when standing or sitting: ?When standing, keep your upper back and neck straight, with your shoulders pulled back. Avoid slouching. ?When sitting, keep your back straight and relax your shoulders. Do not round your shoulders or pull them backward. Do not sit or muffler installer one place for long periods of time. Take brief periods of rest throughout the day. This will reduce your pain. Resting in a lying or standing position is usually better than sitting to rest. When you are resting for longer periods, mix in some mild activity or stretching between periods ofrest. This will help to prevent stiffness and pain. Get regular exercise. Ask your health care provider what activities are safe for you. Do not lift anything that is heavier than 10 lb (4.5 kg). Always use proper lifting technique, which includes: ?Bending your knees. ?Keeping the load close to your body. ?Avoiding twisting. Sleep on a firm mattress in a comfortable position. Try lying on your side with your knees slightlybent. If you lie on your back, put a pillow under your knees. Managing pain If directed, apply ice to the painful area. Your health care provider may recommend applying ice during the first 24 48 hours after a flare-up begins. ?Put ice in a plastic bag. ?Place a towel between your skin and the bag. ?Leave the ice on for 20 minutes, 2 3 times per day. If directed, apply heat to the affected area as often as told by your health care provider. Use theheat source that your health care provider recommends, such as a moist heat pack or a heating pad. ?Place a towel between your skin and the heat source. ?Leave the heat on for 20 30 minutes. ?Remove the heat if your skin turns bright red. This is especially important if you are unable to feel pain, heat, or cold. You may have a greater risk of getting burned. Try soaking in a warm tub. Take vzyn-uum-utjxwrw and prescription medicines only as told by your health care provider. Keep all follow-up visits as told by your health care provider. This is important. Contact a health care provider if: You have pain that is not relieved with rest or medicine. Get help right away if: You have weakness or numbness in one or both of your legs or feet. You have trouble controlling your bladder or your bowels. You have nausea or vomiting. You have pain in your abdomen. You have shortness of breath or you faint. This information is not intended to replace advice given to you by your health care provider. Make sure you discuss any questions you have with your health care provider. Document Released: 2005 Document Revised: 11/27/2019 Document Reviewed: 02/13/2018 [employer] Patient Education 2020 [employer]. Follow Up Care 09/27/2022 16:29:48 [facility] Address:Unknown When:09/30/2022 19:24:19 With:JAYDA SEBASTIAN Address: [address] [place] [id number] [facility] (1) When:Within 3 Day(s) [facility]03-15-2022 NoteHNO ID: [id number] Author: Ren Joaquin MD Service: ? Author Type: Physician Type: Progress Notes Filed: 11/01/2021 12:21 PM Note Text: ORTHOPAEDIC SURGERY Referring Physician: Jayda Sebastian [address] [place] [id number] CC: Back pain and leg pain HPI: Edgar Nuñez is a pleasant 16 year old male who is here with the chief complaint of back pain and leg pain. He is 6 foot 4 and loves playing football he is a freshman. He has had back pain for as long as he can remember. 2 weeks ago he had an MRI which is showing disc herniation mainly L5-S1 but a small 1 at L4-5. He states anytime he sits both legs can go numb. He has not had bowel or bladder change. He states that the back pain is about 70% leg pain 30% in its bilateral. He has been told that he cannot do football activities and here today to see what he can do and where to go with this. He has been avoiding deadlifts. He states that squats creates pain. Here today for further assessment. No past medical history on file. No past surgical history on file. No family history on file. Social History Tobacco Use - Smoking status: Not on file - Smokeless tobacco: Not on file Substance Use Topics - Alcohol use: Not on file - Drug use: Not on file ALLERGIES No Known Allergies No current outpatient medications on file prior to visit. No current facility-administered medications on file prior to visit. Review of systems: General: no fever, chills, night sweats Skin: no rashes Head: no headaches Eyes: no vision problems Ears: no recent ear infections Nose: no recent rhinorrhea Mouth/throat: No throat pain Respiratory: no cough Cardiovascular: no cyanosis Gastrointestinal: denies N/V Genitourinary: no blood in urine Endocrine: no heat intolerance Musculoskeletal: SEE HPI Skin/lymphatics: no easy bruising Neuropsychiatric: no tearfulness All other systems negative other than those listed above Physical Exam: On examination today he is a nice 16-year-old male who is quite tall and fit. He is able to toe walk heel walk duck walk and jump with good strength. Tender to palpation throughout the lower back paraspinal musculature. Straight leg raise creates back pain and some mild leg pain. Good overall strength identified today. He is in no acute distress. No erythema or fluctuance identified. No skin irritation or breakdown. Some mild acne identified. Imaging: Radiographs are reviewed showing no evidence spondylolysis nor spondylolisthesis and MRI shows a moderate disc herniation L5-S1 and less so at 4- L5. Assessment/Plan: Diagnosis: Back pain with radiculopathy with disc herniation. Plan: We have reviewed in detail overall findings and expectations. We have reviewed the disc herniation. We reviewed concerns associated with this. We have discussed operative and nonoperative management for this. We have discussed the benefits of core stretching and strengthening. I would also like to get him involved with my colleagues Dr. Sebastian or Dr. Motley for their thoughts associated with surgical excision of the herniated disc. Ren Joaquin, [facility] No data available for this section [facility] Diagnosis Onset Date Resolution Status Chronic back pain acute Herniated lumbar intervertebral disc acute [facility] Work Phone: Evaluation noteNo assessment information available [facility] Work Phone: Evaluation note* Diagnosis Onset Date Resolution Status Contusion of elbow, right ac [place] Contusion of ulnar nerve acu te [facility] Work Phone: Evaluation note* Diagnosis Onset Date Resolution Status Contusion of elbow, right ac [place] Contusion of ulnar nerve acu te Contusion of elbow, right ac [place] Contusion of ulnar nerve acu te [facility] Work Phone: Evaluation note* Diagnosis Onset Date Resolution Status Contusion of elbow, right ac [place] Contusion of ulnar nerve acu te Contusion of elbow, right ac [place] Contusion of ulnar nerve acu te Anxiety acute Other fatigue acute [facility] Work Phone: Evaluation note* Diagnosis Onset Date Resolution Status Admit Date GERD (gastroesophageal reflu x disease) acute August 25 1:43pm [facility] Work Phone: History general Narrative - Reported* Type Description Date Medical History spina bifida- mild [employer] Other Hospital Discharge instructions No data available for this section [facility] Additional Instructions Alternate Tylenol and ibuprofen as needed for pain Elevate scrotum using rolled towel Return to emergency room for worsening pain, nausea vomiting, blood in urine, inability to urinate, or [facility] Discharge instructions Additional Instructions Continue rest ice elevate Use the arm sling as needed for support stability Continue the prednisone once a day for 4 more days After prednisone may apply the diclofenac gel 4 times a day into the elbow Follow-up with either family doctor or [place] [facility] He should be cleared by a physician before returning to football Return to the ER if there is a loss of circulation in the arm so the entire arm goes weak unable to move the arm severe uncontrollable pain or any other [facility] Work Phone: Progress note No data available for this section [facility]ative)No reason for referral [facility] Work Phone: Summary Purpose Family History Relationship Condition Age at Onset Recorded Date/T micki father Unknown Advance Directives Advance Directive Response Recorded Date/ Time Advance Directives No February 25 2:15pm Advance Directive Response Recorded Date/ Time Advance Directives No February 25 1:15pm Chief Complaint and Reason for Visit Chief Complaint Back Pain-Restrictio ns for work Reason for Visit Chronic back pain Herniated lumbar intervertebral disc Chief Complaint Back Pain-Restrictio ns for work M51.26;M54.9;G89.29 Reason for Visit Chronic back pain Herniated lumbar intervertebral disc Chief Complaint Back Pain-Restrictio ns for work M51.26;M54.9;G89.29 [id number] Reason for Visit Chronic back pain Herniated lumbar intervertebral disc Chief Complaint [id number] l rt arm injury Chief Complaint [id number] l rt arm injury ER [facility] RT ELBOW INJURY WX Reason for Visit Contusion of elbow, right Contusion of ulnar nerve Chief Complaint [id number] l rt arm injury ER [facility] RT ELBOW INJURY WX R Elbow Injury Reason for Visit Contusion of elbow, right Contusion of ulnar nerve Contusion of elbow, right Contusion of ulnar nerve Chief Complaint rt arm injury ER [facility] RT ELBOW INJURY WX R Elbow Injury Thyroid Check Reason for Visit Contusion of elbow, right Contusion of ulnar nerve Contusion of elbow, right Contusion of ulnar nerve Anxiety Other fatigue Chief Complaint rt arm injury ER [facility] [place] RT ELBOW INJURY WX R Elbow Injury Thyroid Check F41.9 R53.83 Reason for Visit Contusion of elbow, right Contusion of ulnar nerve Contusion of elbow, right Contusion of ulnar nerve Anxiety Other fatigue Chief Complaint Admit Date abd pain August 14, 2024 11:48pm ER f/u vomiting/diarrhea August 25 1:43pm Reason for Visit Admit Date GERD (gastroesophageal reflux disease) J anuary 2024 1:43pm Chief Complaint Admit Date abd pain August 14, 2024 11:48pm ER f/u vomiting/diarrhea August 25 1:43pm Mental concerns October 27, 2024 2:2 8pm Reason for Visit Admit Date GERD (gastroesophageal reflux disease) J anuary 2024 1:43pm Anxiety October 27, 2024 2:2 8pm Depression October 27, 2024 2:2 8pm Chief Complaint Admit Date Mental concerns October 27, 2024 2:2 8pm congestion, cough, lung pain December 08, 2024 1:23pm Reason for Visit Admit Date Anxiety October 27, 2024 2:2 8pm Depression October 27, 2024 2:2 8pm Chief Complaint Admit Date Mental concerns October 27, 2024 2:2 8pm congestion, cough, lung pain December 08, 2024 1:23pm URI December 31, 2024 2:33p m Reason for Visit Admit Date Anxiety October 27, 2024 2:2 8pm Depression October 27, 2024 2:2 8pm Allergic rhinitis December 08, 2024 1:2 3pm Chief Complaint Admit Date medication discussion April 23 12:53pm Reason for Visit Admit Date Anxiety April 23, 2025 12:53pm Bipolar 1 disorder April 23, 2025 12:53pm Depression April 23, 2025 12:53pm Fatigue April 23, 2025 12:53pm Sleep disturbance April 23, 2025 12:53pm Additional Source Comments (unrecognized sect ion and content) No Status Records FoundNo Status Records FoundNo Status Records FoundNo Status Records FoundNo Status Records Found INFORMATION SOURCE (unrecogn ized section and content) DATE CREATED AUTHOR 11/11/[address] [facility] DATE CREATED AUTHOR AUTHOR'S ORGANIZ ATION 11/18/2021 [facility] DATE CREATED AUTHOR AUTHOR'S ORGANIZ ATION 12/07/2022 [facility] DATE CREATED AUTHOR AUTHOR'S ORGANIZ ATION 12/27/2022 [facility] DATE CREATED AUTHOR AUTHOR'S ORGANIZ ATION 09/02/2024 [facility] Patient Care team informatio n (unrecognized section and content) Team Status: Active Member Role Status Dates PHYSICIAN NO FAMILY Primary Care Provider Active Team Status: Active Member Role Status Dates PHYSICIAN NO FAMILY Primary Care Provider Active Start: October 03, 2023 Karina Carrera APRN ADJUSTMENT EXAMINER-C Attending Provider Active Start: September Team Status: Inactive Member Role Status Dates PHYSICIAN NO FAMILY Primary Care Provider Active Start: November 23, 2023 End: November 23, 2023 Karina Carrera APRN ADJUSTMENT EXAMINER-C Attending Provider Act geovani Start: November 23, 2023 End: November 23, 2023 Team Status: Active Member Role Status Dates Karina Carrera APRN ADJUSTMENT EXAMINER-C Primary Care Provider Active Team Status: Inactive Member Role Status Dates Karina Carrera APRN ADJUSTMENT EXAMINER-C Primary Care Provider, Attending Provider Active Start: November 29, 2023 End: November 29, 2023 Team Status: Inactive Member Role Status Dates Karina Carrera APRN ADJUSTMENT EXAMINER-C Primary Care Provider Active Start: February 07, 2024 End: February 07, 2024 Karen Kelly APRN Emergency Provider Active Start: February 07, 2024 End: February 07, 2024 Team Status: Inactive Member Role Status Dates Karina Carrera APRN ADJUSTMENT EXAMINER-C Primary Care Provider Active Start: April 17, 2024 End: April 17, 2024 Ramila Deleon [facility] Emergency Provider Active Start: April 17, 2024 End: April 17, 2024 Team Status: Inactive Member Role Status Dates Karina Carrera APRN ADJUSTMENT EXAMINER-C Primary Care Provider Active Start: April 222023 End: April 22, 2024 Jorge Perla MD Attending Provider Active Star t: April 22, 2024 End: April 22, 2024 Team Status: Inactive Member Role Status Dates Karina Carrera APRN ADJUSTMENT EXAMINER-C Primary Care Provider, Attending Provider Active Start: April 25, 2024 End: April 25, 2024 Team Status: Inactive Member Role Status Dates Karina Carrera APRN ADJUSTMENT EXAMINER-C Primary Care Provider, Attending Provider Active Start: May 22, 2024 End: May 22, 2024 Team Status: Inactive Member Role Status Dates Karina Carrera APRN ADJUSTMENT EXAMINER-C Primary Care Provider, Attending Provider Active Start: May 26, 2024 End: May 26, 2024 Team Status: Inactive Member Role Status Dates Karina Carrera ADJUDICATION SPECIALIST ADJUSTMENT EXAMINER-C Primary Care Provider Active Start: August 142023 End: August 15, 2024 Jorge Parker Jr, MD Emergency Provider Active Start: August 14, 2024 End: August 15, 2024 Team Status: Inactive Member Role Status Dates Karina Carrera ADJUDICATION SPECIALIST ADJUSTMENT EXAMINER-C Primary Care Provider, Attending Provider Active Start: August 25, 2024 End: August 25, 2024 Team Status: Inactive Member Role Status Dates Karina Carrera ADJUDICATION SPECIALIST ADJUSTMENT EXAMINER-C Primary Care Provider, Attending Provider Active Start: October 27, 2024 End: October 27, 2024 Team Status: Inactive Member Role Status Dates Karina Carrera APRN ADJUSTMENT EXAMINER-C Primary Care Provider, Attending Provider Active Start: December 08, 2024 End: December 08, 2024 Team Status: Inactive Member Role Status Dates Karina Carrera ADJUDICATION SPECIALIST ADJUSTMENT EXAMINER-C Primary Care Provider, Attending Provider Active Start: December 31, 2024 End: December 31, 2024 Team Status: Inactive Member Role Status Dates Karina Carrera ADJUDICATION SPECIALIST ADJUSTMENT EXAMINER-C Primary Care Provider Active Start: April 232024 End: April 23, 2025 Karina Carrera ADJUDICATION SPECIALIST ADJUSTMENT EXAMINER-C Attending Provider Active Start: April End: April 23, 2025 REASON FOR VISIT (unrecogniz ed section and content) establish Goals (unrecognized section and content) Goals may be documented in a n alternate section FOR RECORDS PERTAINING TO PATIENTS WHO ARE OR HAVE BEEN ENROLLED IN A CHEMICAL DEPENDENCY/SUBSTANCEABUSE PROGRAM, SOME INFORMATION MAY BE OMITTED. This clinical summary was aggregated from multiple sources. Caution should be exercised in using it in the provision of clinical care. This summary normalizes information from multiple sources, and as a consequence, information in this document may materially change the coding, format and clinical context of patient data. In addition, data may be omitted in some cases. CLINICAL DECISIONS SHOULD BE BASED ON THE PRIMARY CLINICAL RECORDS. [facility] [id number] [facility]. provides no warranty or guarantee of the accuracy or completeness of information in this document.
== END 2025-04-24 15:29 | disposition home or self-care (01) ==
PROVIDERS: PCP Nurse Practitioner Family; Visit Provider Nurse Practitioner Family
DX: G47.9 Sleep disorder, unspecified (principal); R53.83 Other fatigue
CPT/HCPCS: 36415; 84402; 84403